=== PATIENT | female | born 1970 | race Hispanic/Latino ===

== ENCOUNTER 2017-01-23 10:50 | Emergency (ER) | payer OTHER, SELFPAY ==
--- NOTE | 2017-01-23 12:46 | RAD ---
CHEST 1 VIEW: HISTORY: Cough. COMPARISON: 10/21/16. FINDINGS: Cardiac silhouette is magnified by projection. Pulmonary vasculature is unremarkable. Mediastinum i s midline. There is no lobar consolidation or evidence of pneumothorax. IMPRESSION: No active cardiopulmonary abnormalities are demonstrated. POS: [facility]
== END 2017-01-23 13:17 | disposition home or self-care (01) ==
LOC: ERS 10:50
DX: J06.9 Acute upper respiratory infection, unspecified (principal); E11.9 Type 2 diabetes mellitus without complications; F41.9 Anxiety disorder, unspecified; Z87.891 Personal history of nicotine dependence; Z79.4 Long term (current) use of insulin; Z79.899 Other long term (current) drug therapy
CPT/HCPCS: 71010

== ENCOUNTER 2017-08-11 17:14 | Emergency (ER) | payer OTHER, SELFPAY ==
[2017-08-11] MEDS ORDERED: Ketorolac Tromethamine 30 MG/ML VIAL ONE (17:28)
[2017-08-11 17:41] LABS: Bilirubin Negative (Negative); Blood, Urine Trace (Negative); Clarity Cloudy (Clear); Glucose, Urine (Dipstick) 500 mg/dL (Negative); Leukocyte Negative (Negative); Nitrite Negative (Negative); Protein, Urine (Dipstick) Negative (Neg-Trace); Specific Gravity, Urine 1.015 (1.005-1.030); Urobilinogen 0.2 mg/dL (0.2-1.0)
[2017-08-11 17:43] LABS: Bacteria/HPF 3+ HPF (None Seen); RBC/HPF 0-3 HPF (0-3)
== END 2017-08-11 17:56 | disposition home or self-care (01) ==
LOC: SCSER 17:14
DX: N39.0 Urinary tract infection, site not specified (principal); E11.9 Type 2 diabetes mellitus without complications; F41.9 Anxiety disorder, unspecified; Z87.442 Personal history of urinary calculi; Z79.899 Other long term (current) drug therapy; Z79.4 Long term (current) use of insulin
CPT/HCPCS: 81003; 81015; 87077; 87086; 96372; J1885

== ENCOUNTER 2017-12-18 11:28 | Emergency (ER) | payer OTHER ==
[2017-12-18] MEDS ORDERED: Ondansetron ODT 4 MG TAB ONE (12:56)
[2017-12-18] MEDS ORDERED: Morphine 4 MG/ML VIAL ONE (12:56)
[2017-12-18 12:59] LABS: #Eosinphils 0.1 thou/uL (0.0-0.7); #Lymphocytes 2.4 thou/uL (1.20-3.40); #Monocytes 0.9 thou/uL (0.11-0.59); #Neutrophils 6.7 thou/uL (1.40-6.50); %Basophils 0.3 % (0.0-1.0); %Eosinophils 0.5 % (0.0-10.0); %Lymphocytes 23.5 % (21.0-51.0); %Neutrophils 66.7 % (42.0-75.0); Hemoglobin 10.9 g/dL (12.0-16.0); Mean Corpuscular HGB CONC 29.7 g/dL (32.0-36.0); Mean Corpuscular Hemoglobin 21.9 pg (27.0-31.0); Mean Corpuscular Volume 73.9 fL (78.0-98.0); Mean Platelet Volume 7.3 fL (7.4-10.4); Platelet Count 488 thou/uL (130-400); RBC Distribution Width 17.1 % (11.5-14.5); Red Blood Cell (RBC) Count 4.97 mill/uL (4.20-5.40)
[2017-12-18 13:03] LABS: ALT (SGPT) 9 U/L (8-55); AST (SGOT) 14 U/L (5-34); Albumin 3.4 g/dL (3.5-5.0); Alkaline Phosphatase 92 U/L (40-150); Anion Gap 9 mmol/L (10-20); BUN (Urea Nitrogen) 12 mg/dL (7.0-18.7); Bilirubin, Total 0.3 mg/dL (0.2-1.2); CK (CPK) 34 U/L (29-168); CKMB 0.8 ng/mL (0-6.6); Calc. Creatinine Clearance 0 mL/min (70-130); Calcium 8.8 mg/dL (7.8-10.44); Carbon Dioxide 28 mmol/L (22-29); Chloride 101 mmol/L (98-107); Estimated GFR-MDRD 83; Globulin 3.3 g/dL (2.4-3.5); Glucose 161 mg/dL (70-105); Lipase 12 U/L (8-78); Potassium 3.9 mmol/L (3.5-5.1); Protein, Total 6.7 g/dL (6.0-8.3); Sodium 134 mmol/L (136-145); Troponin I Less than 0.010 ng/mL (< 0.028)
[2017-12-18 13:14] LABS: Hypochromia SLIGHT = 6-15 cells (100X) (0-5/hpf); MDiff Complete? YES; Microcytosis SLIGHT = 6-15 cells (100X) (0-5/hpf); PLT Morphology Comment Appears Increased; Polychromasia SLIGHT = 2-3 cells (100X) (0-2/hpf)
[2017-12-18] MEDS ORDERED: ISOVUE-370 76%-LOCM 1 ML ONE (13:31)
[2017-12-18] MEDS ORDERED: Iopamidol 370 76% 50 ML VIAL FS ONE (13:31)
[2017-12-18 13:47] LABS: Bilirubin Negative (Negative); Blood, Urine Negative (Negative); Clarity CLEAR (Clear); Glucose, Urine (Dipstick) Negative (Negative); Leukocyte Negative (Negative); Nitrite Negative (Negative); Protein, Urine (Dipstick) Negative (Neg-Trace); Specific Gravity, Urine 1.033 (1.002-1.036); Urobilinogen 0.2 mg/dL (0.2-1.0); pH, Urine 7.5 (5.0-9.0)
--- NOTE | 2017-12-18 13:55 | CT ---
CT OF THE ABDOMEN AND PELVIS WITH IV CONTRAST: INDICATION: History of abdominal pain. FINDINGS: There are new reticulonodular opacities seen within the lateral aspect of the left lower lobe which i s new from a comparison in 02/23/2016. There is otherwise subsegmental volume loss. There is wall t hickening involving the distal esophagus. There is postsurgical change of a gastroplasty. There is stable fatty infiltration of the liver. Adrenal glands are normal appearing. The visualize d spleen appears within normal limits. The visualized pancreas is normal appearing. No hydronephros is is evident. No lymphadenopathy is evident. No free fluid is demonstrated. The bladder, rectum, and perirectal soft tissues are unremarkable. There is a normal appendix in the right lower quadrant of the abdomen. There is diffuse osteopenia. There is scattered degenerative and osteoarthritic change. No acute os seous abnormality is evident. IMPRESSION: 1. No CT explanation for the patient's abdominal pain. 2. Reticulonodular opacities within the left lower lobe can be seen with a respiratory bronchiolitis . Recommend correlation with the clinical examination. Nonemergent CT thorax followup may be helpfu l to document resolution in 6-8 weeks. 3. Wall thickening the distal esophagus can be related to under distention or possible esophagitis. Malignancy is felt to be less likely, but cannot be entirely excluded. 4. Gastroplasty changes. 5. Fatty liver. 6. Other chronic findings as above. POS: [facility]
--- NOTE | 2017-12-23 11:21 | EKG ---
Test Reason : Blood Pressure : / mmHG Vent. Rate : 068 BPM Atrial Rate : 068 BPM P-R Int : 112 ms QRS Dur : 086 ms QT Int : 474 ms P-R-T Axes : 037 078 016 degrees QTc Int : 504 ms Normal sinus rhythm Prolonged QT Abnormal ECG Confirmed by LAURENT MUHAMMAD, FRANCO (12), photo editor SHERMAN HAMPTON ([id number]) on 12/23/2017 11:20:50 AM Referred By: LAURENT Confirmed By:FRANCO MANCILLA MD
== END 2017-12-18 14:22 | disposition home or self-care (01) ==
LOC: ERS 11:28
DX: E86.0 Dehydration (principal); R10.13 Epigastric pain; R19.7 Diarrhea, unspecified; E11.9 Type 2 diabetes mellitus without complications; Z87.891 Personal history of nicotine dependence; Z79.4 Long term (current) use of insulin; Z79.899 Other long term (current) drug therapy
CPT/HCPCS: 74177; 80053; 81003; 82553; 83690; 84484; 85025; 93005; 96361; 96374; J2270; Q0162

== ENCOUNTER 2018-04-24 14:35 | Outpatient (CLI) | payer OTHER, BC ==
--- NOTE | 2018-04-24 15:24 | ULT ---
LIMITED ULTRASOUND LEFT BREAST: Date: 04/24/18 HISTORY: Pain in lower left breast. FINDINGS: Limited sonographic evaluation was obtained of the left breast in the region of patient's focal area of pain, with images obtained from the 5:00 to 7:00 position of the left breast. No mass or cystic le isreal is seen in the left breast. No other findings. IMPRESSION: BIRADS Category 2 - Benign findings. Annual mammographic screening is recommended. No mass or cystic lesion is seen in the left breast to correspond to patient's area of pain. The guilherme ent's area of pain should be further managed clinically. POS: [facility]
== END 2018-04-24 14:36 | disposition home or self-care (01) ==
LOC: BICMAMMO 14:35
PROVIDERS: ATTEND Family Medicine
DX: N63.10 Unspecified lump in the right breast, unspecified quadrant (principal); R92.1 Mammographic calcification found on diagnostic imaging of breast; N64.4 Mastodynia
CPT/HCPCS: 77066; G0279

== ENCOUNTER 2018-08-09 13:45 | Emergency (ER) | payer OTHER, BC ==
[2018-08-09 14:27] LABS: #Eosinphils 0.1 thou/uL (0.0-0.7); #Lymphocytes 2.7 thou/uL (1.20-3.40); #Monocytes 1.3 thou/uL (0.11-0.59); #Neutrophils 9.7 thou/uL (1.40-6.50); %Basophils 0.1 % (0.0-1.0); %Eosinophils 0.6 % (0.0-10.0); %Lymphocytes 19.4 % (21.0-51.0); %Monocytes 9.7 % (0.0-10.0); %Neutrophils 70.2 % (42.0-75.0); Hemoglobin 9.5 g/dL (12.0-16.0); Mean Corpuscular HGB CONC 29.5 g/dL (32.0-36.0); Mean Corpuscular Hemoglobin 21.7 pg (27.0-31.0); Mean Corpuscular Volume 73.5 fL (78.0-98.0); Mean Platelet Volume 6.6 fL (7.4-10.4); Platelet Count 569 thou/uL (130-400); RBC Distribution Width 15.9 % (11.5-14.5); Red Blood Cell (RBC) Count 4.39 mill/uL (4.20-5.40); White Blood Cell (WBC) Count 13.8 thou/uL (4.8-10.8)
[2018-08-09 14:43] LABS: Anisocytosis SLIGHT = 6-15 cells (100X) (0-5/hpf); Hypochromia SLIGHT = 6-15 cells (100X) (0-5/hpf); MDiff Complete? YES; Microcytosis SLIGHT = 6-15 cells (100X) (0-5/hpf); Ovalocytes SLIGHT = 2-5 cells (100X) (0-1/hpf); Platelet Morphology Comment Appears Increased; Polychromasia SLIGHT = 2-3 cells (100X) (0-2/hpf)
[2018-08-09 14:50] LABS: ALT (SGPT) 10 U/L (8-55); AST (SGOT) 11 U/L (5-34); Albumin 3.4 g/dL (3.5-5.0); Alkaline Phosphatase 80 U/L (40-150); Anion Gap 12 mmol/L (10-20); BUN (Urea Nitrogen) 14 mg/dL (7.0-18.7); Bilirubin, Total 0.3 mg/dL (0.2-1.2); Calc. Creatinine Clearance 0 mL/min (70-130); Calcium 9.1 mg/dL (7.8-10.44); Carbon Dioxide 24 mmol/L (22-29); Chloride 100 mmol/L (98-107); Estimated GFR-MDRD 73; Globulin 3.2 g/dL (2.4-3.5); Glucose 244 mg/dL (70-105); Potassium 3.5 mmol/L (3.5-5.1); Protein, Total 6.6 g/dL (6.0-8.3); Sodium 132 mmol/L (136-145)
[2018-08-09] MEDS ORDERED: Ondansetron ODT 4 MG TAB ONE (14:50)
[2018-08-09] MEDS ORDERED: Promethazine HCl 25 MG/ML VIAL ONE (17:37)
[2018-08-09] MEDS ORDERED: Lorazepam 2 MG/ML VIAL ONE (18:24)
== END 2018-08-09 16:50 | disposition home or self-care (01) ==
LOC: ERS 13:45
DX: R11.2 Nausea with vomiting, unspecified (principal); F32.9 Major depressive disorder, single episode, unspecified; F41.9 Anxiety disorder, unspecified; E11.9 Type 2 diabetes mellitus without complications; Z87.442 Personal history of urinary calculi; F17.210 Nicotine dependence, cigarettes, uncomplicated; Z79.4 Long term (current) use of insulin; Z79.899 Other long term (current) drug therapy
CPT/HCPCS: 36415; 80053; 85025; 96361; 96374; 96375; J2060; J2550; Q0162

== ENCOUNTER 2019-05-14 09:55 | Observation (INO) | payer BC, OTHER ==
[2019-05-14 10:20] LABS: #Basophils 0.1 thou/uL (0.0-0.2); #Eosinphils 0.1 thou/uL (0.0-0.7); #Lymphocytes 2.2 thou/uL (1.20-3.40); #Monocytes 1.2 thou/uL (0.11-0.59); #Neutrophils 6.3 thou/uL (1.40-6.50); %Basophils 0.6 % (0.0-1.0); %Eosinophils 0.7 % (0.0-10.0); %Lymphocytes 22.6 % (21.0-51.0); %Monocytes 12.2 % (0.0-10.0); %Neutrophils 63.9 % (42.0-75.0); Hemoglobin 10.7 g/dL (12.0-16.0); Mean Corpuscular Hemoglobin 24.7 pg (27.0-31.0); Mean Corpuscular Volume 79.5 fL (78.0-98.0); Mean Platelet Volume 6.2 fL (7.4-10.4); Platelet Count 584 thou/uL (130-400); RBC Distribution Width 16.3 % (11.5-14.5); Red Blood Cell (RBC) Count 4.32 mill/uL (4.20-5.40); White Blood Cell (WBC) Count 9.9 thou/uL (4.8-10.8)
--- NOTE | 2019-05-14 10:27 | RAD ---
XR Chest 1 View Portable HISTORY: Chest pain radiating to the left arm COMPARISON: 01/23/2017 FINDINGS: The heart size is normal. The lungs are expanded with mild infiltrates bilaterally, with pr edominance in the right lower lung. No pneumothoraces or pleural effusions are seen. There are degenerative changes in the spine.
[2019-05-14 10:46] LABS: ALT (SGPT) 8 U/L (8-55); AST (SGOT) 14 U/L (5-34); Albumin 3.2 g/dL (3.5-5.0); Alkaline Phosphatase 94 U/L (40-110); Anion Gap 12 mmol/L (10-20); BUN (Urea Nitrogen) 18 mg/dL (7.0-18.7); Bilirubin, Total Less than 0.2 mg/dL (0.2-1.2); CK (CPK) 38 U/L (29-168); Calc. Creatinine Clearance 0 mL/min (70-130); Calcium 8.3 mg/dL (7.8-10.44); Carbon Dioxide 26 mmol/L (22-29); Chloride 102 mmol/L (98-107); Estimated GFR-MDRD 76; Globulin 3.6 g/dL (2.4-3.5); Glucose 119 mg/dL (70-105); Lipase 22 U/L (8-78); Potassium 3.8 mmol/L (3.5-5.1); Protein, Total 6.8 g/dL (6.0-8.3); Sodium 136 mmol/L (136-145)
[2019-05-14] MEDS ORDERED: Nitroglycerin 2% Ointment 1 INCH/1 GM Packet ONE (11:14)
[2019-05-14] MEDS ORDERED: Aspirin Chewable 81 MG TAB ONE (11:14)
--- NOTE | 2019-05-14 11:39 | PDOC.FPRHP ---
- History of Present Illness Chief Complaint: chest pain History of Present Illness: 4 y/o F with pmhx of insulin dependent DM II, HTN, and strong fhx of CAD, presents to the eD with X2 week worsening dyspnea on exertion. Pt c/o sharp CP intermittent since Monday with radiation to the L shoulder and arm. Not associated with exertion. C/o associated palpitations, anxiety, and fatigue. PT c/o heart burn that was alleviated with pepto bismol. Pt became very SOB while walking to the shower on Monday, and was unable to breathe well. Denies associated N/V, diaphoresis. C/o PND. PT states she has been on Bactrim for about 2 weeks for an infected fingernail that ulcerated. She stopped taking it as prescribed because of nausea with the medication. PCP: Dr. Aguilar ED course: ekg normal trop neg wbc 9.9 CXR: bibasilar patchy infiltrates - Allergies/Adverse Reactions Allergies Allergy/AdvReac Type Severity Reaction Status Date / Time No Known Allergies Allergy Verified 02/28/13 13:43 - Home Medications Medication Instructions Recorded Confirmed Type Escitalopram Oxalate [Lexapro] 20 mg PO QPM 02/28/13 05/14/19 History Lisinopril 20 mg PO QPM 09/08/15 05/14/[address] [Depakote] 500 mg PO QPM 05/14/19 05/14/19 History - History PMHx: Insulin dependent DM II, HTN, Vitamin D deficiency, iron deficiency anemia PSHx: lapband with gastric sleeve revision. Hysterectomy. FHx: Mother: DM II. Father: CAD, HTN. Sister: CAD CABG @ 59 y/o, HTN, DM II. Brother: CHF, DM II, . Social: Prior 1 ppd for 17 years smoker. Recently cut back to 2 cigarettes per day 4 months ago. etoh: previous 2-4 beer at a time 1-2 times per week. no illicit drug use currently, used marijuana younger. - Review of Systems General: reports: fever/chills, night sweats, fatigue Eyes: denies: eye pain ENT: denies: nasal congestion Respiratory: reports: shortness of breath, exercise intolerance. denies: cough , congestion Cardiovascular: reports: chest pain, palpitation, paroxysmal nocturnal dyspnea. denies: edema, orthopnea Gastrointestinal: reports: nausea. denies: vomiting, diarrhea, abdominal pain Genitourinary: denies: incontinence Skin: reports: other (chronic ulcer on R digit hand). denies: rashes Musculoskeletal: reports: pain (R hand digit), swelling (R hand digit) Neurological: reports: numbness (B toes). denies: seizure Psychological: reports: anxiety, depression - Vital signs VITAL SIGNS May 14, 2019 11:13 FRANCESCA Plascencia Tyler BP: 117/75, Pulse: 86, Resp: 16, Temp: 98.6 (Oral), Pain: 4, O2 sat: 98 on ( Room Air), Time: 05/14/2019 11:13. weight: 70kg - Physical Exam Constitutional: NAD, awake, alert and oriented, well developed HEENT: normocephalic and atraumatic, PERRLA, EOMI, conjunctiva clear, no scleral icterus, grossly normal vision, grossly normal hearing, MMM, oropharynx clear Neck: supple, trachea midline, no JVD, no thyromegaly Chest: no-tender to palpation, no lesions Heart: RRR, normal S1/S2, no murmurs/rubs/gallops, pulses present, no edema Lungs: good air movement, no wheezing, no retractions -Lungs: Bibasilar crackles Abdomen: soft, non-tender, bowel sounds present, no masses/distention, no hernias Musculoskeletal: normal structure, normal tone, ROM grossly normal -Musculoskeletal: R hand digit unhealing ulcer with escar present over wound Neurological: no focal deficit, DTRs 2+ Skin: good turgor, no jaundice Heme/Lymphatic: no purpura, no petechia Psychiatric: normal mood and affect, good judgment and insight, intact recent and remote memory FMR H&P: Results - Labs Result Diagrams: 05/14/19 10:05 05/14/19 10:05 Lab results: WBC 9.9 thou/uL (4.8-10.8) 05/14/19 10:05 Hgb 10.7 g/dL (12.0-16.0) L 05/14/19 10:05 Hct 34.3 % (36.0-47.0) L 05/14/19 10:05 MCV 79.5 fL (78.0-98.0) 05/14/19 10:05 Plt Count 584 thou/uL (130-400) H 05/14/19 10:05 Neutrophils % 63.9 % (42.0-75.0) 05/14/19 10:05 Sodium 136 mmol/L (136-145) 05/14/19 10:05 Potassium 3.8 mmol/L (3.5-5.1) 05/14/19 10:05 Chloride 102 mmol/L (98-107) 05/14/19 10:05 Carbon Dioxide 26 mmol/L (22-29) 05/14/19 10:05 BUN 18 mg/dL (7.0-18.7) 05/14/19 10:05 Creatinine 0.80 mg/dL (0.6-1.1) 05/14/19 10:05 Glucose 119 mg/dL (70-105) H 05/14/19 10:05 Calcium 8.3 mg/dL (7.8-10.44) 05/14/19 10:05 Total Bilirubin Less than 0.2 mg/dL (0.2-1.2) L 05/14/19 10:05 AST 14 U/L (5-34) 05/14/19 10:05 ALT 8 U/L (8-55) 05/14/19 10:05 Alkaline Phosphatase 94 U/L (40-110) 05/14/19 10:05 Creatine Kinase 38 U/L (29-168) 05/14/19 10:05 Serum Total Protein 6.8 g/dL (6.0-8.3) 05/14/19 10:05 Albumin 3.2 g/dL (3.5-5.0) L 05/14/19 10:05 Lipase 22 U/L (8-78) 05/14/19 10:05 - EKG Interpretation EKG: NSR - Radiology Interpretation Chest x-ray Status: image reviewed by me, report reviewed by me (bibasilar patchy infiltrates) FMR H&P: A/P - Problem List (1) Atypical chest pain Current Visit: Yes Status: Acute Code(s): R07.89 - OTHER CHEST PAIN (2) Atypical pneumonia Current Visit: Yes Status: Acute Code(s): J18.9 - PNEUMONIA, UNSPECIFIED ORGANISM (3) Exertional dyspnea Current Visit: Yes Status: Acute Code(s): R06.09 - OTHER FORMS OF DYSPNEA (4) Dry gangrene Current Visit: Yes Status: Acute Code(s): I96 - GANGRENE, NOT ELSEWHERE CLASSIFIED (5) Anxiety Current Visit: No Status: Active Code(s): F41.9 - ANXIETY DISORDER, UNSPECIFIED (6) Diabetes mellitus type 2 Current Visit: No Status: Active Code(s): E11.9 - TYPE 2 DIABETES MELLITUS WITHOUT COMPLICATIONS - Plan 49 y/o F with a strong FMHx of CAD and DC, admitted to tele obs for ACS rule out 1. ACS rule out, Atypical CP - substernal, sharp, L arm radiation, exertional SOB - Intial trop neg, tending X2, EGK normal initially. - Ordered stress test, and echo - TSH, FLP, A1C ordered - strong FHx of CAD 2. Progressive dypsnea on exertion - could be due to angina, vs atypical pneumonia as consistent with CXR. - CXR: bibasilar patchy infiltrates. - Start azithromycin to cover for atypicals. Blood ccx's received. will stop pending ccx's. - Wells score 0, PE very unlikely. - will treat for atypical pneumonia and monitor for improvement. - Ordered BNP 51.1 and TTE to evaluate for possible heart etiology. 3. Suspected Dry Gangrene - Chronic unhealing ulcer to digit on R hand. - Non-compliance with outpt PO bactrim therapy via Dr. Aguilar - Will start zosyn IV therapy. - Ordered hand xray 4. DM Type II - last A1C about 2.5 months ago 8.1%, ordered A1c and 8.3% - will restart home dose insulin - AC/HS accuchecks with SSI 5. HTN - continue home medications 6. Hx of gastric sleeve sx revision of lapband - stable, 4 years ago. 7. Hx of iron deficiency anemia - H/H: 10.7/34.3 - will add iron studies and b12/folate - MCV 79.5, could be mixed deficiency 8. Hx of vitamin D deficiency Code status: full code diet: CC, NPO after midnight dvt ppx: lovenox Dispo: stable, admit to obs for aCS rule out and antibiotics for atypical pneumonia and dry gangrene of R digit. FMR H&P: Upper Level - Plan Date/Time: 05/14/19 1138 I, Gentry Green PGY2, have evaluated this patient and agree with findings/plan as outlined by analysis internship resident. Pertinent changes/additions are listed here. 49yo F presents with 2 week hx of worsening CP on the L that is stabbing and radiating to L shoulder, it is relieved by pepto bismol, no exacerbating factors. She has strong family hx of CAD. PErsonal hx of DM and smoking. She also complains of related SOB on exertion and paroxysmal nocturnal dyspnea. On exam vitals are WNL. Lungs have bilateral inspiratory crackles on inspiration in mid and lower lungs. dry necrotic digit. LEs are not edematous bilaterally. CXR shows bilateral patchy infiltrate. EKG wnl. ASSESMENT AND PLAN Atypical CP likely 2/2 GI A- history is somewhat concerning though it reassuring that pain has been relieved by pepto bismol. considering her risk factors we will r/o ACS. EKG wnl , CXR shows bilateral patchy infiltrate P- admit to tele obs -trend trops -plan for stress test tomorrow -BNP progressive SOB on exertion A- unclear etiology. CXR shows patchy bilateral infiltrates. Possibly 2/2 frequent aspriation, pt is at higher risk for this with hx of bariatric surgery. Also considering mild pulm edema/CHF with hx of paroxysmal nocturnal dyspnea. P- BNP -BCx -start azithro + zosyn (for dual coverage, possible osteo on R digit) -montitor respiratory status and WBC R digit A- appears to be dry gangren, pt has hx of DM. possible osteo P- will get XR -zosyn as stated above Anemia 2/2 iron deficiency A- MD aware P- monitor h/h daily, restart home iron and vitamins Thrombocytosis A- likely reactive P- trend daily, recommend oupt workup if it persists DM2 -resume home medications. SSI, ACHS POC glucose Vitamin D deficiency, iron deficiency, depression, Hx of bariatric surgery -home medications dispo: tele, obs CODE: FULL
[2019-05-14] MEDS ORDERED: Ondansetron ODT 4 MG TAB PO PRN (13:03)
[2019-05-14] MEDS ORDERED: Azithromycin 250 MG in Syringe 0 ML IVPB SCH (13:30)
[2019-05-14 13:32] LABS: Hemoglobin A1c 8.3 % (4.0-6.0)
[2019-05-14] MEDS ORDERED: Dextrose 5% in Water 1,000 ML IV PRN (14:05)
[2019-05-14] MEDS ORDERED: Dextrose 50% Abboject 50 ML SYRINGE SLOW IVP PRN (14:05)
[2019-05-14] MEDS ORDERED: HumaLOG 300 UNITS/3 ML VIAL SC PRN ×2 (14:05)
--- NOTE | 2019-05-14 14:08 | RAD ---
RIGHT HAND 3 VIEWS: HISTORY: Chronic finger wound. FINDINGS: Comparison is made with the exam of 02/14/2012. The bone cyst noted at the base of the middle phalan x of the 5th digit is smaller and demonstrates incomplete/partial healing. No definite osteolysis is seen to suggest acute osteomyelitis. This exam was interpreted in consultation with Dr. Michelet Issa who concurs. POS: [facility]
[2019-05-14 14:46] LABS: Troponin I Less than 0.010 ng/mL (< 0.028)
[2019-05-14] MEDS ORDERED: Azithromycin 500 MG in Sodium Chloride 0.9% 250 ML 250 ML IVPB SCH (15:30)
[2019-05-14 16:00] VITALS: BMI 29.2
[2019-05-14 17:12] LABS: Iron 18 ug/dL (50-170); Iron Binding Capacity, Total 294 mcg/dL (265-497)
[2019-05-14 17:28] LABS: Ferritin 13.54 ng/mL (10-291)
[2019-05-14] MEDS: Piperacillin/Tazobactam 3.375 GM in Sodium Chloride 0.9% 100 ML IVPB SCH (18:31)
[2019-05-14] MEDS ORDERED: Melatonin 3 MG TAB PO PRN (19:36)
[2019-05-14] MEDS ORDERED: Divalproex Sodium DR 500 MG TAB PO SCH (21:00)
[2019-05-14] MEDS ORDERED: Lisinopril 20 MG TAB PO SCH (21:00)
[2019-05-14] MEDS ORDERED: Escitalopram Oxalate 20 mg Tablet PO SCH (21:00)
[2019-05-14] MEDS ORDERED: Mag-Al 1200 mg/1200 mg/30 ML UDCUP PO PRN (21:06)
[2019-05-14] MEDS ORDERED: Ibuprofen 600 MG TAB PO PRN (22:01)
[2019-05-15] MEDS: Piperacillin/Tazobactam 3.375 GM in Sodium Chloride 0.9% 100 ML IVPB SCH ×3 (00:10→12:57)
[2019-05-15 04:50] LABS: #Eosinphils 0.1 thou/uL (0.0-0.7); #Lymphocytes 2.2 thou/uL (1.20-3.40); #Neutrophils 5.8 thou/uL (1.40-6.50); %Basophils 0.3 % (0.0-1.0); %Eosinophils 0.8 % (0.0-10.0); %Lymphocytes 24.4 % (21.0-51.0); %Monocytes 10.9 % (0.0-10.0); %Neutrophils 63.5 % (42.0-75.0); Hemoglobin 10.3 g/dL (12.0-16.0); Mean Corpuscular HGB CONC 31.9 g/dL (32.0-36.0); Mean Corpuscular Hemoglobin 25.2 pg (27.0-31.0); Mean Platelet Volume 6.5 fL (7.4-10.4); Platelet Count 495 thou/uL (130-400); RBC Distribution Width 16.2 % (11.5-14.5); White Blood Cell (WBC) Count 9.1 thou/uL (4.8-10.8)
[2019-05-15 05:29] LABS: Anion Gap 11 mmol/L (10-20); BUN (Urea Nitrogen) 16 mg/dL (7.0-18.7); Calc. Creatinine Clearance 99 mL/min (70-130); Calcium 8.2 mg/dL (7.8-10.44); Carbon Dioxide 22 mmol/L (22-29); Cardiac Risk 5.4 (Less than 4.5); Chloride 104 mmol/L (98-107); Cholesterol 166 mg/dl (< 200 Desired); Estimated GFR-MDRD 75; Glucose 144 mg/dL (70-105); HDL Cholesterol 31 mg/dL (>60 Neg Risk); LDL Cholesterol, Calculated 76 mg/dL; Potassium 4.2 mmol/L (3.5-5.1); Sodium 133 mmol/L (136-145); Triglycerides 295 mg/dL (Less than 150)
[2019-05-15] MEDS ORDERED: ADENOSINE 60 MG/20 ML VIAL ONE (08:41)
--- NOTE | 2019-05-15 08:41 | PDOC.FM ---
- Subjective Subjective: Doing well reports she no longer has SOB or CP. no complaints no fever/chills, no sob no cough - Objective Vital Signs & Weight: Vital Signs (12 hours) Temp Pulse Resp BP Pulse Ox 05/15/19 04:50 97.6 F 78 16 131/63 98 05/14/19 23:30 98.4 F 92 14 125/58 L 98 Weight Weight 75.342 kg I&O: 05/14/19 05/15/19 05/16/19 06:59 06:59 06:59 Intake Total 1550 Output Total 325 Balance 1225 Result Diagrams: 05/15/19 04:21 05/15/19 04:21 Phys Exam - Physical Examination Constitutional: NAD HEENT: moist MMs, sclera anicteric Neck: supple, full ROM Respiratory: no wheezing fine bibasilar crackles Cardiovascular: RRR, no significant murmur Gastrointestinal: soft, non-tender Musculoskeletal: no edema, pulses present Neurological: normal sensation, moves all 4 limbs Psychiatric: normal affect, A&O x 3 Skin: no rash, normal turgor Dx/Plan (1) Atypical chest pain Code(s): R07.89 - OTHER CHEST PAIN Status: Acute (2) Dry gangrene Code(s): I96 - GANGRENE, NOT ELSEWHERE CLASSIFIED Status: Acute (3) Exertional dyspnea Code(s): R06.09 - OTHER FORMS OF DYSPNEA Status: Acute (4) Anxiety Code(s): F41.9 - ANXIETY DISORDER, UNSPECIFIED Status: Active (5) Diabetes mellitus type 2 Code(s): E11.9 - TYPE 2 DIABETES MELLITUS WITHOUT COMPLICATIONS Status: Active - Plan Plan: Atypical CP likely 2/2 GI A- trops negative x3. history is somewhat concerning though it reassuring that pain has been relieved by pepto bismol. considering her risk factors we will r/ o ACS. EKG wnl, CXR shows bilateral patchy infiltrate. ECHO unremarkable. P- stress test this AM progressive SOB on exertion A- unclear etiology. CXR shows patchy bilateral infiltrates. Possibly 2/2 frequent aspriation, pt is at higher risk for this with hx of bariatric surgery. Echo shows normal EF P- continue zosyn and azithro, will discuss possible DC on rounds -procal this AM R digit A- appears to be dry gangren, pt has hx of DM. XR unconcerning for osteo P- f/u outpt Anemia 2/2 iron deficiency A- MD aware P- monitor h/h daily, restart home iron and vitamins Thrombocytosis A- likely reactive P- trend daily, recommend oupt workup if it persists DM2 -resume home medications. SSI, ACHS POC glucose Vitamin D deficiency, iron deficiency, depression, Hx of bariatric surgery -home medications dispo: tele, obs CODE: FULL Addendum - Attending - Attending Attestation Date/Time: 05/15/19 1100 I personally evaluated the patient and discussed the management with Dr. Green. I agree with the History, Examination, Assessment and Plan documented above with any addition or exceptions noted below. Complete stress testing. 2 view CXR, low risk for COVID at this point. Hand appears to be arterial ulcer, uninfected, will need outpatient follow up.
[2019-05-15] MEDS ORDERED: Enoxaparin Sodium 40 MG/0.4 ML SYRINGE SC SCH (09:00)
--- NOTE | 2019-05-15 09:53 | RAD ---
EXAM: Chest 2 views: HISTORY: Shortness of breath COMPARISON: 10/21/2016 FINDINGS: There is a normal-sized cardiomediastinal silhouette. Increased interstitial markings are present. There is no evidence of consolidation, mass, or pleural effusion. The bones are unremarkable. IMPRESSION: No evidence of acute cardiopulmonary disease
--- NOTE | 2019-05-15 11:26 | NM ---
NM Cardiac Stress W EF WF HISTORY: Chest pain COMPARISON: None. FINDINGS: Examination was performed using a 31.0 mCi 90 9M technetium sestamibi on the stress and 11 mCi on the resting images. This shows a normal distribution of radiopharmaceutical without signs of ischemia or scar. Wall motion: There is symmetric contractility to the ventricle. Left ventricular ejection fraction: The calculated left ventricular ejection fraction 77%. IMPRESSION: Unremarkable myocardial perfusion scan.
[2019-05-15 15:19] VITALS: BP 146/68; TEMP 98.4
[2019-05-15] MEDS ORDERED: Azithromycin 250 MG in Sodium Chloride 0.9% 250 ML 250 ML IVPB SCH (16:00)
--- NOTE | 2019-05-15 16:09 | CON ---
DATE OF CONSULTATION: HISTORY OF PRESENT ILLNESS: This is a pleasant 49-year-old female who had what she thought was an ingrown nail on her right long finger about a month ago. She was treated with Bactrim once a day without any significant improvement. She was admitted with chest pain, rule out AL with a negative echo, negative stress test, and negative enzymes, and I was asked to see her in regard to possible ischemic finger. Her risk factors include diabetes mellitus type 2, hypertension, and a smoking history, although she said she only smokes a couple of cigarettes a week. PAST SURGICAL HISTORY: Gastric bypass. PHYSICAL EXAMINATION: GENERAL: On examination, she is an alert and cooperative lady, in no distress. NECK: No carotid bruits. LUNGS: Clear to auscultation bilaterally. CARDIAC: Regular rate and rhythm. No murmurs. ABDOMEN: Obese and nontender. EXTREMITIES: She has palpable dorsalis pedis pulses bilaterally with no peripheral edema. She has palpable radial pulses bilaterally in her right arm. Has an excellent Doppler signal in her radial, ulnar, and each digital vessel across the fingers of her hand including distally on the long finger. She has eschar on the radial aspect of the tip of the long finger. She has some tight skin on the upper forearms bilaterally as well as some changes on the skin on the anterior chest wall. ASSESSMENT AND PLAN: At this time, her circulation appears more than adequate for healing this ulceration. Consider collagen vascular evaluation as she does have some skin changes. It could be consistent with a diagnosis of scleroderma. Otherwise, I have suggested referral to the hand surgeon for debridement if her collagen vascular workup is negative. If she does have scleroderma, consideration for treatment of this disease may aid with healing of her finger. Job ID: [id number]
[2019-05-15] MEDS ORDERED: Atorvastatin Calcium 40 MG TAB PO SCH (21:00)
[2019-05-16 12:35] LABS: Ref Lab Test Ordered ANTI RNA POL III; Reference Lab Name LABCORP
[2019-05-16 12:36] LABS: Ref Lab Test Ordered ANTI CENTROMERE AB; Reference Lab Name LABCORP
[2019-05-16 12:51] LABS: ANA Symphony (Qualitative) Negative (Negative); ANA Symphony (Quantitative) 0.3 Ratio (< 0.7 Negative); dsDNA IgG Antibody 1.4 IU/mL (<10 Negative)
--- NOTE | 2019-05-16 14:02 | DIS ---
DATE OF ADMISSION: 05/14/2019 DATE OF DISCHARGE: 05/15/2019 RESIDENT: Bry Green MD I personally saw the patient for 2 days. CONSULT: Cardiovascular Surgery, Dr. Chi. PROCEDURES: 1. Chest x-ray on 05/14/2019, impression, mild infiltrates bilaterally with predominance in the right lower lung. 2. Hand x-ray on 05/14/2019, impression, bone cyst was noted in the base of the middle third phalanx of the fifth digit, smaller and demonstrated incomplete partial healing. No middle phalanx. No definite osteolysis is seen to suggest acute osteomyelitis. 3. On 05/15/2019, stress test nuclear medicine, unremarkable. No ischemia. 4. Chest x-ray on 05/15/2019, no acute cardiopulmonary abnormalities. 5. Echocardiogram on 05/14/2019, impression, ejection fraction is 60% to 65%, left ventricular hypertrophy, normal right ventricular size and function, left atrium is of normal size, normal right atrial size, trace mitral regurgitation is present, structurally normal aortic valve, trace tricuspid regurgitation. DISCHARGE MEDICATIONS: 1. Escitalopram 20 mg q.p.m. 2. Lisinopril 20 mg p.o. q.p.m. 3. Depakote 500 mg p.o. q.p.m. 4. Insulin degludec/liraglutide 25 units subcu q.p.m. 5. Atorvastatin 80 mg p.o. at bedtime. 6. Clindamycin 450 mg p.o. q.6 hours x1 week. 7. Lactobacillus one tablet p.o. daily. DISCONTINUED MEDICATIONS: None. PRIMARY DIAGNOSIS: Chest pain, likely secondary to gastroesophageal reflux without acute coronary syndrome. SECONDARY DIAGNOSES: Progressive shortness of breath on exertion, right digit ulceration, iron deficiency anemia, thrombocytosis, type 2 diabetes, vitamin D deficiency, iron deficiency, depression, history of bariatric surgery. HISTORY OF PRESENT ILLNESS/HOSPITAL COURSE: This is a 49-year-old female who presented to the emergency room with chest pain and was admitted for chest pain, rule out ACS. Of note, she also complained of increasing shortness of breath on exertion over the last 2 weeks. Regarding her chest pain, her troponins were negative. Her chest x-ray was negative. EKG was unremarkable, and stress test was also normal. Regarding her shortness of breath, it was thought that undiagnosed CHF could be a possibility as she complaining of paroxysmal nocturnal dyspnea. An echocardiogram was performed and was unremarkable. Initial chest x-ray showed possible bilateral infiltrates, and so, the patient was started on antibiotics for atypical infection; however, repeat chest x-ray was normal, Procalcitonin was normal, the patient was afebrile, and lung exam is clear, and so, antibiotics were eventually stopped. Of note, the patient also had what appeared to be an arterial ulceration on her right middle finger. Cardiovascular Surgery was consulted and recommended outpatient followup with PCP. On exam, the patient was noted to have a stricture of her skin around her right forearm, which was concerning for possible connective tissue disorders. The patient did not complain of any esophageal stricture complaints, and so although the labs were drawn before the patient was discharged. DISPOSITION: Stable. DISCHARGE INSTRUCTIONS: 1. Location: Home. 2. Activity: As tolerated. 3. Diet: Heart healthy and diabetic diet. 4. Followup: Follow up with Dr. Aguilar in 7 days. Job ID: [id number]
--- NOTE | 2019-05-18 13:36 | EKG ---
Test Reason : Blood Pressure : / mmHG Vent. Rate : 084 BPM Atrial Rate : 084 BPM P-R Int : 114 ms QRS Dur : 084 ms QT Int : 394 ms P-R-T Axes : 016 062 059 degrees QTc Int : 465 ms Normal sinus rhythm Cannot rule out Anterior infarct , age undetermined Abnormal ECG Confirmed by LAURENT MUHAMMAD, FRANCO (12), non linear editor SHERMAN HAMPTON ([id number]) on 05/18/2019 1:35:55 PM Referred By: Confirmed By:FRANCO MANCILLA MD
== END 2019-05-15 18:15 | disposition home or self-care (01) ==
LOC: ERS 09:55 → 2SW 12:20
PROVIDERS: ADMIT Family Medicine; ATTEND Family Medicine
DX: R07.89 Other chest pain (principal); E11.9 Type 2 diabetes mellitus without complications; I10 Essential (primary) hypertension; J18.9 Pneumonia, unspecified organism; D50.9 Iron deficiency anemia, unspecified; F17.210 Nicotine dependence, cigarettes, uncomplicated; D47.3 Essential (hemorrhagic) thrombocythemia; E55.9 Vitamin D deficiency, unspecified; F41.9 Anxiety disorder, unspecified; F32.9 Major depressive disorder, single episode, unspecified; Z79.4 Long term (current) use of insulin; Z79.899 Other long term (current) drug therapy
CPT/HCPCS: 36415; 36416; 71045; 71046; 78452; 80048; 80053; 80061; 82550; 82607; 82728; 82746; 83036; 83540; 83550; 83690; 83880; 84145; 84443; 84484; 85025; 86038; 86225; 87040; 93005; 93017; 93306; 94760; 96360; 96361; 96365; 96366; 96367; 96372; A9500; G0378; J0153; J0456; J1650; J2543; J3490; J7050

== ENCOUNTER → 2019-08-20 | Day surgery (SDC) | payer OTHER ==
[~2019-08-20] MED LIST: Acetaminophen 500 MG TAB PO SCH; Sodium Chloride 0.9% 20 ML ONE; diphenhydrAMINE 25 MG CAP PO SCH
[2019-08-20 14:24] VITALS: BP 109/59; TEMP 97.8
== END ==
LOC: ONC/OP 08:31
PROVIDERS: ATTEND Internal Medicine Hematology & Oncology
PROC: 30233N1 Transfusion of Nonautologous Red Blood Cells into Peripheral Vein, Percutaneous Approach (ICD-10-PCS; principal; 2019-08-20)
DX: D64.9 Anemia, unspecified (principal); D69.6 Thrombocytopenia, unspecified
CPT/HCPCS: 36430; 86850; 86900; 86901; P9016; Q0163

== ENCOUNTER 2020-01-21 13:31 | Inpatient (IN) | payer BC ==
[~2020-01-21 13:31] MED LIST changes: -Acetaminophen 500 MG TAB PO SCH; +Iopamidol-370 76% 500 ML 1 ML ONE; -Sodium Chloride 0.9% 20 ML ONE; -diphenhydrAMINE 25 MG CAP PO SCH
--- NOTE | 2020-01-21 14:22 | RAD ---
XR Chest 1 View Portable HISTORY: Difficulty breathing COMPARISON: 07/26/2019 FINDINGS: The heart size borderline. The lungs are expanded with pulmonary vascular congestion. No lo bar consolidation, pneumothoraces or large effusions are seen.
[2020-01-21 14:24] LABS: #Lymphocytes 1.4 thou/uL (1.20-3.40); #Neutrophils 7.8 thou/uL (1.40-6.50); %Basophils 0.1 % (0.0-1.0); %Eosinophils 0.2 % (0.0-10.0); %Lymphocytes 13.6 % (21.0-51.0); %Monocytes 9.8 % (0.0-10.0); %Neutrophils 76.2 % (42.0-75.0); Hemoglobin 12.5 g/dL (12.0-16.0); Mean Corpuscular HGB CONC 31.1 g/dL (32.0-36.0); Mean Corpuscular Hemoglobin 28.3 pg (27.0-31.0); Mean Corpuscular Volume 91.1 fL (78.0-98.0); Mean Platelet Volume 6.9 fL (7.4-10.4); Platelet Count 447 thou/uL (130-400); RBC Distribution Width 14.5 % (11.5-14.5); Red Blood Cell (RBC) Count 4.41 mill/uL (4.20-5.40); White Blood Cell (WBC) Count 10.3 thou/uL (4.8-10.8)
[2020-01-21] MEDS ORDERED: Acetaminophen 500 MG TAB ONE (14:36)
[2020-01-21] MEDS ORDERED: Albuterol 200 PUFF (6.7GM INHALER) ONE (14:42)
[2020-01-21 14:50] LABS: ALT (SGPT) 9 U/L (8-55); AST (SGOT) 21 U/L (5-34); Albumin 3.1 g/dL (3.5-5.0); Alkaline Phosphatase 128 U/L (40-110); Anion Gap 14 mmol/L (10-20); BUN (Urea Nitrogen) 15 mg/dL (7.0-18.7); Bilirubin, Total 0.4 mg/dL (0.2-1.2); Calc. Creatinine Clearance 0 mL/min (70-130); Calcium 8.8 mg/dL (7.8-10.44); Carbon Dioxide 25 mmol/L (22-29); Chloride 100 mmol/L (98-107); Estimated GFR-MDRD 67; Globulin 4.3 g/dL (2.4-3.5); Glucose 135 mg/dL (70-105); Potassium 4.8 mmol/L (3.5-5.1); Protein, Total 7.4 g/dL (6.0-8.3); Sodium 134 mmol/L (136-145)
[2020-01-21] MEDS ORDERED: cefTRIAXone\\ROCEPHIN 1 GM VIAL ONE (14:57)
[2020-01-21] MEDS ORDERED: Doxycycline 100 MG CAP PO SCH (15:30)
--- NOTE | 2020-01-21 16:22 | CT ---
EXAM: CT pulmonary angiogram with IV contrast and three-dimensional reconstructions PROVIDED CLINICAL HISTORY: Shortness of breath COMPARISON: None FINDINGS: No evidence for central or segmental pulmonary embolus. Vascular calcification including coronary jay cium is demonstrated. There is a small pericardial effusion. Multiple enlarged mediastinal lymph nodes are demonstrated. The airway appears patent and of normal caliber. There is interstitial thickening diffusely with groundglass opacities noted involving the lungs bilat erally, predominating at the lung bases. There are small bilateral pleural effusions. There is no evidence for pneumothorax. The visualized portions of the upper abdomen demonstrate no significant abnormality. Sleeve gastrecto my changes are partially visualized. The osseous structures demonstrate no evidence for concerning lytic or blastic lesion. IMPRESSION: 1. No evidence for central or segmental pulmonary embolus. 2. Prominent bilateral groundglass opacity suggesting pulmonary edema or less likely atypical pneumon ia. Small bilateral pleural effusions and small pericardial effusion. 3. Mediastinal lymphadenopathy, etiology uncertain.
[2020-01-21] MEDS ORDERED: Nitroglycerin 2% Ointment 1 INCH/1 GM Packet ONE (16:31)
[2020-01-21] MEDS ORDERED: Furosemide 40 MG/4 ML VIAL ONE (16:31)
[2020-01-21 18:01] LABS: Bilirubin Negative (Negative); Blood, Urine Negative (Negative); Clarity Clear (Clear); Glucose, Urine (Dipstick) Normal (Negative); Ketone, Urine 10 mg/dL (Negative); Leukocyte Negative Leu/uL (Negative); Nitrite Negative (Negative); Protein, Urine (Dipstick) Negative (Neg-Trace); Specific Gravity, Urine 1.016 (1.002-1.036); Urobilinogen Normal mg/dL (Less than 2); pH, Urine 6.5 (5.0-9.0)
[2020-01-21 18:23] LABS: Lactic Acid 1.7 mmol/L (0.5-2.2)
--- NOTE | 2020-01-21 18:24 | PDOC.FPRHP ---
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 She c/o flu-like symptoms onset 2 days ago. Started with frontal headache, initially attributed to "sinus problems" and took OTC tylenol/congestion medication which provided mild improvement of headache/congestion but breathing worsened. Subsequently developed nausea, vomiting, body aches, chills, urge to clear throat. No cough, no fever, loss of appetite. Today she endorses worsened SOB with exertion, wheezing. Does use an albuterol inhaler at home. No known sick contacts including no known COVID contacts. Reports she mostly stays at home except for the grocery store. 05/2019 - was admitted in [place] with presumed COVID pneumonia, was subsequently found to have scleroderma and was COVID negative at that time. ED Course: EKG: QT prolongation CTA: no pulmonary embolism, + bilateral ground glass opacity 2/2 pulmonary edema vs bilateral pneumonia, bilateral pleural effusion, small pericardial effusion CXR: pulmonary vascular congestion Meds: nitro patch, lasix, doxycycline, rocephin, albuterol, tylenol BNP: 1374, Lactic acid 2.4, Trop 0.016 - Allergies/Adverse Reactions Allergies Allergy/AdvReac Type Severity Reaction Status Date / Time No Known Allergies Allergy Verified 01/22/20 00:31 - Home Medications Medication Instructions Recorded Confirmed Type Escitalopram Oxalate [Lexapro] 20 mg PO QPM 02/28/13 01/21/20 History Insulin Degludec/Liraglutide 20 units SQ QPM 05/14/19 01/21/20 History [Xultophy 100 Unit-3.6MG/ml Pen] Amlodipine Besylate [amLODIPine 2.5 mg PO DAILY 01/21/20 01/21/20 History Besylate] Atorvastatin Calcium 80 mg PO QPM 01/21/20 01/21/20 History Clopidogrel Bisulfate [Plavix] 75 mg PO DAILY 01/21/20 01/21/20 History Dexlansoprazole [Dexilant] 60 mg PO DAILY 01/21/20 01/21/20 History Lisinopril/Hydrochlorothiazide 1 tablet PO DAILY 01/21/20 01/21/20 History [Lisinopril-Hctz 10-12.5 mg Tab] Metoprolol Succinate 25 mg PO DAILY 01/21/20 01/21/20 History Mycophenolate Mofetil [Cellcept] 1,000 mg PO BID 01/21/20 01/21/20 History buPROPion HCl [Bupropion HCl Sr] 150 mg PO DAILY 01/21/20 01/21/20 History - History PMHx: scleroderma, pulmonary HTN, diabetic retinopathy, T2DM, kidney stones, depression, anxiety PSHx: cardiac stent (05/2019), hysterectomy, tubal ligation, , gastric sleeve, lithotripsy, kidney stent FHx: CAD in multiple relatives, heart failure, thyroid (mother), DM2 in multiple relatives Social: former social smoker, social etoh, denies drug use - Review of Systems General: reports: fever/chills (chills only, denies fever), weight/appetite/sleep changes, fatigue, other (malaise) Eyes: denies: eye pain, vision changes ENT: reports: nasal congestion. denies: rhinorrhea Respiratory: reports: cough, shortness of breath, exercise intolerance Cardiovascular: denies: chest pain, palpitation, edema Gastrointestinal: reports: nausea, vomiting, constipation, abdominal pain. denies: diarrhea, GI bleeding Genitourinary: denies: dysuria, polyuria Skin: denies: rashes, lesions Musculoskeletal: reports: pain (myalgias) Neurological: denies: numbness, weakness Psychological: reports: anxiety, depression - Vital signs BP: 156/93, Pulse: 81, T 97.9F, Resp: 20, O2 sat: 97 on (2L Oxygen), Wt: 69.85 kg - Physical Exam Constitutional: NAD, awake, alert and oriented HEENT: normocephalic and atraumatic, PERRLA, EOMI, conjunctiva clear, grossly normal hearing, MMM, oropharynx clear, good dention Neck: supple, no thyromegaly, other (+LAD) Heart: RRR, normal S1/S2, no murmurs/rubs/gallops, pulses present, no edema Lungs: other (crackles bilat lung bases expiratory wheezing bilat upper lungs) Abdomen: soft, non-tender, bowel sounds present Musculoskeletal: normal structure, normal tone, ROM grossly normal Neurological: no focal deficit, CN II-XII intact, normal sensation Skin: no rash/lesions, good turgor, capillary refill <2 seconds Heme/Lymphatic: no unusual bruising or bleeding, no purpura, no petechia Psychiatric: normal mood and affect, good judgment and insight, intact recent and remote memory FMR H&P: Results - Labs Result Diagrams: 01/22/20 04:12 01/22/20 04:12 Lab results: WBC 10.3 thou/uL (4.8-10.8) 01/21/20 14:04 Hgb 12.5 g/dL (12.0-16.0) 01/21/20 14:04 Hct 40.2 % (36.0-47.0) 01/21/20 14:04 MCV 91.1 fL (78.0-98.0) 01/21/20 14:04 Plt Count 447 thou/uL (130-400) H 01/21/20 14:04 Neutrophils % 76.2 % (42.0-75.0) H 01/21/20 14:04 Sodium 134 mmol/L (136-145) L 01/21/20 14:04 Potassium 4.8 mmol/L (3.5-5.1) 01/21/20 14:04 Chloride 100 mmol/L (98-107) 01/21/20 14:04 Carbon Dioxide 25 mmol/L (22-29) 01/21/20 14:04 BUN 15 mg/dL (7.0-18.7) 01/21/20 14:04 Creatinine 0.89 mg/dL (0.6-1.1) 01/21/20 14:04 Glucose 135 mg/dL (70-105) H 01/21/20 14:04 Lactic Acid 2.4 mmol/L (0.5-2.2) H 01/21/20 15:06 Calcium 8.8 mg/dL (7.8-10.44) 01/21/20 14:04 Total Bilirubin 0.4 mg/dL (0.2-1.2) 01/21/20 14:04 AST 21 U/L (5-34) 01/21/20 14:04 ALT 9 U/L (8-55) 01/21/20 14:04 Alkaline Phosphatase 128 U/L (40-110) H 01/21/20 14:04 B-Natriuretic Peptide 1374.1 pg/mL (0-100) H 01/21/20 15:04 Serum Total Protein 7.4 g/dL (6.0-8.3) 01/21/20 14:04 Albumin 3.1 g/dL (3.5-5.0) L 01/21/20 14:04 Urine Ketones 10 mg/dL (Negative) A 01/21/20 17:25 Urine Blood Negative (Negative) 01/21/20 17:25 Urine Nitrite Negative (Negative) 01/21/20 17:25 Ur Leukocyte Esterase Negative [place]/uL (Negative) 01/21/20 17:25 - EKG Interpretation EKG: For imaging/ekg results see ED course above FMR H&P: A/P - Plan Acute hypoxic Respiratory Failure 2/2 CHF vs ILD exacerbation Possible Acute CHF exacerbation -Hypoxic initially in ED, Satting 80s in ED. Now satting 95% on 2L BNC -Covid negative -Echo 04/2019 shows LVH, normal EF 60-65% -History of pulmonary HTN per patient; No mention of this in echo 04/2019, but scleroderma is new diagnosis -BNP elevated to 1300, s/p 40 mg IV Lasix in ED. -Echo pending, patient follows with Dr. Hutchins -Keep O2 sats >92% -Strict I/O, weigh daily, fluid restrict 1800 ml/day -40 IV lasix QAM ILD Exacerbation / Scleroderma -Scleroderma recently diagnosed 05/2019 -Bilat ground glass opacities on CT chest, Procal negative. Antibiotics discontinued (doxycycline and ceftriaxone 01/20) as this is more of a fluid overload/ILD picture than infectious/pneumonia picture -6 mg Dex today, then start daily prednisone 40 mg qd -continue mycophenolate mofetil -duonebs [facility] q4h -Consult Pulmonology in the AM T2DM -restart equivalent of home insulin: 20 u Lantus daily -Mild SSI -ACHS accuchecks -In setting of steroid administration, she may require more insulin QT prolongation -Do not give QT prolonging medications, including zofran HTN -continue home medications Hx Gastric sleeve -aware Hx Iron Deficiency Anemia -s/p multiple iron transfusions -Difficulty with po absorption after gastric sleeve placement -Hgb 12.5, MCV 90 CARLOS/MDD -continue home medications Pulmonary HTN -as above CAD s/p stent 05/2019 -continue high dose statin and plavix Diet: CC, 1800 ml/day GI ppx: famotidine DVT ppx: lovenox Code status: Full PCP: Nenita Dispo: Admit to tele inpatient, LOS >2 midnights Missy Carrasco MD PGY3 Addendum - Attending - Attending Attestation Date/Time: 01/21/202048 I personally evaluated the patient and discussed the management with Dr. Carrasco I agree with the History, Examination, Assessment and Plan documented above with any addition or exceptions noted below. Patient presents with multiple symptoms but largely respiratory distress. Noted to be hypoxic. Patient with underlying interstitial lung disease and pHTN 2/2 scleroderma causing baseline deficit. However, also noted to have elevated BNP with effusions. Will admit to tele. Continue supplemental O2 and respiratory meds. Will add steroids initially for anti-inflammatory support. ECHO ordered. Continue IV Lasix. Strict I/Os. Trend trop. Procal negative. Hold antibx. Symptoms could possibly be related to a viral etiology but also related to underlying sclerosis and edema. Labs pending to help clarify. Will notify rhuem in AM of admission. COVID pending but not likely. Monitor control of DM due to steroids. Check other vitamin/minerals due to poor GI absorption from gastric surgeries as needed. No evidence of worsening anemia at this time. Marly
[2020-01-21] MEDS ORDERED: Ondansetron PF 4 MG/2 ML Vial ONE (18:42)
[2020-01-21] MEDS ORDERED: Acetaminophen 325 MG TAB ONE (20:20)
[2020-01-21 21:38] LABS: SARS-CoV-2 MS2 Positive; SARS-CoV-2 N Gene Negative; SARS-CoV-2 S Gene Negative; SARS-CoV-2 by NAA Not Detected (NotDetected); SARS-CoV-2 orf1ab Negative
[2020-01-21] MEDS ORDERED: Dexamethasone 4 mg/ml Vial SLOW IVP SCH (21:45)
[2020-01-21] MEDS ORDERED: Enoxaparin Sodium 40 MG/0.4 ML SYRINGE SC SCH (23:02)
[2020-01-21] MEDS ORDERED: Acetaminophen 650 MG Suppository PR PRN (23:02)
[2020-01-21] MEDS ORDERED: Dextrose 5% in Water 1,000 ML IV PRN (23:02)
[2020-01-21] MEDS ORDERED: Dextrose 50% Abboject 50 ML SYRINGE SLOW IVP PRN (23:02)
[2020-01-21] MEDS ORDERED: Famotidine 20 MG TAB PO SCH (23:15)
[2020-01-22 00:32] VITALS: BMI 28.5
[2020-01-22 01:44] LABS: Hemoglobin A1c 6.2 % (4.0-6.0)
[2020-01-22 02:01] LABS: Troponin I 0.024 ng/mL (< 0.028)
[2020-01-22] MEDS: Acetaminophen 325 MG TAB PO PRN (02:11)
[2020-01-22] MEDS: Albuterol Sulfate 2.5 mg/3 ml Neb NEB SCH ×6 (02:24→21:54)
[2020-01-22 04:29] LABS: #Eosinphils 0.1 thou/uL (0.0-0.7); #Lymphocytes 0.6 thou/uL (1.20-3.40); #Monocytes 0.3 thou/uL (0.11-0.59); #Neutrophils 10.1 thou/uL (1.40-6.50); %Basophils 0.1 % (0.0-1.0); %Eosinophils 0.5 % (0.0-10.0); %Lymphocytes 5.5 % (21.0-51.0); %Monocytes 3.1 % (0.0-10.0); %Neutrophils 90.9 % (42.0-75.0); Hemoglobin 12.4 g/dL (12.0-16.0); Mean Corpuscular HGB CONC 30.5 g/dL (32.0-36.0); Mean Corpuscular Hemoglobin 27.8 pg (27.0-31.0); Mean Corpuscular Volume 91.3 fL (78.0-98.0); Mean Platelet Volume 6.9 fL (7.4-10.4); Platelet Count 387 thou/uL (130-400); RBC Distribution Width 14.4 % (11.5-14.5); Red Blood Cell (RBC) Count 4.45 mill/uL (4.20-5.40); White Blood Cell (WBC) Count 11.1 thou/uL (4.8-10.8)
[2020-01-22 04:48] LABS: Anion Gap 15 mmol/L (10-20); BUN (Urea Nitrogen) 18 mg/dL (7.0-18.7); Calc. Creatinine Clearance 81 mL/min (70-130); Calcium 8.4 mg/dL (7.8-10.44); Carbon Dioxide 26 mmol/L (22-29); Chloride 100 mmol/L (98-107); Estimated GFR-MDRD 61; Glucose 184 mg/dL (70-105); Sodium 137 mmol/L (136-145)
--- NOTE | 2020-01-22 05:59 | PDOC.FM ---
- Subjective Subjective: Patient was sleeping comfortably in bed. When I attempted to wake her, she asked that I let her sleepy as she had just fallen asleep. She denied any current pain or difficulty breathing. - Objective MAR Reviewed: Yes Vital Signs & Weight: Vital Signs (12 hours) Temp Pulse Resp BP Pulse Ox 01/22/20 04:00 98.3 F 91 16 145/72 H 94 L 01/22/20 02:24 72 20 95 01/21/20 22:24 98.2 F 83 14 164/78 H 95 Weight Weight 73.21 kg I&O: 01/20/20 01/21/20 01/22/20 06:59 06:59 06:59 Intake Total 180 Output Total 125 Balance 55 Result Diagrams: 01/22/20 04:12 01/22/20 04:12 EKG Reviewed by me: Yes (SR) Phys Exam - Physical Examination Constitutional: NAD HEENT: moist MMs Neck: supple Crackles at the bases, no wheezing heard Cardiovascular: RRR, no significant murmur Gastrointestinal: soft, positive bowel sounds Musculoskeletal: no edema Neurological: non-focal Skin: no rash Dx/Plan - Plan Plan: 1. Acute hypoxic Respiratory Failure 2/ CHF vs ILD exacerbation -Possible Acute CHF exacerbation * Hypoxic initially in ED, Satting 80s in ED. Now satting 95% on 2L BNC, not on O2 at home * Covid negative * Echo 04/2019 shows LVH, normal EF 60-65% * History of pulmonary HTN per patient; No mention of this in echo 04/2019, but scleroderma is new diagnosis * BNP: 1300, s/p 40 mg IV Lasix in ED. * Echo: EF 60-65%, no mention of PAP * Strict I/O, weigh daily, fluid restrict 1800 ml/day * 40 IV lasix QAM -ILD Exacerbation / Scleroderma * Scleroderma recently diagnosed 05/2019 * Bilat ground glass opacities on CT chest, Procal negative. Antibiotics discontinued (doxycycline and ceftriaxone 01/20) as this is more of a fluid overload/ILD picture than infectious/pneumonia picture * s/p 6 mg Dex 01/20 --> prednisone 40 mg qd (01/21) * continue mycophenolate mofetil * duonebs [facility]UL[facility] q4h * Pulmonology consulted on 01/21, appreciate recs 2. T2DM -restart equivalent of home insulin: 20 u Lantus daily -Mild SSI -ACHS accuchecks -In setting of steroid administration, she may require more insulin 3. QT prolongation -avoid QT prolonging medication 4. HTN -continue home medications 5. Hx Gastric sleeve -aware 6. Hx Iron Deficiency Anemia -s/p multiple iron transfusions -Difficulty with po absorption after gastric sleeve placement -Hgb 12.5, MCV 90 7. CARLOS/MDD -continue home medications 8. Pulmonary HTN -as above 9. CAD s/p stent 05/2019 -continue high dose statin and plavix Dispo: will continue to monitor on tele, f/u pulm recs Addendum - Attending - Attending Attestation Date/Time: 01/22/20 4972 I personally evaluated the patient and discussed the management with Dr. Santoro. I agree with the History, Examination, Assessment and Plan documented above with any addition or exceptions noted below. The patient admitted for shortness of breath. BNP elevated but pt had a recent diagnosis of interstitial lung disease. Echo is ordered and is pending. Consulting pulmonology as well. Patient did not want to talk this morning.
[2020-01-22] MEDS: HumaLOG 300 UNITS/3 ML VIAL SC PRN ×4 (06:44→21:52)
[2020-01-22 08:17] LABS: Troponin I 0.024 ng/mL (< 0.028)
[2020-01-22] MEDS: Famotidine 20 MG TAB PO SCH ×2 (09:26→20:28)
[2020-01-22] MEDS: Mycophenolate 250 MG CAP PO SCH ×2 (09:26→20:28)
[2020-01-22] MEDS: Clopidogrel Bisulfate 75 MG TAB PO SCH (09:26)
[2020-01-22] MEDS: Furosemide 40 MG/4 ML VIAL SLOW IVP SCH (09:26)
[2020-01-22] MEDS: predniSONE 20 MG TAB PO SCH (09:27)
[2020-01-22] MEDS: Lisinopril/Hydrochlorothiazide 10 mg/12.5 mg Tablet PO SCH (09:27)
[2020-01-22] MEDS: Bupropion 150 MG SR TAB PO SCH (09:27)
[2020-01-22] MEDS: Amlodipine 5 MG TAB PO SCH (09:27)
[2020-01-22] MEDS: Famotidine/PF 20 mg/2ml Vial SLOW IVP SCH ×2 (09:28→20:29)
[2020-01-22] MEDS: Enoxaparin Sodium 40 MG/0.4 ML SYRINGE SC SCH (09:28)
[2020-01-22 17:59] LABS: Glucose 503 mg/dL (70-105)
[2020-01-22] MEDS ORDERED: Insulin Glargine 20 UNITS in Pre-Filled Syringe 1 EACH SC SCH (18:30)
--- NOTE | 2020-01-22 19:07 | CON ---
DATE OF CONSULTATION: 01/22/2020 HISTORY OF PRESENT ILLNESS: Ms. Dye is a very pleasant 49-year-old female. She has been seen by a salvage mend worker at [facility]. She has also been seen by her meteorological technician, Dr. Cantrell here in [place] and a scleroderma meteorological technician in [place]. She presents with complaints of shortness of breath. She did not want to be admitted to the hospital she says, but accepts the fact that she probably needed to be here. She already feels much better. She had viral illness symptoms for couple of days. She again says she feels better. She has had no purulent sputum or hemoptysis. PAST MEDICAL HISTORY: Remarkable for; 1. Pulmonary involvement with her scleroderma per her pulmonary doctor. 2. History of diabetes. 3. History of diabetic retinopathy. 4. History of nephrolithiasis. 5. History of coronary stenting. 6. Status post hysterectomy. 7. History of with tubal ligation. 8. History of gastric sleeve. 9. History of lithotripsy and ureteral stenting in the past. FAMILY HISTORY: Positive for heart disease, diabetes, and vascular disease. REVIEW OF SYSTEMS: Ten points otherwise negative. PHYSICAL EXAMINATION: GENERAL: She is in no distress, talking in complete sentences. VITAL SIGNS: She is afebrile. Heart rate is 89, respiratory rate is 18, oximetry is 92% on 2 L, and blood pressure 133/67. HEENT: Pupils are equal. She does not really have a scleroderma face. NECK: Supple without lymphadenopathy. LUNGS: Remarkable for very fine crackles at lung bases. HEART: Regular rhythm. ABDOMEN: Soft and nontender. EXTREMITIES: Without clubbing, cyanosis, or edema. LABORATORY DATA: White count 11.1, hemoglobin 12.4, platelets 387. Electrolytes are normal. Creatinine is normal. Glucose is 373 just before lunch. Hemoglobin A1c 6.2. IMPRESSION: Diffuse infiltrates. Since we do not have any old films, it is unclear how much of this is old and how much is new. She was initially felt to have COVID pneumonia, found to have scleroderma when she was in [place] earlier this year, I guess when her COVID workup was negative. I suspect all of her infiltrates are chronic. I have asked her to request a CT copy via disk when she leaves. There is no further workup indicated from my standpoint. Antimicrobials and her steroids can be simplified. Her meteorological technician should be consulted for guidance regarding continuation of medication. She will follow up with her pulmonary doctor at [facility]. This is a 50 min consult with greater than 50% of the time spent on the unit with coordination of care. Job ID: [id number] MTDD
[2020-01-22] MEDS: Atorvastatin Calcium 40 MG TAB PO SCH (20:29)
[2020-01-22] MEDS: Escitalopram Oxalate 20 mg Tablet PO SCH (20:29)
[2020-01-23] MEDS: Albuterol Sulfate 2.5 mg/3 ml Neb NEB SCH ×2 (02:58→07:39)
[2020-01-23 04:34] LABS: #Lymphocytes 1.8 thou/uL (1.20-3.40); #Monocytes 1.8 thou/uL (0.11-0.59); #Neutrophils 8.7 thou/uL (1.40-6.50); %Basophils 0.3 % (0.0-1.0); %Eosinophils 0.3 % (0.0-10.0); %Lymphocytes 14.6 % (21.0-51.0); %Monocytes 14.6 % (0.0-10.0); %Neutrophils 70.1 % (42.0-75.0); Hemoglobin 12.7 g/dL (12.0-16.0); Mean Corpuscular HGB CONC 30.4 g/dL (32.0-36.0); Mean Corpuscular Hemoglobin 28.3 pg (27.0-31.0); Mean Platelet Volume 7.3 fL (7.4-10.4); Platelet Count 424 thou/uL (130-400); RBC Distribution Width 14.5 % (11.5-14.5); Red Blood Cell (RBC) Count 4.47 mill/uL (4.20-5.40); White Blood Cell (WBC) Count 12.3 thou/uL (4.8-10.8)
[2020-01-23 04:57] LABS: Anion Gap 13 mmol/L (10-20); BUN (Urea Nitrogen) 27 mg/dL (7.0-18.7); Calc. Creatinine Clearance 81 mL/min (70-130); Calcium 8.7 mg/dL (7.8-10.44); Carbon Dioxide 27 mmol/L (22-29); Chloride 99 mmol/L (98-107); Estimated GFR-MDRD 62; Glucose 189 mg/dL (70-105); Potassium 3.3 mmol/L (3.5-5.1); Sodium 136 mmol/L (136-145)
[2020-01-23] MEDS: HumaLOG 300 UNITS/3 ML VIAL SC PRN ×4 (05:47→20:49)
[2020-01-23] MEDS ORDERED: Potassium Chloride 20 MEQ TAB PO SCH (06:00)
--- NOTE | 2020-01-23 07:21 | PDOC.FM ---
- Subjective Subjective: Patient resting comfortably in bed with NC in place. Denies SOB at rest, CP, or abdominal pain. Reports that she became very SOB when ambulating to the bathroom. She also reports feeling like she needs to cough up phlegm. - Objective MAR Reviewed: Yes Vital Signs & Weight: Vital Signs (12 hours) Temp Pulse Resp BP Pulse Ox 01/23/20 03:56 97.7 F 78 16 135/68 96 01/23/20 00:00 94 Weight Weight 72.257 kg I&O: 01/22/20 01/23/20 01/24/20 06:59 06:59 06:59 Intake Total 180 1200 Output Total 125 Balance 55 1200 Result Diagrams: 01/23/20 04:08 01/23/20 04:08 EKG Reviewed by me: Yes (SR) Phys Exam - Physical Examination Constitutional: NAD HEENT: moist MMs Neck: supple, full ROM Respiratory: no wheezing, no rales, clear to auscultation bilateral Cardiovascular: RRR, no significant murmur Gastrointestinal: soft, non-tender, positive bowel sounds Musculoskeletal: no edema Neurological: moves all 4 limbs Psychiatric: normal affect Skin: no rash Dx/Plan - Plan Plan: 1. Acute hypoxic Respiratory Failure 2/2 CHF vs ILD exacerbation -Hypoxic initially in ED, Satting 80s in ED. Now satting 95% on 2L BNC, not on O2 at home -Possible Acute CHF exacerbation * Covid negative * Echo 04/2019 shows LVH, normal EF 60-65% * History of pulmonary HTN per patient; No mention of this in echo 04/2019, but scleroderma is new diagnosis * BNP: 1300, s/p 40 mg IV Lasix in ED. * Echo 01/21: EF 60-65%, no mention of PAP * Strict I/O, weigh daily, fluid restrict 1800 ml/day * 40 IV lasix QAM -ILD Exacerbation / Scleroderma * Scleroderma recently diagnosed 05/2019 * Bilat ground glass opacities on CT chest, Procal negative. Antibiotics discontinued (doxycycline and ceftriaxone 01/20) as this is more of a fluid overload/ILD picture than infectious/pneumonia picture * s/p 6 mg Dex 01/20 --> prednisone 40 mg qd (01/21) * continue mycophenolate mofetil * jluis [facility] q4h * Pulmonology consulted: no further workup from a pulmonology standpoint, ritual circumciser should be consulted, f/u with pulm doctor at [facility] * will attempt to contact ritual circumciser, Dr. Cantrell * adding mucinex to help with congestion 2. T2DM -restart equivalent of home insulin: 20 u Lantus daily -Mild SSI, may require more insulin due to steroid treatment -ACHS accuchecks 3. QT prolongation -avoid QT prolonging medication 4. HTN -continue home medications 5. Hx Gastric sleeve -aware 6. Hx Iron Deficiency Anemia -s/p multiple iron transfusions -Difficulty with po absorption after gastric sleeve placement -Hgb 12.5, MCV 90 7. CARLOS/MDD -continue home medications 8. Pulmonary HTN -as above 9. CAD s/p stent 05/2019 -continue high dose statin and plavix Dispo: will continue to monitor on tele, will attempt to contact patient's ritual circumciser Addendum - Attending - Attending Attestation Date/Time: 01/23/20 0153 I personally evaluated the patient and discussed the management with Dr. Nessa ramires. I agree with the History, Examination, Assessment and Plan documented above with any addition or exceptions noted below. Patient is feeling better but not yet able to ambulate without shortness of breath. Will continue current regimen and wean O2 as able. Pt's ritual circumciser is reportedly out of town.
[2020-01-23] MEDS ORDERED: guaiFENesin ER 600 MG TAB PO PRN (08:16)
[2020-01-23] MEDS: predniSONE 20 MG TAB PO SCH (08:37)
[2020-01-23] MEDS: Insulin Glargine 20 UNITS in Pre-Filled Syringe 1 EACH SC SCH (08:37)
[2020-01-23] MEDS ORDERED: FLU VACC QS2020-21(6MOS UP)/PF 60 MCG/0.5 ML SYRINGE IM ONE (09:00)
[2020-01-23] MEDS: Mycophenolate 250 MG CAP PO SCH ×2 (09:25→20:48)
[2020-01-23] MEDS: Clopidogrel Bisulfate 75 MG TAB PO SCH (09:25)
[2020-01-23] MEDS: Amlodipine 5 MG TAB PO SCH (09:26)
[2020-01-23] MEDS: Bupropion 150 MG SR TAB PO SCH (09:27)
[2020-01-23] MEDS: Enoxaparin Sodium 40 MG/0.4 ML SYRINGE SC SCH (09:27)
[2020-01-23] MEDS: Lisinopril/Hydrochlorothiazide 10 mg/12.5 mg Tablet PO SCH (09:27)
[2020-01-23] MEDS: Furosemide 40 MG/4 ML VIAL SLOW IVP SCH (09:45)
[2020-01-23] MEDS ORDERED: Calcium Carbonate 500 MG ChewTAB PO PRN (19:44)
[2020-01-23] MEDS: Escitalopram Oxalate 20 mg Tablet PO SCH (20:48)
[2020-01-23] MEDS: Atorvastatin Calcium 40 MG TAB PO SCH (20:48)
[2020-01-23] MEDS: Famotidine 20 MG TAB PO SCH (20:48)
[2020-01-24 04:36] LABS: #Lymphocytes 2.3 thou/uL (1.20-3.40); #Monocytes 1.7 thou/uL (0.11-0.59); #Neutrophils 8.8 thou/uL (1.40-6.50); %Basophils 0.2 % (0.0-1.0); %Eosinophils 0.3 % (0.0-10.0); %Lymphocytes 17.7 % (21.0-51.0); %Monocytes 13.2 % (0.0-10.0); %Neutrophils 68.6 % (42.0-75.0); Mean Corpuscular HGB CONC 31.9 g/dL (32.0-36.0); Mean Corpuscular Hemoglobin 28.9 pg (27.0-31.0); Mean Corpuscular Volume 90.7 fL (78.0-98.0); Mean Platelet Volume 7.1 fL (7.4-10.4); Platelet Count 384 thou/uL (130-400); RBC Distribution Width 14.3 % (11.5-14.5); Red Blood Cell (RBC) Count 4.49 mill/uL (4.20-5.40); White Blood Cell (WBC) Count 12.8 thou/uL (4.8-10.8)
[2020-01-24 05:00] LABS: Anion Gap 13 mmol/L (10-20); BUN (Urea Nitrogen) 27 mg/dL (7.0-18.7); Calc. Creatinine Clearance 77 mL/min (70-130); Calcium 8.8 mg/dL (7.8-10.44); Carbon Dioxide 28 mmol/L (22-29); Chloride 98 mmol/L (98-107); Estimated GFR-MDRD 60; Glucose 124 mg/dL (70-105); Potassium 3.4 mmol/L (3.5-5.1); Sodium 136 mmol/L (136-145)
--- NOTE | 2020-01-24 05:40 | PDOC.FM ---
- Subjective Subjective: Patient is resting comfortably in bed with NC in place. Reports that she had some indigestion and heartburn overnight that improved with meds. She reports that she believes her breathing is improving. She denies any current pain. - Objective MAR Reviewed: Yes Vital Signs & Weight: Vital Signs (12 hours) Temp Pulse Resp BP Pulse Ox 01/24/20 04:40 97.8 F 77 16 112/66 98 01/24/20 01:13 98 01/24/20 00:00 83 01/23/20 19:34 98.2 F 91 18 117/77 96 01/23/20 19:02 90 16 98 Weight Weight 70.942 kg I&O: 01/22/20 01/23/20 01/24/20 06:59 06:59 06:59 Intake Total 180 1200 1720 Output Total 125 Balance 55 1200 1720 Result Diagrams: 01/24/20 04:07 01/24/20 04:07 EKG Reviewed by me: Yes (SR) Phys Exam - Physical Examination Constitutional: NAD HEENT: moist MMs Neck: supple, full ROM Respiratory: no wheezing, no rales, clear to auscultation bilateral Cardiovascular: RRR, no significant murmur Gastrointestinal: soft, non-tender, positive bowel sounds Musculoskeletal: no edema Neurological: non-focal Psychiatric: normal affect Skin: no rash Dx/Plan - Plan Plan: Acute hypoxic Respiratory Failure 2/2 CHF vs ILD exacerbation -Hypoxic initially in ED, Satting 80s in ED. Now satting 95% on 2L BNC, not on O2 at home, will likely need to be DC'd with O2 -ILD Exacerbation / Scleroderma * Scleroderma recently diagnosed 05/2019 * Bilat ground glass opacities on CT chest, Procal negative. Antibiotics discontinued (doxycycline and ceftriaxone 01/20) as this is more of a fluid overload/ILD picture than infectious/pneumonia picture * s/p 6 mg Dex 01/20 --> prednisone 40 mg qd (01/21), will likely DC with steroids and taper * continue mycophenolate mofetil * duonebs [facility] q4h * Pulmonology consulted: no further workup from a pulmonology standpoint, hydrometeorologist should be consulted, f/u with pulm doctor at [facility] * Divemaster, Dr. Cantrell, reportedly out of town, will need outpatient b/u * adding mucinex to help with congestion -Possible Acute CHF exacerbation * Covid negative * Echo 04/2019 shows LVH, normal EF 60-65% * History of pulmonary HTN per patient; No mention of this in echo 04/2019, but scleroderma is new diagnosis * BNP: 1300, s/p 40 mg IV Lasix in ED. * Echo 01/21: EF 60-65%, no mention of PAP * Strict I/O, weigh daily, fluid restrict 1800 ml/day * s/p 40 IV lasix QAM, will DC as patient appears euvolemic now T2DM -restart equivalent of home insulin: 20 u Lantus daily -Mild SSI, may require more insulin due to steroid treatment -ACHS accuchecks QT prolongation -avoid QT prolonging medication HTN -continue home medications Hx Gastric sleeve -aware Hx Iron Deficiency Anemia -s/p multiple iron transfusions -Difficulty with po absorption after gastric sleeve placement -Hgb 12.5, MCV 90 CARLOS/MDD -continue home medications Pulmonary HTN -as above CAD s/p stent 05/2019 -continue high dose statin and plavix Dispo: likely DC home today or tomorrow pending O2 requirement/home O2 Addendum - Attending - Attending Attestation Date/Time: 01/24/20 [id number] I personally evaluated the patient and discussed the management with Dr. Santoro. I agree with the History, Examination, Assessment and Plan documented above with any addition or exceptions noted below. Patient is improved. would be ok for d/c when home O2 is arranged.
[2020-01-24 06:39] LABS: Magnesium 1.8 mg/dL (1.6-2.6); Phosphorus 3.2 mg/dL (2.3-4.7)
[2020-01-24] MEDS ORDERED: Potassium Chloride 20 MEQ TAB PO SCH (07:00)
[2020-01-24] MEDS ORDERED: Magnesium 2 GM/50 ML 2 GM in Premix Bag 1 BAG IVPB SCH (07:00)
[2020-01-24] MEDS: Lisinopril/Hydrochlorothiazide 10 mg/12.5 mg Tablet PO SCH (08:42)
[2020-01-24] MEDS: Bupropion 150 MG SR TAB PO SCH (08:43)
[2020-01-24] MEDS: Famotidine 20 MG TAB PO SCH (08:43)
[2020-01-24] MEDS: Mycophenolate 250 MG CAP PO SCH ×2 (08:43→20:22)
[2020-01-24] MEDS: predniSONE 20 MG TAB PO SCH (08:44)
[2020-01-24] MEDS: Clopidogrel Bisulfate 75 MG TAB PO SCH (08:44)
[2020-01-24] MEDS: Amlodipine 5 MG TAB PO SCH (08:44)
[2020-01-24] MEDS: Insulin Glargine 20 UNITS in Pre-Filled Syringe 1 EACH SC SCH (08:45)
[2020-01-24] MEDS: Enoxaparin Sodium 40 MG/0.4 ML SYRINGE SC SCH (08:45)
[2020-01-24] MEDS: HumaLOG 300 UNITS/3 ML VIAL SC PRN ×3 (12:16→21:12)
[2020-01-24] MEDS: Escitalopram Oxalate 20 mg Tablet PO SCH (20:22)
[2020-01-24] MEDS: Atorvastatin Calcium 40 MG TAB PO SCH (20:22)
[2020-01-25 05:21] LABS: #Eosinphils 0.1 thou/uL (0.0-0.7); #Lymphocytes 1.8 thou/uL (1.20-3.40); #Monocytes 1.4 thou/uL (0.11-0.59); #Neutrophils 8.1 thou/uL (1.40-6.50); %Basophils 0.1 % (0.0-1.0); %Eosinophils 0.5 % (0.0-10.0); %Lymphocytes 15.9 % (21.0-51.0); %Monocytes 12.4 % (0.0-10.0); Hemoglobin 12.1 g/dL (12.0-16.0); Mean Corpuscular HGB CONC 31.3 g/dL (32.0-36.0); Mean Corpuscular Hemoglobin 28.7 pg (27.0-31.0); Mean Corpuscular Volume 91.8 fL (78.0-98.0); Platelet Count 417 thou/uL (130-400); RBC Distribution Width 14.5 % (11.5-14.5); Red Blood Cell (RBC) Count 4.21 mill/uL (4.20-5.40); White Blood Cell (WBC) Count 11.3 thou/uL (4.8-10.8)
--- NOTE | 2020-01-25 05:36 | PDOC.FM ---
- Subjective Subjective: Pt resting comfortably. Has been having some nausea. She says she is normally on dexilant at home and in the hospital she is on protonix. Satting well on 2L - Objective Vital Signs & Weight: Vital Signs (12 hours) Temp Pulse Resp BP Pulse Ox 01/25/20 03:19 97.6 F 77 20 96/52 L 96 01/25/20 01:42 98 01/24/20 20:00 97.4 F L 83 14 95/49 L 98 01/24/20 19:22 86 18 94 L Weight Weight 72.439 kg I&O: 01/23/20 01/24/20 01/25/20 06:59 06:59 06:59 Intake Total 1200 1720 1000 Output Total 500 Balance 1200 1720 500 Result Diagrams: 01/25/20 04:21 01/25/20 04:21 Phys Exam - Physical Examination Constitutional: NAD Neck: supple, full ROM Respiratory: no wheezing, clear to auscultation bilateral Cardiovascular: RRR, no significant murmur Gastrointestinal: soft, non-tender, no distention Musculoskeletal: no edema Neurological: non-focal Psychiatric: A&O x 3 Dx/Plan - Plan Plan: Acute hypoxic Respiratory Failure 2/2 CHF vs ILD exacerbation -Hypoxic initially in ED, Satting 80s in ED. Now satting 95% on 2L BNC, not on O2 at home, will likely need to be DC'd with O2 -ILD Exacerbation / Scleroderma * Scleroderma recently diagnosed 05/2019 * Bilat ground glass opacities on CT chest, Procal negative. Antibiotics discontinued (doxycycline and ceftriaxone 01/20) as this is more of a fluid overload/ILD picture than infectious/pneumonia picture * s/p 6 mg Dex 01/20 --> prednisone 40 mg qd (01/21), will likely DC with steroids and taper * [facility]il [facility] * Pulmonology consulted: no further workup from a pulmonology standpoint, public works commissioner should be consulted, f/u with pulm doctor at [facility] * [employer], Dr. Cantrell, reportedly out of town, will need outpatient f/u * adding mucinex to help with congestion -Possible Acute CHF exacerbation * Covid negative * Echo 04/2019 shows LVH, normal EF 60-65% * History of pulmonary HTN per patient; No mention of this in echo 04/2019, but scleroderma is new diagnosis * BNP: 1300, s/p 40 mg IV Lasix in ED. * Echo 01/21: EF 60-65%, no mention of PAP * Strict I/O, weigh daily, fluid restrict 1800 ml/day * s/p 40 IV lasix QAM, will DC as patient appears euvolemic now T2DM -restart equivalent of home insulin: 20 u Lantus daily -Mild SSI, may require more insulin due to steroid treatment -ACHS accuchecks QT prolongation -avoid QT prolonging medication HTN -continue home medications Hx Gastric sleeve -aware Hx Iron Deficiency Anemia -s/p multiple iron transfusions -Difficulty with po absorption after gastric sleeve placement -Hgb 12.5, MCV 90 CARLOS/MDD -continue home medications Pulmonary HTN -as above CAD s/p stent 05/2019 -continue high dose statin and plavix Dispo: stable, likely DC home today or tomorrow pending O2 requirement/home O2
[2020-01-25 05:43] LABS: Anion Gap 13 mmol/L (10-20); BUN (Urea Nitrogen) 28 mg/dL (7.0-18.7); Calc. Creatinine Clearance 86 mL/min (70-130); Calcium 8.8 mg/dL (7.8-10.44); Carbon Dioxide 26 mmol/L (22-29); Chloride 100 mmol/L (98-107); Estimated GFR-MDRD 66; Glucose 179 mg/dL (70-105); Potassium 3.9 mmol/L (3.5-5.1); Sodium 135 mmol/L (136-145)
[2020-01-25] MEDS: HumaLOG 300 UNITS/3 ML VIAL SC PRN ×4 (06:21→21:50)
[2020-01-25] MEDS: Clopidogrel Bisulfate 75 MG TAB PO SCH (09:55)
[2020-01-25] MEDS: Mycophenolate 250 MG CAP PO SCH ×2 (09:55→21:50)
[2020-01-25] MEDS: Amlodipine 5 MG TAB PO SCH (09:55)
[2020-01-25] MEDS: predniSONE 20 MG TAB PO SCH (09:55)
[2020-01-25] MEDS: Insulin Glargine 20 UNITS in Pre-Filled Syringe 1 EACH SC SCH (09:56)
[2020-01-25] MEDS: Enoxaparin Sodium 40 MG/0.4 ML SYRINGE SC SCH (09:56)
[2020-01-25] MEDS: Bupropion 150 MG SR TAB PO SCH (10:01)
[2020-01-25] MEDS: Lisinopril/Hydrochlorothiazide 10 mg/12.5 mg Tablet PO SCH (11:04)
--- NOTE | 2020-01-25 12:20 | PRG ---
DATE OF SERVICE: 01/25/2020 Please see the note from Dr. Mckenna, for which I agree. The patient was seen, evaluated, discussed, and examined with the residents by bedside. The patient likely being discharged today diastolic congestive heart failure exacerbation and scleroderma causing pulmonary issues. We will need oxygen at home as her level is but she is definitely stable today. On exam, lungs are little decreased breath sounds, but not bad. Otherwise, exam is fairly normal. We will obviously follow up closely with screen repairer crusher and pulmonology. Job ID: [id number]
[2020-01-25] MEDS: Atorvastatin Calcium 40 MG TAB PO SCH (21:50)
[2020-01-25] MEDS: Escitalopram Oxalate 20 mg Tablet PO SCH (21:50)
[2020-01-26 05:08] LABS: Anion Gap 13 mmol/L (10-20); BUN (Urea Nitrogen) 24 mg/dL (7.0-18.7); Calc. Creatinine Clearance 88 mL/min (70-130); Calcium 8.6 mg/dL (7.8-10.44); Carbon Dioxide 26 mmol/L (22-29); Chloride 100 mmol/L (98-107); Estimated GFR-MDRD 68; Glucose 124 mg/dL (70-105); Potassium 3.9 mmol/L (3.5-5.1); Sodium 135 mmol/L (136-145)
--- NOTE | 2020-01-26 05:38 | PDOC.FM ---
- Subjective Subjective: Pt states that she slept well last night. She is satting 99% on 2L NC when laying in bed, but she says when she gets up and moves around her sats drop. She took a shower yesterday without using her oxygen and said she got a terrible headache. She is apprehensive about going home on oxygen but feels confident in her outpatient care. - Objective Vital Signs & Weight: Vital Signs (12 hours) Temp Pulse Resp BP Pulse Ox 01/26/20 01:22 99 01/25/20 20:00 99 01/25/20 19:14 98.7 F 81 16 126/51 L 99 01/25/20 19:03 81 16 99 Weight Weight 72.439 kg I&O: 01/24/20 01/25/20 01/26/20 06:59 06:59 06:59 Intake Total 1720 1000 500 Output Total 500 Balance 1720 500 500 Result Diagrams: 01/25/20 04:21 01/26/20 03:59 Phys Exam - Physical Examination Constitutional: NAD Neck: supple, full ROM Respiratory: no wheezing, clear to auscultation bilateral Cardiovascular: RRR, no significant murmur Gastrointestinal: soft, non-tender, no distention Musculoskeletal: no edema Neurological: non-focal, moves all 4 limbs Psychiatric: normal affect, A&O x 3 Skin: no rash Dx/Plan - Plan Plan: Acute hypoxic Respiratory Failure 2/2 CHF vs ILD exacerbation -Hypoxic initially in ED, Satting 80s in ED. Now satting 95% on 2L BNC, not on O2 at home, will likely need to be DC'd with O2 -ILD Exacerbation / Scleroderma * Scleroderma recently diagnosed 05/2019 * Bilat ground glass opacities on CT chest, Procal negative. Antibiotics discontinued (doxycycline and ceftriaxone 01/20) as this is more of a fluid overload/ILD picture than infectious/pneumonia picture * s/p 6 mg Dex 01/20 --> prednisone 40 mg qd (01/21), will likely DC with steroids and taper * continue mycophenolate mofetil * [facility] * Pulmonology consulted: no further workup from a pulmonology standpoint, service observer chief should be consulted, f/u with pulm doctor at [facility] * Contract Officer, Dr. Cantrell, reportedly out of town, will need outpatient f/u * adding mucinex to help with congestion -Possible Acute CHF exacerbation * Covid negative * Echo 04/2019 shows LVH, normal EF 60-65% * History of pulmonary HTN per patient; No mention of this in echo 04/2019, but scleroderma is new diagnosis * BNP: 1300, s/p 40 mg IV Lasix in ED. * Echo 01/21: EF 60-65%, no mention of PAP * Strict I/O, weigh daily, fluid restrict 1800 ml/day * s/p 40 IV lasix QAM, will DC as patient appears euvolemic now T2DM -restart equivalent of home insulin: 20 u Lantus daily -Mild SSI, may require more insulin due to steroid treatment -ACHS accuchecks QT prolongation -avoid QT prolonging medication HTN -continue home medications Hx Gastric sleeve -aware Hx Iron Deficiency Anemia -s/p multiple iron transfusions -Difficulty with po absorption after gastric sleeve placement -Hgb 12.5, MCV 90 CARLOS/MDD -continue home medications Pulmonary HTN -as above CAD s/p stent 05/2019 -continue high dose statin and plavix Dispo: stable, likely DC on Monday per CM, pending home O2.
[2020-01-26] MEDS: Mycophenolate 250 MG CAP PO SCH ×2 (08:33→21:05)
[2020-01-26] MEDS: Amlodipine 5 MG TAB PO SCH (08:33)
[2020-01-26] MEDS: Clopidogrel Bisulfate 75 MG TAB PO SCH (08:33)
[2020-01-26] MEDS: predniSONE 20 MG TAB PO SCH (08:34)
[2020-01-26] MEDS: Lisinopril/Hydrochlorothiazide 10 mg/12.5 mg Tablet PO SCH (08:34)
[2020-01-26] MEDS: Enoxaparin Sodium 40 MG/0.4 ML SYRINGE SC SCH (08:35)
[2020-01-26] MEDS: Bupropion 150 MG SR TAB PO SCH (08:35)
[2020-01-26] MEDS: Insulin Glargine 20 UNITS in Pre-Filled Syringe 1 EACH SC SCH (09:09)
--- NOTE | 2020-01-26 11:52 | PRG ---
DATE OF SERVICE: 01/26/2020 Please see the note from Dr. Ariadna Mckenna, for which I agree. The patient was seen, evaluated, discussed, and examined with the residents by bedside. Basically, no major change. We are just waiting on getting her a home oxygen set up. It sounds like that will not happen until tomorrow. Echocardiogram showed diastolic dysfunction, mild LVH. Her BNP was elevated, which came in with certainly as volume overloaded and so I think, we should try put her on just a low-dose Lasix p.o. daily in addition to her other medicines and is to follow up this week to see her probate paralegal and wholesaler and will wear continuous oxygen in the meantime. Job ID: [id number]
[2020-01-26] MEDS: HumaLOG 300 UNITS/3 ML VIAL SC PRN ×3 (13:05→22:03)
[2020-01-26] MEDS: Escitalopram Oxalate 20 mg Tablet PO SCH (21:06)
[2020-01-26] MEDS: Atorvastatin Calcium 40 MG TAB PO SCH (21:06)
[2020-01-26] MEDS ORDERED: HumaLOG 300 UNITS/3 ML VIAL SC SCH (21:30)
--- NOTE | 2020-01-27 05:58 | PDOC.FM ---
- Subjective Subjective: Patient is resting comfortably in bed. No acute concerns, no events overnight. Denies chest pain, shortness of breath, abdominal pain. - Objective MAR Reviewed: Yes Vital Signs & Weight: Vital Signs (12 hours) Temp Pulse Resp BP Pulse Ox 01/27/20 00:15 94 100 01/26/20 21:00 98.2 F 90 18 114/58 L 98 01/26/20 18:54 83 16 91 L Weight Weight 72.575 kg I&O: 01/25/20 01/26/20 01/27/20 06:59 06:59 06:59 Intake Total 1000 700 720 Output Total 500 200 800 Balance 500 500 -80 Result Diagrams: 01/25/20 04:21 01/26/20 03:59 Phys Exam - Physical Examination Constitutional: NAD HEENT: PERRLA Respiratory: no wheezing, clear to auscultation bilateral Cardiovascular: RRR, no significant murmur Gastrointestinal: soft, non-tender, positive bowel sounds Musculoskeletal: no edema Neurological: non-focal Psychiatric: normal affect, A&O x 3 Skin: no rash Dx/Plan - Plan Plan: Acute hypoxic Respiratory Failure 2/2 CHF vs ILD exacerbation -Hypoxic initially in ED, Satting 80s in ED. Now satting 100% on 2L NC, not on O2 at home, will likely need to be DC'd with O2 -ILD Exacerbation / Scleroderma * Scleroderma recently diagnosed 05/2019 * Bilat ground glass opacities on CT chest, Procal negative. Antibiotics discontinued (doxycycline and ceftriaxone 01/20) as this is more of a fluid overload/ILD picture than infectious/pneumonia picture * s/p 6 mg Dex 01/20 --> prednisone 40 mg qd (01/21-01/25) * continue mycophenolate mofetil * duonebs JULIO q4h * Pulmonology consulted: no further workup from a pulmonology standpoint, team driver should be consulted, f/u with pulm doctor at [facility] * 3D Specialist, Dr. Cantrell, reportedly out of town, will need outpatient f/u * added mucinex to help with congestion -Possible Acute CHF exacerbation * Covid negative * Echo 04/2019 shows LVH, normal EF 60-65% * History of pulmonary HTN per patient; No mention of this in echo 04/2019, but scleroderma is new diagnosis * BNP: 1300, s/p 40 mg IV Lasix in ED. * Echo 01/21: EF 60-65%, no mention of PAP * Strict I/O, weigh daily, fluid restrict 1800 ml/day * s/p 40 IV lasix QAM, now on 20mg PO lasix - will have this as new home medication T2DM -restart equivalent of home insulin: 20 u Lantus daily --> increased to 25 u -Mild SSI, may require more insulin due to steroid treatment -ACHS accuchecks QT prolongation -avoid QT prolonging medication HTN -continue home medications Hx Gastric sleeve -aware Hx Iron Deficiency Anemia -s/p multiple iron transfusions -Difficulty with po absorption after gastric sleeve placement -Hgb 12.5, MCV 90 CARLOS/MDD -continue home medications Pulmonary HTN -as above CAD s/p stent 05/2019 -continue high dose statin and plavix Dispo: stable, likely DC on today per CM, pending home O2.
[2020-01-27] MEDS: Lisinopril/Hydrochlorothiazide 10 mg/12.5 mg Tablet PO SCH (09:34)
[2020-01-27] MEDS: Enoxaparin Sodium 40 MG/0.4 ML SYRINGE SC SCH (09:37)
[2020-01-27] MEDS: Amlodipine 5 MG TAB PO SCH (09:37)
[2020-01-27] MEDS: Furosemide 20 MG TAB PO SCH (09:38)
[2020-01-27] MEDS: Mycophenolate 250 MG CAP PO SCH ×2 (09:38→20:54)
[2020-01-27] MEDS: Bupropion 150 MG SR TAB PO SCH (09:39)
[2020-01-27] MEDS: Acetaminophen 325 MG TAB PO PRN (09:39)
[2020-01-27] MEDS: Clopidogrel Bisulfate 75 MG TAB PO SCH (09:39)
--- NOTE | 2020-01-27 11:06 | PRG ---
DATE OF SERVICE: 01/27/2020 Ms. Dye is a very pleasant 49-year-old lady who was recently found to have scleroderma. She also has what sounds like a previous history of ABIMBOLA with a resultant cor pulmonale. This is in addition to the interstitial lung disease from her scleroderma. In the event, she was admitted with acute hypoxic respiratory failure and was found to be also COVID negative. In the event clinically, she has greatly improved with medical management and is ready for discharge and/or placement. Job ID: [id number]
[2020-01-27] MEDS: HumaLOG 300 UNITS/3 ML VIAL SC PRN ×3 (12:05→21:28)
[2020-01-27] MEDS: Insulin Glargine 25 UNITS in Pre-Filled Syringe 1 EACH SC SCH (12:06)
[2020-01-27] MEDS: Escitalopram Oxalate 20 mg Tablet PO SCH (20:54)
[2020-01-27] MEDS: Atorvastatin Calcium 40 MG TAB PO SCH (20:54)
--- NOTE | 2020-01-28 06:16 | PDOC.FM ---
- Subjective Subjective: Patient is resting comfortably in bed. No acute events overnight. Notes some mild congestion, but otherwise no complaints. Denies increased shortness of breath, chest pain. - Objective MAR Reviewed: Yes Vital Signs & Weight: Vital Signs (12 hours) Temp Pulse Resp BP Pulse Ox 01/28/20 04:00 97.9 F 77 18 110/68 97 01/27/20 19:55 98 01/27/20 19:54 98.4 F 84 18 103/58 L 98 01/27/20 18:34 88 16 98 Weight Weight 72.167 kg I&O: 01/26/20 01/27/20 01/28/20 06:59 06:59 06:59 Intake Total 943 836 0611 Output Total 200 1550 200 Balance 500 -590 1120 Result Diagrams: 01/25/20 04:21 01/26/20 03:59 Phys Exam - Physical Examination Constitutional: NAD HEENT: PERRLA, moist MMs Respiratory: no wheezing, clear to auscultation bilateral Cardiovascular: RRR, no significant murmur Gastrointestinal: soft, non-tender Musculoskeletal: no edema Neurological: non-focal Psychiatric: normal affect, A&O x 3 Dx/Plan - Plan Plan: Acute hypoxic Respiratory Failure 2/2 CHF vs ILD exacerbation -Hypoxic initially in ED, Satting 80s in ED. Now satting 100% on 2L NC, not on O2 at home, will likely need to be DC'd with O2 -ILD Exacerbation / Scleroderma * Scleroderma recently diagnosed 05/2019 * Bilat ground glass opacities on CT chest, Procal negative. Antibiotics discontinued (doxycycline and ceftriaxone 01/20) as this is more of a fluid overload/ILD picture than infectious/pneumonia picture * s/p 6 mg Dex 01/20 --> prednisone 40 mg qd (01/21-01/25) * continue mycophenolate mofetil * duonebs JULIO q4h * Pulmonology consulted: no further workup from a pulmonology standpoint, network communications engineer should be consulted, f/u with pulm doctor at [facility] * Loader Engineer, Dr. Cantrell, reportedly out of town, will need outpatient f/u * mucinex to help with congestion -Possible Acute CHF exacerbation * Covid negative * Echo 04/2019 shows LVH, normal EF 60-65% * History of pulmonary HTN per patient; No mention of this in echo 04/2019, but scleroderma is new diagnosis * BNP: 1300, s/p 40 mg IV Lasix in ED. * Echo 01/21: EF 60-65%, no mention of PAP * Strict I/O, weigh daily, fluid restrict 1800 ml/day * s/p 40 IV lasix QAM, now on 20mg PO lasix - will have this as new home medication T2DM -restart equivalent of home insulin: 20 u Lantus daily --> increased to 25 u -Mild SSI, may require more insulin due to steroid treatment -ACHS accuchecks QT prolongation -avoid QT prolonging medication HTN -continue home medications Hx Gastric sleeve -aware Hx Iron Deficiency Anemia -s/p multiple iron transfusions -Difficulty with po absorption after gastric sleeve placement -Hgb 12.5, MCV 90 CARLOS/MDD -continue home medications Pulmonary HTN -as above CAD s/p stent 05/2019 -continue high dose statin and plavix Dispo: stable, likely DC today per CM, pending home O2. Addendum - Attending - Attending Attestation Date/Time: 01/28/20 1024 I personally evaluated the patient and discussed the management with Dr. Alvarado. I agree with the History, Examination, Assessment and Plan documented above with any addition or exceptions noted below. NO fever/chills. No changes to skin or nails. Overall reassuring exam and she feels improved. Home o2 and has follow up established.
[2020-01-28] MEDS: HumaLOG 300 UNITS/3 ML VIAL SC PRN ×2 (06:32→11:39)
[2020-01-28] MEDS: Insulin Glargine 25 UNITS in Pre-Filled Syringe 1 EACH SC SCH (08:15)
[2020-01-28] MEDS: Lisinopril/Hydrochlorothiazide 10 mg/12.5 mg Tablet PO SCH (08:16)
[2020-01-28] MEDS: Mycophenolate 250 MG CAP PO SCH (08:16)
[2020-01-28] MEDS: Bupropion 150 MG SR TAB PO SCH (08:17)
[2020-01-28] MEDS: Enoxaparin Sodium 40 MG/0.4 ML SYRINGE SC SCH (08:17)
[2020-01-28] MEDS: Clopidogrel Bisulfate 75 MG TAB PO SCH (08:17)
[2020-01-28] MEDS: Furosemide 20 MG TAB PO SCH (08:17)
[2020-01-28] MEDS: Amlodipine 5 MG TAB PO SCH (08:18)
[2020-01-28 15:23] VITALS: BP 97/65; TEMP 98.5
--- NOTE | 2020-01-29 06:24 | DIS ---
DATE OF ADMISSION: 01/21/2020 DATE OF DISCHARGE: 01/29/2020 RESIDENT: Jennifer Alvarado DO ADMITTING ATTENDING: Nanci Gupta MD DISCHARGE ATTENDING: Forrest Gee MD CONSULTS: Daniel James MD, pulmonology. PROCEDURES: None. PRIMARY DIAGNOSIS: Acute hypoxic respiratory failure, 2/2 interstitial lung disease exacerbation. SECONDARY DIAGNOSES: HFpEF, Type 2 diabetes, QT prolongation, hypertension, history of gastric sleeve, history of iron deficiency anemia, generalized anxiety disorder/major depressive disorder, pulmonary hypertension, coronary artery disease, status post stent. DISCHARGE MEDICATIONS: 1. Amlodipine 2.5 mg p.o. daily. 2. Atorvastatin calcium 80 mg p.o. every night. 3. Bupropion Hydrochloride 150 mg daily. 4. Clopidogrel bisulfate 75 mg p.o. daily. 5. Escitalopram oxalate 20 mg p.o. q.p.m. 6. Lisinopril and hydrochlorothiazide 10 mg/12.5 mg tablet, one tablet p.o. daily. 7. Metoprolol succinate 25 mg p.o. daily. 8. Mycophenolate mofetil 1000 mg p.o. b.i.d. 9. Dexlansoprazole 60 mg p.o. daily. 10. Insulin degludec/liraglutide 20 units subcu q.p.m. 11. Furosemide 20 mg p.o. daily for 30 days. DISCONTINUED MEDICATIONS: None. HISTORY OF PRESENT ILLNESS/HOSPITAL COURSE: The patient is a 49-year-old female with past medical history of interstitial lung disease, 2/2 scleroderma recently diagnosed in May 2019, type 2 diabetes, anemia, CAD/MDD, pulmonary hypertension, who presented to the ED with shortness of breath. On admission, patient was hypoxic requiring oxygen. CTA showed bilateral ground-glass opacities, 2/2 pulmonary edema versus bilateral pneumonia, bilateral pleural effusion, and small pericardial effusion. Antibiotics started in the ED were discontinued and the patient was worked up for acute hypoxic respiratory failure secondary to CHF versus ILD exacerbation. She was diuresed with Lasix and started on prednisone and DuoNebs. Echo was ordered, which showed an EF of 60% to 65% with diastolic dysfunction not documented on previous echo 04/2019. Pulmonary was consulted who recommended no further workup and follow up with her outpatient senior clinical consultant and pulmonary doctor. Patient called to set up appointment before discharge. During her stay it was established with walking O2 tests that the patient required oxygen with walking. The patient was set up for home oxygen, and was discharged on a new medication - lasix, with follow up with her specialists. DISPOSITION: Stable. DISCHARGE INSTRUCTIONS: Location: Home. Diet: Regular. Activity: Ad rakesh. Followup: Follow up with your senior clinical consultant and your parcel wrapper in the next 14 days. Follow up with your PCP in 7-14 days. Job ID: [id number]
== END 2020-01-28 17:45 | disposition home or self-care (01) | DRG 196 ==
LOC: ERS 13:31 → OBSVTOIN 17:02 → 2NO 17:02 → INTOOBSV 17:02 → 2NO 22:15
PROVIDERS: ADMIT Student in an Organized Health Care Education/Training Program; ATTEND Student in an Organized Health Care Education/Training Program
DX: J84.9 Interstitial pulmonary disease, unspecified (principal); J96.01 Acute respiratory failure with hypoxia; I50.31 Acute diastolic (congestive) heart failure; M34.81 Systemic sclerosis with lung involvement; I11.0 Hypertensive heart disease with heart failure; Z20.828 Contact with and (suspected) exposure to other viral communicable diseases; I27.20 Pulmonary hypertension, unspecified; E11.9 Type 2 diabetes mellitus without complications; F32.9 Major depressive disorder, single episode, unspecified; F41.9 Anxiety disorder, unspecified; I25.10 Atherosclerotic heart disease of native coronary artery without angina pectoris; R94.31 Abnormal electrocardiogram [ECG] [EKG]; Z79.02 Long term (current) use of antithrombotics/antiplatelets; Z95.5 Presence of coronary angioplasty implant and graft; Z90.710 Acquired absence of both cervix and uterus; Z98.51 Tubal ligation status; Z98.84 Bariatric surgery status; Z87.891 Personal history of nicotine dependence
CPT/HCPCS: 36415; 36416; 71045; 71275; 80048; 80053; 81003; 83036; 83605; 83735; 83880; 84100; 84145; 84484; 85025; 87040; 87086; 87635; 87804; 90471; 90662; 93005; 93306; 94640; 94664; 94760; 96365; 96375; G0008; J0696; J1100; J1650; J1815; J1940; J2405; J3475; J7512; J7517; J7611; J7620; Q9967; U0003

== ENCOUNTER 2020-06-27 18:01 | Emergency (ER) | payer BC, SELFPAY ==
[2020-06-27] MEDS ORDERED: Dexamethasone 4 mg/ml Vial ONE ×2 (18:47→19:03)
[2020-06-27 19:25] LABS: #Basophils 0.1 thou/uL (0.0-0.2); #Eosinphils 0.1 thou/uL (0.0-0.7); #Lymphocytes 1.9 thou/uL (1.20-3.40); #Monocytes 1.1 thou/uL (0.11-0.59); #Neutrophils 9.2 thou/uL (1.40-6.50); %Basophils 0.4 % (0.0-1.0); %Eosinophils 0.7 % (0.0-10.0); %Lymphocytes 15.3 % (21.0-51.0); %Monocytes 8.7 % (0.0-10.0); %Neutrophils 74.8 % (42.0-75.0); Mean Corpuscular HGB CONC 31.8 g/dL (32.0-36.0); Mean Corpuscular Hemoglobin 30.2 pg (27.0-31.0); Mean Corpuscular Volume 95.1 fL (78.0-98.0); Mean Platelet Volume 6.6 fL (7.4-10.4); Platelet Count 338 thou/uL (130-400); RBC Distribution Width 16.5 % (11.5-14.5); Red Blood Cell (RBC) Count 3.97 mill/uL (4.20-5.40); White Blood Cell (WBC) Count 12.4 thou/uL (4.8-10.8)
[2020-06-27 20:22] LABS: ALT (SGPT) 18 U/L (8-55); AST (SGOT) 17 U/L (5-34); Albumin 3.1 g/dL (3.5-5.0); Alkaline Phosphatase 97 U/L (40-110); Anion Gap 14 mmol/L (10-20); BUN (Urea Nitrogen) 16 mg/dL (7.0-18.7); Bilirubin, Total 0.3 mg/dL (0.2-1.2); Calc. Creatinine Clearance 0 mL/min (70-130); Calcium 8.7 mg/dL (7.8-10.44); Carbon Dioxide 25 mmol/L (22-29); Chloride 102 mmol/L (98-107); Globulin 3.2 g/dL (2.4-3.5); Glucose 116 mg/dL (70-105); Potassium 3.7 mmol/L (3.5-5.1); Protein, Total 6.3 g/dL (6.0-8.3); Sodium 137 mmol/L (136-145)
[2020-06-27] MEDS ORDERED: Ketorolac Tromethamine 30 MG/ML VIAL ONE (21:26)
== END 2020-06-27 21:30 | disposition home or self-care (01) ==
LOC: ERS 18:01
DX: U07.1 COVID-19 (principal); E11.9 Type 2 diabetes mellitus without complications; Z79.4 Long term (current) use of insulin; Z87.442 Personal history of urinary calculi; Z79.899 Other long term (current) drug therapy
CPT/HCPCS: 71045; 80053; 84484; 85025; 93005; 96374; 96375; J1100; J1885

== ENCOUNTER 2020-07-09 20:46 | Emergency (ER) | payer BC ==
[2020-07-09 21:42] LABS: #Basophils 0.1 thou/uL (0.0-0.2); #Eosinphils 0.1 thou/uL (0.0-0.7); #Lymphocytes 1.9 thou/uL (1.20-3.40); #Monocytes 0.8 thou/uL (0.11-0.59); #Neutrophils 10.4 thou/uL (1.40-6.50); %Basophils 0.5 % (0.0-1.0); %Lymphocytes 14.5 % (21.0-51.0); %Monocytes 6.1 % (0.0-10.0); %Neutrophils 77.9 % (42.0-75.0); Hemoglobin 13.3 g/dL (12.0-16.0); Mean Corpuscular HGB CONC 32.6 g/dL (32.0-36.0); Mean Corpuscular Hemoglobin 31.6 pg (27.0-31.0); Mean Corpuscular Volume 96.8 fL (78.0-98.0); Mean Platelet Volume 7.4 fL (7.4-10.4); Platelet Count 342 thou/uL (130-400); RBC Distribution Width 16.4 % (11.5-14.5); White Blood Cell (WBC) Count 13.3 thou/uL (4.8-10.8)
[2020-07-09 21:59] LABS: ALT (SGPT) 16 U/L (8-55); AST (SGOT) 15 U/L (5-34); Albumin 3.1 g/dL (3.5-5.0); Alkaline Phosphatase 92 U/L (40-110); Anion Gap 15 mmol/L (10-20); BUN (Urea Nitrogen) 20 mg/dL (7.0-18.7); Bilirubin, Total 0.2 mg/dL (0.2-1.2); Calc. Creatinine Clearance 0 mL/min (70-130); Calcium 8.6 mg/dL (7.8-10.44); Carbon Dioxide 24 mmol/L (22-29); Chloride 103 mmol/L (98-107); Glucose 94 mg/dL (70-105); Potassium 3.5 mmol/L (3.5-5.1); Protein, Total 6.1 g/dL (6.0-8.3); Sodium 138 mmol/L (136-145)
== END 2020-07-09 23:10 | disposition home or self-care (01) ==
LOC: ERS 20:46
DX: J18.9 Pneumonia, unspecified organism (principal); E11.9 Type 2 diabetes mellitus without complications; Z79.899 Other long term (current) drug therapy
CPT/HCPCS: 36415; 71045; 71275; 80053; 83880; 84484; 85025; 93005; 94760; Q9967

== ENCOUNTER 2020-07-26 22:12 | Emergency (ER) | payer BC ==
[2020-07-26] MEDS ORDERED: Promethazine HCl 25 MG/ML VIAL ONE (23:12)
[2020-07-26 23:48] LABS: #Eosinphils 0.1 thou/uL (0.0-0.7); #Lymphocytes 1.1 thou/uL (1.20-3.40); #Monocytes 0.8 thou/uL (0.11-0.59); #Neutrophils 11.7 thou/uL (1.40-6.50); %Eosinophils 0.6 % (0.0-10.0); %Lymphocytes 7.7 % (21.0-51.0); %Monocytes 5.7 % (0.0-10.0); %Neutrophils 85.9 % (42.0-75.0); Hemoglobin 12.5 g/dL (12.0-16.0); Mean Corpuscular HGB CONC 33.8 g/dL (32.0-36.0); Mean Corpuscular Hemoglobin 32.8 pg (27.0-31.0); Mean Corpuscular Volume 97.2 fL (78.0-98.0); Mean Platelet Volume 7.1 fL (7.4-10.4); Platelet Count 226 thou/uL (130-400); RBC Distribution Width 15.2 % (11.5-14.5); White Blood Cell (WBC) Count 13.6 thou/uL (4.8-10.8)
[2020-07-27 00:13] LABS: ALT (SGPT) 14 U/L (8-55); AST (SGOT) 13 U/L (5-34); Albumin 2.8 g/dL (3.5-5.0); Alkaline Phosphatase 87 U/L (40-110); Anion Gap 10 mmol/L (10-20); BUN (Urea Nitrogen) 9 mg/dL (7.0-18.7); Bilirubin, Total 0.3 mg/dL (0.2-1.2); Calc. Creatinine Clearance 0 mL/min (70-130); Calcium 8.3 mg/dL (7.8-10.44); Carbon Dioxide 27 mmol/L (22-29); Chloride 103 mmol/L (98-107); Globulin 2.6 g/dL (2.4-3.5); Glucose 121 mg/dL (70-105); Lipase Less than 4 U/L (8-78); Potassium 3.2 mmol/L (3.5-5.1); Protein, Total 5.4 g/dL (6.0-8.3); Sodium 137 mmol/L (136-145)
[2020-07-27 00:59] LABS: Bilirubin Negative (Negative); Blood, Urine Trace (Negative); Clarity Clear (Clear); Glucose, Urine (Dipstick) Normal (Negative); Ketone, Urine Negative (Negative); Leukocyte 250 Leu/uL (Negative); Nitrite Negative (Negative); Protein, Urine (Dipstick) Negative (Neg-Trace); RBC/HPF 0-3 HPF (0-3); Specific Gravity, Urine 1.003 (1.002-1.036); Urobilinogen Normal mg/dL (Less than 2)
[2020-07-27 01:00] LABS: Bacteria/HPF 1+ HPF (None Seen)
[2020-07-27] MEDS ORDERED: Promethazine HCl 25 MG/ML VIAL ONE (01:28)
== END 2020-07-27 03:20 | disposition home or self-care (01) ==
LOC: ERS 22:12
DX: R11.2 Nausea with vomiting, unspecified (principal); R19.7 Diarrhea, unspecified; E11.9 Type 2 diabetes mellitus without complications; Z79.899 Other long term (current) drug therapy
CPT/HCPCS: 36415; 71045; 80053; 81003; 81015; 83690; 84484; 85025; 93005; 96365; 96366; 96372; J0500; J2550

== ENCOUNTER 2020-08-12 17:10 | Emergency (ER) | payer BC, SELFPAY ==
[2020-08-12] MEDS ORDERED: Morphine 4 MG/ML VIAL ONE (19:28)
[2020-08-12] MEDS ORDERED: Ketorolac Tromethamine 30 MG/ML VIAL ONE (19:28)
== END 2020-08-12 23:40 | disposition home or self-care (01) ==
LOC: ERS 17:10
DX: M51.26 Other intervertebral disc displacement, lumbar region (principal); M48.061 Spinal stenosis, lumbar region without neurogenic claudication; E11.9 Type 2 diabetes mellitus without complications; Z79.899 Other long term (current) drug therapy
CPT/HCPCS: 72131; 72192; 96372; J1885; J2270

== ENCOUNTER 2021-05-31 13:48 | Inpatient (IN) | payer BC, OTHER, SELFPAY ==
[2021-05-31] MEDS ORDERED: Cefepime 2 GM VIAL ONE (14:35)
[2021-05-31 14:41] LABS: #Lymphocytes 1.3 thou/uL (1.20-3.40); #Neutrophils 11.8 thou/uL (1.40-6.50); %Basophils 0.1 % (0.0-1.0); %Eosinophils 0.3 % (0.0-10.0); %Lymphocytes 9.1 % (21.0-51.0); %Monocytes 6.8 % (0.0-10.0); %Neutrophils 83.6 % (42.0-75.0); Hemoglobin 14.1 g/dL (12.0-16.0); Mean Corpuscular HGB CONC 30.6 g/dL (32.0-36.0); Mean Corpuscular Hemoglobin 30.4 pg (27.0-31.0); Mean Corpuscular Volume 99.4 fL (78.0-98.0); Mean Platelet Volume 7.6 fL (7.4-10.4); Platelet Count 290 thou/uL (130-400); RBC Distribution Width 13.5 % (11.5-14.5); Red Blood Cell (RBC) Count 4.64 mill/uL (4.20-5.40); White Blood Cell (WBC) Count 14.1 thou/uL (4.8-10.8)
[2021-05-31 15:02] LABS: ALT (SGPT) 14 U/L (8-55); AST (SGOT) 19 U/L (5-34); Albumin 3.1 g/dL (3.5-5.0); Alkaline Phosphatase 192 U/L (40-110); Anion Gap 20 mmol/L (10-20); BUN (Urea Nitrogen) 28 mg/dL (9.8-20.1); Bilirubin, Total 0.4 mg/dL (0.2-1.2); Calc. Creatinine Clearance 0 mL/min (70-130); Calcium 8.7 mg/dL (7.8-10.44); Carbon Dioxide 17 mmol/L (22-29); Chloride 101 mmol/L (98-107); Globulin 3.1 g/dL (2.4-3.5); Glucose 262 mg/dL (70-105); Potassium 4.8 mmol/L (3.5-5.1); Protein, Total 6.2 g/dL (6.0-8.3); Sodium 133 mmol/L (136-145)
[2021-05-31] MEDS ORDERED: Vancomycin HCl 1 GM in Sodium Chloride 0.9% 250 ML 250 ML IVPB SCH (15:15)
[2021-05-31 15:43] LABS: Bacteria/HPF 2+ HPF (None Seen); Bilirubin Negative (Negative); Blood, Urine Negative (Negative); Clarity Clear (Clear); Glucose, Urine (Dipstick) Normal (Negative); Ketone, Urine 20 mg/dL (Negative); Leukocyte 25 Leu/uL (Negative); Nitrite Negative (Negative); Protein, Urine (Dipstick) 50 mg/dL (Neg-Trace); RBC/HPF 0-3 HPF (0-3); Specific Gravity, Urine 1.027 (1.002-1.036); Urobilinogen Normal mg/dL (Less than 2)
[2021-05-31] MEDS ORDERED: Calcium Carbonate 500 MG ChewTAB PO PRN (17:30)
[2021-05-31] MEDS ORDERED: Ondansetron PF 4 MG/2 ML Vial IVP PRN (17:30)
[2021-05-31] MEDS ORDERED: Acetaminophen 650 MG Suppository PR PRN (17:30)
[2021-05-31] MEDS ORDERED: Sodium Chloride 0.9% 1,000 ML IV SCH (17:45)
[2021-05-31 17:49] LABS: SARS-CoV-2 NAA Rapid Test Not Detected (NotDetected)
[2021-05-31] MEDS ORDERED: Dextrose 50% Abboject 50 ML SYRINGE SLOW IVP PRN (17:53)
[2021-05-31] MEDS ORDERED: Dextrose 5% in Water 1,000 ML IV PRN (17:53)
[2021-05-31] MEDS ORDERED: HumaLOG 300 UNITS/3 ML VIAL SC PRN (17:53)
[2021-05-31 18:11] LABS: Lactic Acid 2.4 mmol/L (0.5-2.2)
[2021-05-31] MEDS: Lactated Ringer's 1,000 ML IV SCH (18:32)
[2021-05-31 19:08] VITALS: BMI 26.9
[2021-05-31] MEDS ORDERED: INSULIN DEGLUDEC SC SCH (21:00)
[2021-05-31] MEDS ORDERED: LIRAGLUTIDE SC SCH (21:00)
[2021-05-31 21:27] LABS: Lactic Acid 4.3 mmol/L (0.5-2.2)
[2021-05-31] MEDS: Acetaminophen 325 MG TAB PO PRN (21:36)
[2021-05-31] MEDS: traZODone HCl 50 MG TAB PO PRN (21:38)
[2021-05-31] MEDS: Escitalopram Oxalate 20 mg Tablet PO SCH (21:38)
[2021-06-01] MEDS: HumaLOG 300 UNITS/3 ML VIAL SC PRN ×2 (00:19→20:33)
[2021-06-01] MEDS: Cefepime 2 GM in Sodium Chloride 0.9% 100 ML IVPB SCH ×2 (03:41→14:53)
[2021-06-01] MEDS: Ondansetron ODT 4 MG TAB PO PRN ×2 (03:48→10:51)
[2021-06-01] MEDS: Lactated Ringer's 1,000 ML IV SCH ×3 (04:12→23:04)
[2021-06-01] MEDS: Vancomycin 1 GM in Premix Bag 1 BAG IVPB SCH ×2 (04:28→20:22)
[2021-06-01 04:56] LABS: #Eosinphils 0.1 thou/uL (0.0-0.7); #Lymphocytes 1.3 thou/uL (1.20-3.40); #Neutrophils 8.9 thou/uL (1.40-6.50); %Basophils 0.1 % (0.0-1.0); %Eosinophils 0.8 % (0.0-10.0); %Lymphocytes 11.1 % (21.0-51.0); %Monocytes 8.8 % (0.0-10.0); %Neutrophils 79.2 % (42.0-75.0); Hemoglobin 11.6 g/dL (12.0-16.0); Mean Corpuscular HGB CONC 30.4 g/dL (32.0-36.0); Mean Corpuscular Hemoglobin 30.5 pg (27.0-31.0); Mean Platelet Volume 7.7 fL (7.4-10.4); Platelet Count 239 thou/uL (130-400); RBC Distribution Width 13.6 % (11.5-14.5); Red Blood Cell (RBC) Count 3.81 mill/uL (4.20-5.40); White Blood Cell (WBC) Count 11.3 thou/uL (4.8-10.8)
[2021-06-01 05:20] LABS: ALT (SGPT) 17 U/L (8-55); AST (SGOT) 19 U/L (5-34); Albumin 2.4 g/dL (3.5-5.0); Alkaline Phosphatase 255 U/L (40-110); Anion Gap 12 mmol/L (10-20); BUN (Urea Nitrogen) 24 mg/dL (9.8-20.1); Bilirubin, Total 0.3 mg/dL (0.2-1.2); Calc. Creatinine Clearance 78 mL/min (70-130); Calcium 7.8 mg/dL (7.8-10.44); Carbon Dioxide 17 mmol/L (22-29); Chloride 108 mmol/L (98-107); Globulin 2.7 g/dL (2.4-3.5); Glucose 141 mg/dL (70-105); Potassium 4.2 mmol/L (3.5-5.1); Protein, Total 5.1 g/dL (6.0-8.3); Sodium 133 mmol/L (136-145)
[2021-06-01 08:45] LABS: Lactic Acid 1.6 mmol/L (0.5-2.2)
[2021-06-01 08:51] LABS: Troponin I 0.071 ng/mL (< 0.028)
[2021-06-01] MEDS ORDERED: Amlodipine 5 MG TAB PO SCH (09:00)
[2021-06-01] MEDS ORDERED: Lisinopril/Hydrochlorothiazide 10 mg/12.5 mg Tablet PO SCH (09:00)
[2021-06-01] MEDS: Ubidecarenone 50 MG CAP PO SCH (10:53)
[2021-06-01] MEDS: Bupropion 150 MG SR TAB PO SCH (10:53)
[2021-06-01] MEDS: Enoxaparin Sodium 40 MG/0.4 ML SYRINGE SC SCH (10:53)
[2021-06-01] MEDS: Benzonatate 100 MG CAP PO SCH ×2 (14:53→20:16)
[2021-06-01] MEDS: guaiFENesin/Codeine 200 mg/20 mg 10 ml Cup PO PRN (18:16)
[2021-06-01] MEDS: Acetaminophen 325 MG TAB PO PRN (20:15)
[2021-06-01] MEDS: Escitalopram Oxalate 20 mg Tablet PO SCH (20:16)
[2021-06-01] MEDS: traZODone HCl 50 MG TAB PO PRN (20:22)
[2021-06-01] MEDS ORDERED: guaiFENesin ER 600 MG TAB PO SCH (21:00)
[2021-06-01] MEDS ORDERED: Lactated Ringer's 500 ML IV SCH (22:15)
[2021-06-02 03:13] LABS: Vancomycin, Trough 26.1 ug/mL
[2021-06-02] MEDS: Cefepime 2 GM in Sodium Chloride 0.9% 100 ML IVPB SCH (03:32)
[2021-06-02] MEDS: Vancomycin 1 GM in Premix Bag 1 BAG IVPB SCH (04:21)
[2021-06-02] MEDS: Enoxaparin Sodium 40 MG/0.4 ML SYRINGE SC SCH (08:28)
[2021-06-02] MEDS: Benzonatate 100 MG CAP PO SCH ×3 (08:28→20:44)
[2021-06-02] MEDS: Lactated Ringer's 1,000 ML IV SCH ×2 (08:28→14:57)
[2021-06-02] MEDS: Ubidecarenone 50 MG CAP PO SCH (08:29)
[2021-06-02] MEDS: Bupropion 150 MG SR TAB PO SCH (08:29)
[2021-06-02] MEDS ORDERED: Vancomycin HCl 1.5 GM in Sodium Chloride 0.9% 250 ML 300 ML IVPB SCH (16:00)
[2021-06-02] MEDS: Escitalopram Oxalate 20 mg Tablet PO SCH (20:45)
[2021-06-02] MEDS: guaiFENesin/Codeine 200 mg/20 mg 10 ml Cup PO PRN (23:24)
[2021-06-03] MEDS: Lactated Ringer's 1,000 ML IV SCH (06:00)
[2021-06-03 09:01] LABS: #Eosinphils 0.1 thou/uL (0.0-0.7); #Lymphocytes 1.3 thou/uL (1.20-3.40); #Monocytes 0.9 thou/uL (0.11-0.59); #Neutrophils 4.9 thou/uL (1.40-6.50); %Basophils 0.2 % (0.0-1.0); %Eosinophils 1.5 % (0.0-10.0); %Monocytes 12.8 % (0.0-10.0); %Neutrophils 67.4 % (42.0-75.0); Hemoglobin 11.5 g/dL (12.0-16.0); Mean Corpuscular HGB CONC 31.3 g/dL (32.0-36.0); Mean Platelet Volume 7.9 fL (7.4-10.4); Platelet Count 254 thou/uL (130-400); RBC Distribution Width 14.1 % (11.5-14.5); White Blood Cell (WBC) Count 7.3 thou/uL (4.8-10.8)
[2021-06-03 09:15] LABS: ALT (SGPT) 10 U/L (8-55); AST (SGOT) 14 U/L (5-34); Albumin 2.3 g/dL (3.5-5.0); Alkaline Phosphatase 186 U/L (40-110); Anion Gap 10 mmol/L (10-20); BUN (Urea Nitrogen) 20 mg/dL (9.8-20.1); Bilirubin, Total 0.2 mg/dL (0.2-1.2); Calc. Creatinine Clearance 86 mL/min (70-130); Calcium 7.8 mg/dL (7.8-10.44); Carbon Dioxide 17 mmol/L (22-29); Chloride 111 mmol/L (98-107); Globulin 2.7 g/dL (2.4-3.5); Glucose 115 mg/dL (70-105); Potassium 3.6 mmol/L (3.5-5.1); Sodium 134 mmol/L (136-145)
[2021-06-03] MEDS: Benzonatate 100 MG CAP PO SCH ×2 (10:12→17:53)
[2021-06-03] MEDS: Ubidecarenone 50 MG CAP PO SCH (10:13)
[2021-06-03] MEDS: Bupropion 150 MG SR TAB PO SCH (10:13)
[2021-06-03] MEDS: Enoxaparin Sodium 40 MG/0.4 ML SYRINGE SC SCH (10:13)
[2021-06-03] MEDS: guaiFENesin/Codeine 200 mg/20 mg 10 ml Cup PO PRN (13:41)
[2021-06-03] MEDS: Acetaminophen 325 MG TAB PO PRN (13:41)
[2021-06-03 19:05] VITALS: BP 94/59; TEMP 98
== END 2021-06-03 19:20 | disposition home or self-care (01) | DRG 315 ==
LOC: ERS 13:48 → 2NO 16:59
PROVIDERS: ADMIT Emergency Medicine; ATTEND Emergency Medicine
DX: I40.0 Infective myocarditis (principal); I31.3 Pericardial effusion (noninflammatory); R65.10 Systemic inflammatory response syndrome (SIRS) of non-infectious origin without acute organ dysfunction; M34.81 Systemic sclerosis with lung involvement; I31.9 Disease of pericardium, unspecified; Z20.822 Contact with and (suspected) exposure to COVID-19; I10 Essential (primary) hypertension; F41.9 Anxiety disorder, unspecified; F32.A Depression, unspecified; K21.9 Gastro-esophageal reflux disease without esophagitis; I95.9 Hypotension, unspecified; J84.89 Other specified interstitial pulmonary diseases; E11.9 Type 2 diabetes mellitus without complications; I25.10 Atherosclerotic heart disease of native coronary artery without angina pectoris; Z95.5 Presence of coronary angioplasty implant and graft; Z87.442 Personal history of urinary calculi; Z79.4 Long term (current) use of insulin; Z90.710 Acquired absence of both cervix and uterus; Z87.891 Personal history of nicotine dependence
CPT/HCPCS: 36415; 36416; 51701; 71045; 71275; 74176; 76705; 80053; 80202; 81003; 81015; 82977; 83605; 83690; 83880; 84145; 84484; 85025; 87040; 87086; 87804; 93005; 93010; 93306; 96365; 96375; J0692; J1650; J1815; J3370; J3490; J7050; J7120; Q0162; U0002

== ENCOUNTER 2021-06-29 09:22 | Inpatient (IN) | payer OTHER ==
[2021-06-29] MEDS ORDERED: Midazolam HCl 2 mg/2 ml Vial ONE (10:08)
[2021-06-29] MEDS ORDERED: Magnesium 2 GM/50 ML BAG (IN WATER) ONE (10:09)
[2021-06-29 10:35] LABS: #Eosinphils 0.5 thou/uL (0.0-0.7); #Lymphocytes 1.6 thou/uL (1.20-3.40); #Monocytes 0.8 thou/uL (0.11-0.59); #Neutrophils 6.8 thou/uL (1.40-6.50); %Basophils 0.3 % (0.0-1.0); %Eosinophils 5.1 % (0.0-10.0); %Lymphocytes 16.6 % (21.0-51.0); %Monocytes 8.4 % (0.0-10.0); %Neutrophils 69.6 % (42.0-75.0); Hemoglobin 14.5 g/dL (12.0-16.0); Mean Corpuscular HGB CONC 31.1 g/dL (32.0-36.0); Mean Corpuscular Hemoglobin 30.6 pg (27.0-31.0); Mean Corpuscular Volume 98.5 fL (78.0-98.0); Mean Platelet Volume 7.2 fL (7.4-10.4); Platelet Count 580 thou/uL (130-400); RBC Distribution Width 14.6 % (11.5-14.5); Red Blood Cell (RBC) Count 4.75 mill/uL (4.20-5.40); White Blood Cell (WBC) Count 9.7 thou/uL (4.8-10.8)
[2021-06-29 10:59] LABS: ALT (SGPT) 7 U/L (8-55); AST (SGOT) 14 U/L (5-34); Albumin 3.4 g/dL (3.5-5.0); Alkaline Phosphatase 130 U/L (40-110); Anion Gap 13 mmol/L (10-20); BUN (Urea Nitrogen) 20 mg/dL (9.8-20.1); Bilirubin, Total 0.4 mg/dL (0.2-1.2); Calc. Creatinine Clearance 0 mL/min (70-130); Calcium 9.4 mg/dL (7.8-10.44); Carbon Dioxide 30 mmol/L (22-29); Chloride 91 mmol/L (98-107); Globulin 4.4 g/dL (2.4-3.5); Lipase 23 U/L (8-78); Potassium 3.7 mmol/L (3.5-5.1); Protein, Total 7.8 g/dL (6.0-8.3); Sodium 130 mmol/L (136-145)
[2021-06-29 11:02] LABS: Troponin I Less than 0.010 ng/mL (< 0.028)
[2021-06-29 11:19] LABS: Glucose 58 mg/dL (70-105)
[2021-06-29] MEDS ORDERED: Ondansetron ODT 4 MG TAB SL PRN (15:00)
[2021-06-29] MEDS ORDERED: Acetaminophen 325 MG TAB PO PRN ×2 (15:00→18:15)
[2021-06-29] MEDS ORDERED: Ondansetron PF 4 MG/2 ML Vial IVP PRN (15:00)
[2021-06-29] MEDS ORDERED: Dextrose 5% in Water 1,000 ML IV PRN (15:51)
[2021-06-29] MEDS ORDERED: Dextrose 50% Abboject 50 ML SYRINGE SLOW IVP PRN (15:51)
[2021-06-29 15:54] VITALS: BMI 24.4
[2021-06-29] MEDS ORDERED: Dextrose 5%-Lactated Ringers 1,000 ML IV SCH (16:00)
[2021-06-29 16:09] LABS: Bacteria/HPF None Seen HPF (None Seen); Bilirubin Negative (Negative); Blood, Urine Negative (Negative); Clarity Clear (Clear); Glucose, Urine (Dipstick) Normal (Negative); Ketone, Urine Negative (Negative); Leukocyte Negative Leu/uL (Negative); Nitrite Negative (Negative); Protein, Urine (Dipstick) Negative (Neg-Trace); RBC/HPF 0-3 HPF (0-3); Squamous Epithelial 0-3 HPF (0-3); Urine Culture Reflex No No; Urobilinogen Normal mg/dL (Less than 2); WBC/HPF 0-3 HPF (0-3); pH, Urine 5.5 (5.0-9.0)
[2021-06-29 16:54] LABS: Magnesium 1.8 mg/dL (1.6-2.6); Phosphorus 3.5 mg/dL (2.3-4.7)
[2021-06-29] MEDS ORDERED: Potassium Chloride 20 MEQ TAB PO SCH (17:15)
[2021-06-29] MEDS ORDERED: Magnesium 2 GM/50 ML(in water) 2 GM in Premix Bag 1 BAG IVPB SCH (17:15)
[2021-06-29] MEDS ORDERED: PHOS-NAK 1 PKT PACK PO SCH (17:15)
[2021-06-29] MEDS ORDERED: Insulin Regular 300 UNITS/3 ML VIAL SC PRN (17:56)
[2021-06-29] MEDS ORDERED: LIRAGLUTIDE SC PRN (18:29)
[2021-06-29] MEDS ORDERED: INSULIN DEGLUDEC SC PRN (18:29)
[2021-06-29] MEDS: Mycophenolate 250 MG CAP PO SCH (20:13)
[2021-06-29] MEDS: Escitalopram Oxalate 20 mg Tablet PO SCH (20:13)
[2021-06-29] MEDS: traZODone HCl 50 MG TAB PO PRN (21:46)
[2021-06-29] MEDS: Lactated Ringer's 1,000 ML IV SCH (23:43)
[2021-06-30 05:15] LABS: #Eosinphils 0.2 thou/uL (0.0-0.7); #Lymphocytes 1.2 thou/uL (1.20-3.40); #Monocytes 0.7 thou/uL (0.11-0.59); #Neutrophils 5.4 thou/uL (1.40-6.50); %Basophils 0.2 % (0.0-1.0); %Eosinophils 2.9 % (0.0-10.0); %Lymphocytes 16.1 % (21.0-51.0); %Monocytes 9.6 % (0.0-10.0); %Neutrophils 71.2 % (42.0-75.0); Hemoglobin 13.3 g/dL (12.0-16.0); Mean Corpuscular Hemoglobin 30.1 pg (27.0-31.0); Mean Platelet Volume 7.2 fL (7.4-10.4); Platelet Count 438 thou/uL (130-400); White Blood Cell (WBC) Count 7.6 thou/uL (4.8-10.8)
[2021-06-30 05:29] LABS: Anion Gap 14 mmol/L (10-20); BUN (Urea Nitrogen) 20 mg/dL (9.8-20.1); Calc. Creatinine Clearance 61 mL/min (70-130); Calcium 8.6 mg/dL (7.8-10.44); Carbon Dioxide 24 mmol/L (22-29); Chloride 101 mmol/L (98-107); Glucose 140 mg/dL (70-105); Potassium 4.8 mmol/L (3.5-5.1); Sodium 134 mmol/L (136-145)
[2021-06-30 07:51] LABS: Magnesium 2.5 mg/dL (1.6-2.6)
[2021-06-30] MEDS: Amlodipine 5 MG TAB PO SCH (08:47)
[2021-06-30] MEDS: Enoxaparin Sodium 40 MG/0.4 ML SYRINGE SC SCH (08:49)
[2021-06-30] MEDS: Bupropion 150 MG SR TAB PO SCH (08:49)
[2021-06-30] MEDS: Folic Acid 1 MG TAB PO SCH (08:49)
[2021-06-30] MEDS: Lisinopril/Hydrochlorothiazide 10 mg/12.5 mg Tablet PO SCH (08:50)
[2021-06-30] MEDS: Mycophenolate 250 MG CAP PO SCH ×2 (08:52→23:13)
[2021-06-30] MEDS: Ubidecarenone 50 MG CAP PO SCH (08:53)
[2021-06-30] MEDS: Lactated Ringer's 1,000 ML IV SCH (08:58)
[2021-06-30] MEDS ORDERED: Prevnar 13-Val Conj/PF 0.5 ML SYRINGE IM ONE (09:00)
[2021-06-30 11:58] LABS: SARS-CoV-2 PCR by NAA Not Detected (NotDetected)
[2021-06-30] MEDS: HumaLOG 300 UNITS/3 ML VIAL SC PRN (12:01)
[2021-06-30 12:39] LABS: SARS-CoV-2 NAA Rapid Test Not Detected (NotDetected)
[2021-06-30] MEDS: Benzonatate 100 MG CAP PO PRN ×2 (17:26→23:13)
[2021-06-30] MEDS: Escitalopram Oxalate 20 mg Tablet PO SCH (23:13)
[2021-06-30] MEDS: traZODone HCl 50 MG TAB PO PRN (23:13)
[2021-07-01 05:44] LABS: #Basophils 0.1 thou/uL (0.0-0.2); #Eosinphils 0.3 thou/uL (0.0-0.7); #Lymphocytes 1.2 thou/uL (1.20-3.40); #Monocytes 0.7 thou/uL (0.11-0.59); #Neutrophils 4.4 thou/uL (1.40-6.50); %Basophils 1.5 % (0.0-1.0); %Eosinophils 4.8 % (0.0-10.0); %Lymphocytes 17.1 % (21.0-51.0); %Monocytes 10.9 % (0.0-10.0); %Neutrophils 65.8 % (42.0-75.0); Mean Corpuscular HGB CONC 30.7 g/dL (32.0-36.0); Mean Corpuscular Hemoglobin 30.9 pg (27.0-31.0); Mean Platelet Volume 7.4 fL (7.4-10.4); Platelet Count 351 thou/uL (130-400); RBC Distribution Width 14.9 % (11.5-14.5); Red Blood Cell (RBC) Count 3.89 mill/uL (4.20-5.40); White Blood Cell (WBC) Count 6.8 thou/uL (4.8-10.8)
[2021-07-01 06:03] LABS: Anion Gap 11 mmol/L (10-20); BUN (Urea Nitrogen) 17 mg/dL (9.8-20.1); Calc. Creatinine Clearance 72 mL/min (70-130); Calcium 8.2 mg/dL (7.8-10.44); Carbon Dioxide 25 mmol/L (22-29); Chloride 103 mmol/L (98-107); Glucose 172 mg/dL (70-105); Potassium 4.6 mmol/L (3.5-5.1); Sodium 134 mmol/L (136-145)
[2021-07-01] MEDS: Enoxaparin Sodium 40 MG/0.4 ML SYRINGE SC SCH (08:11)
[2021-07-01] MEDS: Bupropion 150 MG SR TAB PO SCH (08:12)
[2021-07-01] MEDS: Folic Acid 1 MG TAB PO SCH (08:12)
[2021-07-01] MEDS: Amlodipine 5 MG TAB PO SCH (08:12)
[2021-07-01] MEDS: Lisinopril/Hydrochlorothiazide 10 mg/12.5 mg Tablet PO SCH (08:12)
[2021-07-01] MEDS: Ubidecarenone 50 MG CAP PO SCH (08:13)
[2021-07-01] MEDS: Mycophenolate 250 MG CAP PO SCH (08:14)
[2021-07-01] MEDS: Benzonatate 100 MG CAP PO PRN (08:17)
[2021-07-01] MEDS: HumaLOG 300 UNITS/3 ML VIAL SC PRN (11:53)
[2021-07-01 12:14] VITALS: BP 112/69; TEMP 97.6
== END 2021-07-01 17:56 | disposition home or self-care (01) | DRG 638 ==
LOC: ERS 09:22 → 2SW 13:08 → OBSVTOIN 06-30 12:07 → T4-A 06-30 15:01
PROVIDERS: ADMIT Student in an Organized Health Care Education/Training Program; ATTEND Student in an Organized Health Care Education/Training Program
DX: E11.649 Type 2 diabetes mellitus with hypoglycemia without coma (principal); E87.1 Hypo-osmolality and hyponatremia; J11.1 Influenza due to unidentified influenza virus with other respiratory manifestations; E86.0 Dehydration; Z20.822 Contact with and (suspected) exposure to COVID-19; M34.9 Systemic sclerosis, unspecified; I27.20 Pulmonary hypertension, unspecified; I10 Essential (primary) hypertension; D64.9 Anemia, unspecified; E87.6 Hypokalemia; E83.42 Hypomagnesemia; E83.39 Other disorders of phosphorus metabolism; R33.9 Retention of urine, unspecified; R94.31 Abnormal electrocardiogram [ECG] [EKG]; I25.10 Atherosclerotic heart disease of native coronary artery without angina pectoris; K21.9 Gastro-esophageal reflux disease without esophagitis; F41.9 Anxiety disorder, unspecified; F32.A Depression, unspecified; Z79.899 Other long term (current) drug therapy; Z79.4 Long term (current) use of insulin; Z90.710 Acquired absence of both cervix and uterus; Z98.84 Bariatric surgery status; Z83.3 Family history of diabetes mellitus; Z82.49 Family history of ischemic heart disease and other diseases of the circulatory system; Z87.891 Personal history of nicotine dependence; Z95.5 Presence of coronary angioplasty implant and graft
CPT/HCPCS: 36415; 36416; 71045; 74177; 80048; 80053; 81001; 83690; 83735; 84100; 84484; 85025; 93005; 96365; 96375; J1650; J1815; J2250; J2405; J3475; J7120; J7517; J7620; Q9967; U0003; U0005

== ENCOUNTER 2021-07-07 16:25 | Outpatient (CLI) | payer SELFPAY | END 2021-07-07 16:26 | disposition home or self-care (01) | LOC: RAD 16:25 | PROVIDERS: ATTEND Physical Medicine & Rehabilitation | DX: M54.50 Low back pain, unspecified (principal); M47.816 Spondylosis without myelopathy or radiculopathy, lumbar region; W19.XXXA Unspecified fall, initial encounter | CPT/HCPCS: 72100 ==

== ENCOUNTER 2021-07-28 11:31 | Outpatient (CLI) | payer OTHER | END 2021-07-28 11:32 | disposition home or self-care (01) | LOC: RAD 11:31 | PROVIDERS: ATTEND Internal Medicine Critical Care Medicine | DX: R06.00 Dyspnea, unspecified (principal); R91.8 Other nonspecific abnormal finding of lung field | CPT/HCPCS: 71046 ==

== ENCOUNTER 2021-10-19 10:50 | Outpatient (CLI) | payer OTHER | END 2021-10-19 10:51 | disposition home or self-care (01) | LOC: RAD 10:50 | PROVIDERS: ATTEND Internal Medicine Critical Care Medicine | DX: R06.00 Dyspnea, unspecified (principal); J84.9 Interstitial pulmonary disease, unspecified | CPT/HCPCS: 71046 ==

== ENCOUNTER 2021-11-02 14:02 | Inpatient (IN) | payer OTHER ==
[2021-11-02 14:40] LABS: #Eosinphils 0.2 thou/uL (0.0-0.7); #Lymphocytes 1.5 thou/uL (1.20-3.40); #Monocytes 0.9 thou/uL (0.11-0.59); #Neutrophils 7.4 thou/uL (1.40-6.50); %Basophils 0.3 % (0.0-1.0); %Eosinophils 1.6 % (0.0-10.0); %Lymphocytes 14.5 % (21.0-51.0); %Monocytes 9.4 % (0.0-10.0); %Neutrophils 74.2 % (42.0-75.0); Hemoglobin 13.2 g/dL (12.0-16.0); Mean Corpuscular HGB CONC 31.8 g/dL (32.0-36.0); Mean Corpuscular Volume 94.4 fL (78.0-98.0); Mean Platelet Volume 7.8 fL (7.4-10.4); Platelet Count 334 thou/uL (130-400); RBC Distribution Width 12.3 % (11.5-14.5)
[2021-11-02] MEDS ORDERED: Morphine 4 MG/ML VIAL ONE (15:09)
[2021-11-02 15:19] LABS: ALT (SGPT) 13 U/L (8-55); AST (SGOT) 12 U/L (5-34); Albumin 3.8 g/dL (3.5-5.0); Alkaline Phosphatase 119 U/L (40-110); Anion Gap 17 mmol/L (10-20); BUN (Urea Nitrogen) 18 mg/dL (9.8-20.1); Bilirubin, Total 0.4 mg/dL (0.2-1.2); Calc. Creatinine Clearance 0 mL/min (70-130); Calcium 9.3 mg/dL (7.8-10.44); Carbon Dioxide 23 mmol/L (22-29); Chloride 98 mmol/L (98-107); Estimated GFR 74; Globulin 3.3 g/dL (2.4-3.5); Glucose 189 mg/dL (70-105); Lipase 6 U/L (8-78); Potassium 3.4 mmol/L (3.5-5.1); Protein, Total 7.1 g/dL (6.0-8.3); Sodium 135 mmol/L (136-145)
[2021-11-02] MEDS ORDERED: Promethazine HCl 12.5 MG in Sodium Chloride 0.9% 100 ML IVPB SCH (15:30)
[2021-11-02] MEDS ORDERED: Lactated Ringer's 1,000 ML IV SCH (17:30)
[2021-11-02] MEDS ORDERED: Aspirin Chewable 81 MG TAB ONE (17:31)
[2021-11-02] MEDS ORDERED: Lorazepam 1 MG TAB ONE (17:58)
[2021-11-02] MEDS ORDERED: Insulin Regular 300 UNITS/3 ML VIAL SC PRN (17:58)
[2021-11-02] MEDS ORDERED: Dextrose 50% Abboject 50 ML SYRINGE SLOW IVP PRN (17:58)
[2021-11-02] MEDS ORDERED: Dextrose 5% in Water 1,000 ML IV PRN (17:58)
[2021-11-02] MEDS ORDERED: traZODone HCl 50 MG TAB PO PRN (18:21)
[2021-11-02] MEDS ORDERED: guaiFENesin/Codeine 200 mg/20 mg 10 ml Cup PO PRN (18:21)
[2021-11-02] MEDS: Metoclopramide HCl 10 MG TAB PO SCH (21:58)
[2021-11-02] MEDS: Mycophenolate 250 MG CAP PO SCH (21:58)
[2021-11-02] MEDS: Escitalopram Oxalate 20 mg Tablet PO SCH (21:58)
[2021-11-02 22:52] VITALS: BMI 21.7
[2021-11-02 23:08] LABS: SARS-CoV-2 NAA Rapid Test Not Detected (NotDetected)
[2021-11-03 05:21] LABS: Anion Gap 16 mmol/L (10-20); BUN (Urea Nitrogen) 16 mg/dL (9.8-20.1); Calc. Creatinine Clearance 73 mL/min (70-130); Calcium 9.1 mg/dL (7.8-10.44); Carbon Dioxide 24 mmol/L (22-29); Chloride 99 mmol/L (98-107); Estimated GFR 89; Glucose 150 mg/dL (70-105); Potassium 3.2 mmol/L (3.5-5.1); Sodium 136 mmol/L (136-145)
[2021-11-03] MEDS ORDERED: Potassium Chloride 20 MEQ TAB PO SCH ×2 (08:30→15:30)
[2021-11-03] MEDS: Potassium Chloride 20 MEQ in Premix Bag 1 BAG IVPB SCH ×3 (13:14→17:00)
[2021-11-03] MEDS: Metoclopramide HCl 10 MG TAB PO SCH ×3 (16:57→21:26)
[2021-11-03] MEDS: Mycophenolate 250 MG CAP PO SCH ×2 (16:58→21:26)
[2021-11-03] MEDS: Lisinopril/Hydrochlorothiazide 10 mg/12.5 mg Tablet PO SCH (16:58)
[2021-11-03] MEDS: Folic Acid 1 MG TAB PO SCH (16:58)
[2021-11-03] MEDS: Amlodipine 5 MG TAB PO SCH (16:58)
[2021-11-03] MEDS: Bupropion 150 MG SR TAB PO SCH (16:58)
[2021-11-03] MEDS: Ondansetron PF 4 MG/2 ML Vial IVP PRN (17:04)
[2021-11-03] MEDS: Escitalopram Oxalate 20 mg Tablet PO SCH (21:26)
[2021-11-04] MEDS: Acetaminophen 325 MG TAB PO PRN (04:45)
[2021-11-04 05:36] LABS: ALT (SGPT) 8 U/L (8-55); AST (SGOT) 10 U/L (5-34); Albumin 3.1 g/dL (3.5-5.0); Alkaline Phosphatase 97 U/L (40-110); Anion Gap 14 mmol/L (10-20); BUN (Urea Nitrogen) 13 mg/dL (9.8-20.1); Bilirubin, Total 0.3 mg/dL (0.2-1.2); Calc. Creatinine Clearance 77 mL/min (70-130); Calcium 8.5 mg/dL (7.8-10.44); Carbon Dioxide 24 mmol/L (22-29); Chloride 100 mmol/L (98-107); Estimated GFR 95; Glucose 205 mg/dL (70-105); Potassium 3.7 mmol/L (3.5-5.1); Protein, Total 6.1 g/dL (6.0-8.3); Sodium 134 mmol/L (136-145)
[2021-11-04] MEDS: Folic Acid 1 MG TAB PO SCH (09:55)
[2021-11-04] MEDS: Lisinopril/Hydrochlorothiazide 10 mg/12.5 mg Tablet PO SCH (09:55)
[2021-11-04] MEDS: Bupropion 150 MG SR TAB PO SCH (09:55)
[2021-11-04] MEDS: Amlodipine 5 MG TAB PO SCH (09:55)
[2021-11-04] MEDS: Metoclopramide HCl 10 MG TAB PO SCH ×4 (09:56→20:14)
[2021-11-04] MEDS: Mycophenolate 250 MG CAP PO SCH ×2 (10:02→20:12)
[2021-11-04] MEDS: Ondansetron PF 4 MG/2 ML Vial IVP PRN (13:08)
[2021-11-04] MEDS: Escitalopram Oxalate 20 mg Tablet PO SCH (20:14)
[2021-11-05 07:10] LABS: #Eosinphils 0.1 thou/uL (0.0-0.7); #Lymphocytes 1.3 thou/uL (1.20-3.40); #Monocytes 0.9 thou/uL (0.11-0.59); #Neutrophils 6.1 thou/uL (1.40-6.50); %Basophils 0.5 % (0.0-1.0); %Eosinophils 1.4 % (0.0-10.0); %Lymphocytes 15.6 % (21.0-51.0); %Monocytes 10.9 % (0.0-10.0); %Neutrophils 71.6 % (42.0-75.0); Hemoglobin 12.3 g/dL (12.0-16.0); Mean Corpuscular HGB CONC 31.2 g/dL (32.0-36.0); Mean Corpuscular Hemoglobin 29.9 pg (27.0-31.0); Mean Corpuscular Volume 95.6 fL (78.0-98.0); Mean Platelet Volume 7.8 fL (7.4-10.4); Platelet Count 261 thou/uL (130-400); RBC Distribution Width 12.4 % (11.5-14.5); Red Blood Cell (RBC) Count 4.11 mill/uL (4.20-5.40); White Blood Cell (WBC) Count 8.5 thou/uL (4.8-10.8)
[2021-11-05 07:31] LABS: Anion Gap 15 mmol/L (10-20); BUN (Urea Nitrogen) 11 mg/dL (9.8-20.1); Calc. Creatinine Clearance 78 mL/min (70-130); Carbon Dioxide 24 mmol/L (22-29); Chloride 101 mmol/L (98-107); Estimated GFR 96; Glucose 139 mg/dL (70-105); Potassium 3.8 mmol/L (3.5-5.1); Sodium 136 mmol/L (136-145)
[2021-11-05] MEDS: Bupropion 150 MG SR TAB PO SCH (08:06)
[2021-11-05] MEDS: Mycophenolate 250 MG CAP PO SCH ×2 (08:06→20:07)
[2021-11-05] MEDS: Amlodipine 5 MG TAB PO SCH (08:07)
[2021-11-05] MEDS: Lisinopril/Hydrochlorothiazide 10 mg/12.5 mg Tablet PO SCH (08:07)
[2021-11-05] MEDS: Folic Acid 1 MG TAB PO SCH (08:07)
[2021-11-05] MEDS: Metoclopramide HCl 10 MG TAB PO SCH ×4 (08:07→20:07)
[2021-11-05] MEDS ORDERED: PROPOFOL 200 MG/20 ML VIAL ONE (13:12)
[2021-11-05] MEDS ORDERED: Polyethylene Glycol 3350 17 GM Packet PO PRN (18:14)
[2021-11-05] MEDS: Acetaminophen 325 MG TAB PO PRN (18:40)
[2021-11-05] MEDS: Escitalopram Oxalate 20 mg Tablet PO SCH (20:07)
[2021-11-05] MEDS: Pantoprazole 40 MG VIAL IVP SCH (20:26)
[2021-11-06] MEDS: Mycophenolate 250 MG CAP PO SCH (08:14)
[2021-11-06] MEDS: Metoclopramide HCl 10 MG TAB PO SCH ×2 (08:14→12:34)
[2021-11-06] MEDS: Lisinopril/Hydrochlorothiazide 10 mg/12.5 mg Tablet PO SCH (08:14)
[2021-11-06] MEDS: Folic Acid 1 MG TAB PO SCH (08:15)
[2021-11-06] MEDS: Amlodipine 5 MG TAB PO SCH (08:15)
[2021-11-06] MEDS: Pantoprazole 40 MG VIAL IVP SCH (08:16)
[2021-11-06] MEDS: Ondansetron PF 4 MG/2 ML Vial IVP PRN (08:16)
[2021-11-06] MEDS: Acetaminophen 325 MG TAB PO PRN (08:20)
[2021-11-06] MEDS: Bupropion 150 MG SR TAB PO SCH (08:34)
[2021-11-06 12:08] VITALS: BP 117/74; TEMP 97.9
[2021-11-06] MEDS ORDERED: hydrOXYzine 25 MG TAB PO SCH (14:30)
[2021-11-06] MEDS ORDERED: Acetaminophen 325 MG TAB PO SCH (16:00)
== END 2021-11-06 16:33 | disposition home or self-care (01) | DRG 381 ==
LOC: ERS 14:02 → 2SW 16:51 → OBSVTOIN 11-04 12:22 → MSONC 11-05 16:42
PROVIDERS: ADMIT Student in an Organized Health Care Education/Training Program; ATTEND Student in an Organized Health Care Education/Training Program
PROC: 0DB58ZX Excision of Esophagus, Via Natural or Artificial Opening Endoscopic, Diagnostic (ICD-10-PCS; principal; 2021-11-05)
PROC: 0DB78ZX Excision of Stomach, Pylorus, Via Natural or Artificial Opening Endoscopic, Diagnostic (ICD-10-PCS; 2021-11-05)
DX: K22.10 Ulcer of esophagus without bleeding (principal); E87.2 Acidosis; K52.9 Noninfective gastroenteritis and colitis, unspecified; K92.0 Hematemesis; M34.1 CR(E)ST syndrome; Z20.822 Contact with and (suspected) exposure to COVID-19; J84.10 Pulmonary fibrosis, unspecified; I25.10 Atherosclerotic heart disease of native coronary artery without angina pectoris; I10 Essential (primary) hypertension; K21.9 Gastro-esophageal reflux disease without esophagitis; M54.9 Dorsalgia, unspecified; G89.29 Other chronic pain; E11.9 Type 2 diabetes mellitus without complications; F41.9 Anxiety disorder, unspecified; F32.A Depression, unspecified; F17.210 Nicotine dependence, cigarettes, uncomplicated; E86.0 Dehydration; E87.6 Hypokalemia; K29.70 Gastritis, unspecified, without bleeding; M34.9 Systemic sclerosis, unspecified; Z90.710 Acquired absence of both cervix and uterus; Z98.51 Tubal ligation status; Z99.81 Dependence on supplemental oxygen
CPT/HCPCS: 36415; 36416; 71045; 74177; 80048; 80053; 83690; 83880; 84484; 85025; 88305; 93005; 94640; 94760; 96365; 96375; C9113; G0378; J1815; J2270; J2405; J2550; J2704; J3480; J3490; J7120; J7517; J7620; Q9967; U0002

== ENCOUNTER 2021-11-29 13:11 | Outpatient (CLI) | payer OTHER | END 2021-11-29 13:12 | disposition home or self-care (01) | LOC: BICCT 13:11 | PROVIDERS: ATTEND Internal Medicine Critical Care Medicine | DX: J84.9 Interstitial pulmonary disease, unspecified (principal); R59.0 Localized enlarged lymph nodes; K44.9 Diaphragmatic hernia without obstruction or gangrene; J84.10 Pulmonary fibrosis, unspecified | CPT/HCPCS: 71250 ==

== ENCOUNTER 2022-03-16 00:03 | Emergency (ER) | payer MEDICAID, MEDICARE, OTHER ==
[2022-03-16] MEDS ORDERED: Ondansetron PF 4 MG/2 ML Vial ONE (04:01)
[2022-03-16 04:33] LABS: #Eosinphils 0.1 thou/uL (0.0-0.7); #Lymphocytes 1.4 thou/uL (1.20-3.40); #Monocytes 0.8 thou/uL (0.11-0.59); #Neutrophils 14.4 thou/uL (1.40-6.50); %Basophils 0.1 % (0.0-1.0); %Eosinophils 0.3 % (0.0-10.0); %Lymphocytes 8.4 % (21.0-51.0); %Monocytes 4.7 % (0.0-10.0); %Neutrophils 86.5 % (42.0-75.0); Mean Corpuscular HGB CONC 31.9 g/dL (32.0-36.0); Mean Corpuscular Hemoglobin 28.6 pg (27.0-31.0); Mean Corpuscular Volume 89.6 fl (78.0-98.0); Mean Platelet Volume 7.1 fL (7.4-10.4); Platelet Count 481 10x3/uL (130-400); RBC Distribution Width 12.8 % (11.5-14.5); Red Blood Cell (RBC) Count 3.49 mill/uL (4.20-5.40); White Blood Cell (WBC) Count 16.7 10x3/uL (4.8-10.8)
[2022-03-16 04:50] LABS: ALT (SGPT) Less than 7 U/L (8-55); AST (SGOT) 16 U/L (5-34); Alkaline Phosphatase 112 U/L (40-110); Anion Gap 19 mmol/L (10-20); BUN (Urea Nitrogen) 20 mg/dL (9.8-20.1); Bilirubin, Total 0.2 mg/dL (0.2-1.2); Calc. Creatinine Clearance 0 mL/min (70-130); Calcium 9.2 mg/dL (7.8-10.44); Carbon Dioxide 21 mmol/L (22-29); Chloride 99 mmol/L (98-107); Estimated GFR 71; Glucose 160 mg/dL (70-105); Lipase 6 U/L (8-78); Potassium 4.6 mmol/L (3.5-5.1); Sodium 134 mmol/L (136-145)
[2022-03-16 05:20] LABS: SARS-CoV-2 NAA Rapid Test Not Detected (NotDetected)
[2022-03-16 05:35] LABS: Bilirubin Negative (Negative); Blood, Urine Negative (Negative); Clarity Clear (Clear); Glucose, Urine (Dipstick) Normal (Negative); Ketone, Urine Negative (Negative); Leukocyte Negative Leu/uL (Negative); Nitrite Negative (Negative); Protein, Urine (Dipstick) Negative (Neg-Trace); Specific Gravity, Urine 1.016 (1.002-1.036); Urobilinogen Normal mg/dL (Less than 2); pH, Urine 5.5 (5.0-9.0)
[2022-03-16] MEDS ORDERED: Iopamidol-370 76% 500 ML 1 ML ONE (09:02)
== END 2022-03-16 06:55 | disposition home or self-care (01) ==
LOC: ERS 00:03
DX: B34.9 Viral infection, unspecified (principal); D72.829 Elevated white blood cell count, unspecified; E11.9 Type 2 diabetes mellitus without complications; Z79.4 Long term (current) use of insulin; Z79.899 Other long term (current) drug therapy
CPT/HCPCS: 71046; 74177; 80053; 81003; 83690; 84484; 85025; 87804 ×2; U0002; 96374; J2405; Q9967

== ENCOUNTER 2022-06-03 17:35 | Inpatient (IN) | payer MEDICARE, MEDICAID ==
[2022-06-03 19:12] LABS: #Eosinphils 0.2 thou/uL (0.0-0.7); #Lymphocytes 1.1 thou/uL (1.20-3.40); #Monocytes 1.2 thou/uL (0.11-0.59); #Neutrophils 9.7 thou/uL (1.40-6.50); %Basophils 0.1 % (0.0-1.0); %Eosinophils 1.3 % (0.0-10.0); %Lymphocytes 8.9 % (21.0-51.0); %Monocytes 9.9 % (0.0-10.0); %Neutrophils 79.7 % (42.0-75.0); Hemoglobin 11.4 g/dL (12.0-16.0); Mean Corpuscular HGB CONC 30.8 g/dL (32.0-36.0); Mean Corpuscular Hemoglobin 28.3 pg (27.0-31.0); Mean Corpuscular Volume 91.6 fl (78.0-98.0); Mean Platelet Volume 8.1 fL (7.4-10.4); Platelet Count 340 10x3/uL (130-400); Red Blood Cell (RBC) Count 4.03 mill/uL (4.20-5.40); White Blood Cell (WBC) Count 12.2 10x3/uL (4.8-10.8)
[2022-06-03 19:23] LABS: ALT (SGPT) 8 U/L (8-55); AST (SGOT) 12 U/L (5-34); Albumin 3.8 g/dL (3.5-5.0); Alkaline Phosphatase 87 U/L (40-110); Anion Gap 16 mmol/L (10-20); BUN (Urea Nitrogen) 16 mg/dL (9.8-20.1); Bilirubin, Total 0.2 mg/dL (0.2-1.2); Calc. Creatinine Clearance 0 mL/min (70-130); Calcium 9.2 mg/dL (7.8-10.44); Carbon Dioxide 23 mmol/L (22-29); Chloride 104 mmol/L (98-107); Estimated GFR 90; Globulin 2.9 g/dL (2.4-3.5); Potassium 3.8 mmol/L (3.5-5.1); Protein, Total 6.7 g/dL (6.0-8.3); Sodium 139 mmol/L (136-145)
[2022-06-03 19:28] LABS: Glucose 50 mg/dL (70-105)
[2022-06-03] MEDS ORDERED: Acetaminophen 325 MG TAB PO PRN (20:00)
[2022-06-03] MEDS ORDERED: Ondansetron PF 4 MG/2 ML Vial IVP PRN (20:00)
[2022-06-03] MEDS ORDERED: Ondansetron ODT 4 MG TAB SL PRN (20:00)
[2022-06-03 21:38] VITALS: BMI 23.3
[2022-06-03] MEDS ORDERED: Dextrose 50% Abboject 50 ML SYRINGE SLOW IVP PRN (21:44)
[2022-06-03] MEDS ORDERED: Dextrose 5% in Water 1,000 ML IV PRN (21:44)
[2022-06-03] MEDS ORDERED: HumaLOG 300 UNITS/3 ML VIAL SC PRN (21:47)
[2022-06-03] MEDS ORDERED: Acetaminophen/Codeine 30-300mg Tablet PO PRN (21:49)
[2022-06-03] MEDS ORDERED: traZODone HCl 50 MG TAB PO PRN (21:49)
[2022-06-03 23:42] LABS: SARS-CoV-2 NAA Rapid Test Not Detected (NotDetected)
[2022-06-03] MEDS ORDERED: Escitalopram Oxalate 20 mg Tablet PO SCH (23:45)
[2022-06-03] MEDS ORDERED: busPIRone HCl 10 MG TAB PO SCH (23:45)
[2022-06-04] MEDS ORDERED: Mycophenolate 250 MG CAP PO SCH ×2 (00:15→09:00)
[2022-06-04] MEDS: Ipratropium/Albuterol 3 ML NEB NEB SCH ×5 (00:31→23:15)
[2022-06-04 05:25] LABS: Hemoglobin 9.6 g/dL (12.0-16.0); Mean Corpuscular HGB CONC 29.6 g/dL (32.0-36.0); Mean Corpuscular Hemoglobin 27.2 pg (27.0-31.0); Mean Corpuscular Volume 91.8 fl (78.0-98.0); Mean Platelet Volume 8.4 fL (7.4-10.4); Platelet Count 249 10x3/uL (130-400); RBC Distribution Width 22.1 % (11.5-14.5); Red Blood Cell (RBC) Count 3.52 mill/uL (4.20-5.40); White Blood Cell (WBC) Count 9.2 10x3/uL (4.8-10.8)
[2022-06-04] MEDS ORDERED: Ipratropium/Albuterol 3 ML NEB NEB PRN (05:52)
[2022-06-04 05:54] LABS: ALT (SGPT) Less than 7 U/L (8-55); AST (SGOT) 10 U/L (5-34); Alkaline Phosphatase 75 U/L (40-110); Anion Gap 12 mmol/L (10-20); BUN (Urea Nitrogen) 17 mg/dL (9.8-20.1); Bilirubin, Total Less than 0.2 mg/dL (0.2-1.2); Calc. Creatinine Clearance 71 mL/min (70-130); Calcium 8.3 mg/dL (7.8-10.44); Carbon Dioxide 21 mmol/L (22-29); Chloride 106 mmol/L (98-107); Estimated GFR 86; Globulin 2.7 g/dL (2.4-3.5); Glucose 185 mg/dL (70-105); Potassium 3.9 mmol/L (3.5-5.1); Protein, Total 5.7 g/dL (6.0-8.3); Sodium 135 mmol/L (136-145)
[2022-06-04 06:04] LABS: #Eosinphils 0.1 thou/uL (0.0-0.7); #Lymphocytes 0.9 thou/uL (1.20-3.40); #Neutrophils 7.2 thou/uL (1.40-6.50); %Basophils 0.1 % (0.0-1.0); %Eosinophils 1.4 % (0.0-10.0); %Lymphocytes 9.8 % (21.0-51.0); %Monocytes 10.9 % (0.0-10.0); %Neutrophils 77.9 % (42.0-75.0); Anisocytosis SLIGHT = 6-15 cells (100X) (0-5/hpf); Hypochromia SLIGHT = 6-15 cells (100X) (0-5/hpf); MDiff Complete? YES
[2022-06-04] MEDS ORDERED: predniSONE 20 MG TAB PO SCH (06:30)
[2022-06-04] MEDS: Lisinopril/Hydrochlorothiazide 10 mg/12.5 mg Tablet PO SCH (08:06)
[2022-06-04] MEDS: Amlodipine 5 MG TAB PO SCH (08:06)
[2022-06-04] MEDS: Folic Acid 1 MG TAB PO SCH (08:07)
[2022-06-04] MEDS: Benzonatate 100 MG CAP PO PRN ×2 (08:07→20:16)
[2022-06-04] MEDS: Bupropion 150 MG XL TAB PO SCH (08:07)
[2022-06-04] MEDS: Mycophenolate 250 MG CAP PO SCH ×2 (08:07→20:16)
[2022-06-04] MEDS: busPIRone HCl 10 MG TAB PO SCH ×2 (08:07→20:16)
[2022-06-04] MEDS: INSULIN DEGLUDEC SC SCH (08:08)
[2022-06-04] MEDS: LIRAGLUTIDE SC SCH (08:08)
[2022-06-04] MEDS ORDERED: LIRAGLUTIDE SC SCH (09:00)
[2022-06-04] MEDS ORDERED: busPIRone HCl 10 MG TAB PO SCH (09:00)
[2022-06-04] MEDS ORDERED: INSULIN DEGLUDEC SC SCH (09:00)
[2022-06-04] MEDS: HumaLOG 300 UNITS/3 ML VIAL SC PRN ×2 (11:09→17:56)
[2022-06-04] MEDS: guaiFENesin ER 600 MG TAB PO SCH (20:16)
[2022-06-04] MEDS: Buprenorphine Hcl [Belbuca] 150 MCG Film SL SCH (20:17)
[2022-06-04] MEDS ORDERED: Escitalopram Oxalate 20 mg Tablet PO SCH ×2 (21:00)
[2022-06-05 05:40] LABS: #Eosinphils 0.1 thou/uL (0.0-0.7); #Lymphocytes 1.1 thou/uL (1.20-3.40); #Neutrophils 7.2 thou/uL (1.40-6.50); %Basophils 0.3 % (0.0-1.0); %Eosinophils 1.1 % (0.0-10.0); %Lymphocytes 11.8 % (21.0-51.0); %Neutrophils 75.8 % (42.0-75.0); Hemoglobin 10.1 g/dL (12.0-16.0); Mean Corpuscular HGB CONC 29.1 g/dL (32.0-36.0); Mean Corpuscular Hemoglobin 27.2 pg (27.0-31.0); Mean Corpuscular Volume 93.6 fl (78.0-98.0); Mean Platelet Volume 7.9 fL (7.4-10.4); Platelet Count 288 10x3/uL (130-400); RBC Distribution Width 21.6 % (11.5-14.5); White Blood Cell (WBC) Count 9.5 10x3/uL (4.8-10.8)
[2022-06-05 06:09] LABS: ALT (SGPT) 11 U/L (8-55); AST (SGOT) 12 U/L (5-34); Albumin 3.1 g/dL (3.5-5.0); Alkaline Phosphatase 82 U/L (40-110); Anion Gap 11 mmol/L (10-20); BUN (Urea Nitrogen) 16 mg/dL (9.8-20.1); Bilirubin, Total Less than 0.2 mg/dL (0.2-1.2); Calc. Creatinine Clearance 68 mL/min (70-130); Calcium 8.5 mg/dL (7.8-10.44); Carbon Dioxide 24 mmol/L (22-29); Chloride 105 mmol/L (98-107); Estimated GFR 81; Globulin 2.8 g/dL (2.4-3.5); Glucose 186 mg/dL (70-105); Potassium 3.8 mmol/L (3.5-5.1); Protein, Total 5.9 g/dL (6.0-8.3); Sodium 136 mmol/L (136-145)
[2022-06-05] MEDS: Ipratropium/Albuterol 3 ML NEB NEB SCH ×2 (06:57→13:23)
[2022-06-05] MEDS: busPIRone HCl 10 MG TAB PO SCH (10:28)
[2022-06-05] MEDS: guaiFENesin ER 600 MG TAB PO SCH (10:28)
[2022-06-05] MEDS: Folic Acid 1 MG TAB PO SCH (10:28)
[2022-06-05] MEDS: Amlodipine 5 MG TAB PO SCH (10:28)
[2022-06-05] MEDS: Bupropion 150 MG XL TAB PO SCH (10:28)
[2022-06-05] MEDS: Lisinopril/Hydrochlorothiazide 10 mg/12.5 mg Tablet PO SCH (10:29)
[2022-06-05] MEDS: INSULIN DEGLUDEC SC SCH (11:03)
[2022-06-05] MEDS: Mycophenolate 250 MG CAP PO SCH ×2 (11:03→11:10)
[2022-06-05] MEDS: LIRAGLUTIDE SC SCH (11:03)
[2022-06-05] MEDS: Buprenorphine Hcl [Belbuca] 150 MCG Film SL SCH (11:04)
[2022-06-05 12:43] VITALS: BP 141/73; TEMP 97.3
== END 2022-06-05 17:04 | disposition home or self-care (01) | DRG 189 ==
LOC: ERS 17:35 → 2SW 20:05 → OBSVTOIN 06-05 14:50
PROVIDERS: ADMIT Student in an Organized Health Care Education/Training Program; ATTEND Student in an Organized Health Care Education/Training Program
DX: J96.21 Acute and chronic respiratory failure with hypoxia (principal); J84.9 Interstitial pulmonary disease, unspecified; M34.81 Systemic sclerosis with lung involvement; B34.9 Viral infection, unspecified; T78.40XA Allergy, unspecified, initial encounter; Z20.822 Contact with and (suspected) exposure to COVID-19; M34.1 CR(E)ST syndrome; I10 Essential (primary) hypertension; E11.9 Type 2 diabetes mellitus without complications; I25.10 Atherosclerotic heart disease of native coronary artery without angina pectoris; F32.A Depression, unspecified; F41.9 Anxiety disorder, unspecified; K21.9 Gastro-esophageal reflux disease without esophagitis; D64.9 Anemia, unspecified; Z87.442 Personal history of urinary calculi; Z95.5 Presence of coronary angioplasty implant and graft; Z99.81 Dependence on supplemental oxygen; Z79.899 Other long term (current) drug therapy; Z79.4 Long term (current) use of insulin; Z82.49 Family history of ischemic heart disease and other diseases of the circulatory system; Z87.891 Personal history of nicotine dependence
CPT/HCPCS: 36415; 36416; 71045; 80053; 83880; 84484; 85025; 87081; 87430; 93005; 94640; 96372; 96374; G0378; J1650; J1815; J2405; J7512; J7517; J7620

== ENCOUNTER 2022-09-08 11:55 | Day surgery (SDC) | payer MEDICARE, MEDICAID ==
[2022-09-06 12:25] VITALS: BMI 22.6
[2022-09-08] MEDS ORDERED: PROPOFOL 200 MG/20 ML VIAL ONE (12:57)
[2022-09-08] MEDS ORDERED: Lidocaine 1% PF 5 ML VIAL ONE (12:57)
[2022-09-08] MEDS ORDERED: Ipratropium/Albuterol 3 ML NEB ONE (13:40)
[2022-09-08] MEDS ORDERED: Morphine 2 MG/ML VIAL ONE (14:47)
== END 2022-09-08 15:00 | disposition home or self-care (01) ==
LOC: SDC 11:55
PROVIDERS: ATTEND Internal Medicine Gastroenterology
PROC: 0DB58ZX Excision of Esophagus, Via Natural or Artificial Opening Endoscopic, Diagnostic (ICD-10-PCS; principal; 2022-09-08)
DX: K22.10 Ulcer of esophagus without bleeding (principal); K29.50 Unspecified chronic gastritis without bleeding; K21.00 Gastro-esophageal reflux disease with esophagitis, without bleeding; M34.9 Systemic sclerosis, unspecified; K44.9 Diaphragmatic hernia without obstruction or gangrene; D50.9 Iron deficiency anemia, unspecified; Z79.899 Other long term (current) drug therapy
CPT/HCPCS: 36416; 88305; J2272; J2704; J7620

== ENCOUNTER 2022-10-27 21:40 | Inpatient (IN) | payer MEDICARE, MEDICAID ==
[2022-10-28 00:42] VITALS: BMI 22.7
[2022-10-28] MEDS ORDERED: HYDROcodone/Acetaminophen 10/325 mg Tablet PO SCH (00:59)
[2022-10-28] MEDS ORDERED: HumaLOG 300 UNITS/3 ML VIAL SC PRN (01:01)
[2022-10-28] MEDS ORDERED: Dextrose 50% Abboject 50 ML SYRINGE SLOW IVP PRN (01:01)
[2022-10-28] MEDS ORDERED: Dextrose 5% in Water 1,000 ML IV PRN (01:01)
[2022-10-28] MEDS ORDERED: Glucagon 1 MG/ML KIT IM PRN (01:01)
[2022-10-28] MEDS ORDERED: traZODone HCl 50 MG TAB PO SCH (02:15)
[2022-10-28] MEDS: Cefepime 1 GM in Sodium Chloride 0.9% 100 ML IVPB SCH ×2 (03:45→15:01)
[2022-10-28] MEDS: Vancomycin HCl 750 MG in Sodium Chloride 0.9% 250 ML 250 ML IVPB SCH ×2 (05:50→17:53)
[2022-10-28 06:56] LABS: #Eosinphils 0.3 thou/uL (0.0-0.7); #Monocytes 0.7 thou/uL (0.11-0.59); #Neutrophils 3.8 thou/uL (1.40-6.50); %Basophils 0.5 % (0.0-1.0); %Eosinophils 5.5 % (0.0-10.0); %Lymphocytes 20.7 % (21.0-51.0); %Monocytes 11.1 % (0.0-10.0); Hematocrit 33.1 % (36.0-47.0); Hemoglobin 9.8 g/dL (12.0-16.0); Mean Corpuscular HGB CONC 29.6 g/dL (32.0-36.0); Mean Corpuscular Hemoglobin 28.8 pg (27.0-31.0); Mean Corpuscular Volume 97.4 fl (78.0-98.0); Mean Platelet Volume 10.3 fL (7.4-10.4); Platelet Count 226 10x3/uL (130-400); RBC Distribution Width 13.6 % (11.5-14.5); White Blood Cell (WBC) Count 6.2 10x3/uL (4.8-10.8)
[2022-10-28 07:24] LABS: Anion Gap 9 mmol/L (10-20); BUN (Urea Nitrogen) 18 mg/dL (9.8-20.1); Calc. Creatinine Clearance 72 mL/min (70-130); Calcium 8.5 mg/dL (7.8-10.44); Carbon Dioxide 27 mmol/L (22-29); Chloride 107 mmol/L (98-107); Estimated GFR 90; Glucose 100 mg/dL (70-105); Potassium 3.6 mmol/L (3.5-5.1); Sodium 139 mmol/L (136-145)
[2022-10-28] MEDS ORDERED: Cefepime 1 GM in Sodium Chloride 0.9% 100 ML IVPB SCH (09:00)
[2022-10-28] MEDS: busPIRone HCl 10 MG TAB PO SCH ×2 (09:20→21:58)
[2022-10-28] MEDS: Mycophenolate 250 MG CAP PO SCH ×2 (09:20→21:58)
[2022-10-28] MEDS: BuPROPion XL 150 MG ER.TAB PO SCH (09:20)
[2022-10-28] MEDS: Amlodipine 5 MG TAB PO SCH (09:21)
[2022-10-28] MEDS: Folic Acid 1 MG TAB PO SCH (09:21)
[2022-10-28] MEDS: Lisinopril/Hydrochlorothiazide 20 mg/12.5 mg Tablet PO SCH (09:22)
[2022-10-28] MEDS: Pantoprazole 40 MG VIAL IVP SCH ×2 (09:24→21:59)
[2022-10-28] MEDS: HYDROcodone/Acetaminophen 10/325 mg Tablet PO PRN ×3 (09:30→21:59)
[2022-10-28] MEDS: Ipratropium/Albuterol 3 ML NEB NEB PRN (11:21)
[2022-10-28] MEDS: Escitalopram Oxalate 20 mg Tablet PO SCH (21:58)
[2022-10-28] MEDS: traZODone HCl 50 MG TAB PO PRN (21:58)
[2022-10-29] MEDS: HYDROcodone/Acetaminophen 10/325 mg Tablet PO PRN ×2 (03:50→09:54)
[2022-10-29] MEDS: Cefepime 1 GM in Sodium Chloride 0.9% 100 ML IVPB SCH ×2 (03:50→15:14)
[2022-10-29 05:27] LABS: #Eosinphils 0.4 thou/uL (0.0-0.7); #Monocytes 0.7 thou/uL (0.11-0.59); #Neutrophils 3.8 thou/uL (1.40-6.50); %Basophils 0.2 % (0.0-1.0); %Eosinophils 6.3 % (0.0-10.0); %Lymphocytes 17.2 % (21.0-51.0); %Monocytes 11.7 % (0.0-10.0); %Neutrophils 64.3 % (42.0-75.0); Hematocrit 34.6 % (36.0-47.0); Hemoglobin 10.4 g/dL (12.0-16.0); Mean Corpuscular HGB CONC 30.1 g/dL (32.0-36.0); Mean Corpuscular Hemoglobin 29.5 pg (27.0-31.0); Mean Corpuscular Volume 98.3 fl (78.0-98.0); Mean Platelet Volume 9.7 fL (7.4-10.4); Platelet Count 216 10x3/uL (130-400); RBC Distribution Width 13.8 % (11.5-14.5); Red Blood Cell (RBC) Count 3.52 mill/uL (4.20-5.40); White Blood Cell (WBC) Count 5.9 10x3/uL (4.8-10.8)
[2022-10-29 05:45] LABS: Anion Gap 9 mmol/L (10-20); BUN (Urea Nitrogen) 15 mg/dL (9.8-20.1); Calc. Creatinine Clearance 71 mL/min (70-130); Calcium 8.6 mg/dL (7.8-10.44); Carbon Dioxide 25 mmol/L (22-29); Chloride 107 mmol/L (98-107); Estimated GFR 89; Glucose 117 mg/dL (70-105); Potassium 3.8 mmol/L (3.5-5.1); Sodium 137 mmol/L (136-145)
[2022-10-29 05:46] LABS: Vancomycin, Trough 12.3 ug/mL
[2022-10-29] MEDS: Vancomycin HCl 750 MG in Sodium Chloride 0.9% 250 ML 250 ML IVPB SCH ×2 (06:31→18:48)
[2022-10-29] MEDS: Pantoprazole 40 MG VIAL IVP SCH ×2 (09:55→20:03)
[2022-10-29] MEDS: Lisinopril/Hydrochlorothiazide 20 mg/12.5 mg Tablet PO SCH (09:56)
[2022-10-29] MEDS: Amlodipine 5 MG TAB PO SCH (09:56)
[2022-10-29] MEDS: busPIRone HCl 10 MG TAB PO SCH ×2 (09:56→20:03)
[2022-10-29] MEDS: Folic Acid 1 MG TAB PO SCH (09:56)
[2022-10-29] MEDS: Mycophenolate 250 MG CAP PO SCH ×2 (09:56→20:03)
[2022-10-29] MEDS: BuPROPion XL 150 MG ER.TAB PO SCH (09:56)
[2022-10-29] MEDS: Ketorolac Tromethamine 30 MG/ML VIAL IVP PRN ×2 (12:09→18:52)
[2022-10-29] MEDS ORDERED: HumaLOG 300 UNITS/3 ML VIAL SC PRN (14:40)
[2022-10-29] MEDS: HYDROcodone/Acetaminophen 5/325 mg Tablet PO PRN ×2 (15:12→20:34)
[2022-10-29] MEDS: Escitalopram Oxalate 20 mg Tablet PO SCH (20:03)
[2022-10-29] MEDS: traZODone HCl 50 MG TAB PO PRN (23:58)
[2022-10-30] MEDS: Cefepime 1 GM in Sodium Chloride 0.9% 100 ML IVPB SCH ×2 (02:54→15:23)
[2022-10-30] MEDS: HYDROcodone/Acetaminophen 5/325 mg Tablet PO PRN ×4 (03:49→20:23)
[2022-10-30] MEDS: Vancomycin HCl 750 MG in Sodium Chloride 0.9% 250 ML 250 ML IVPB SCH ×2 (05:09→17:53)
[2022-10-30 06:59] LABS: #Eosinphils 0.4 thou/uL (0.0-0.7); #Monocytes 0.8 thou/uL (0.11-0.59); #Neutrophils 4.5 thou/uL (1.40-6.50); %Basophils 0.3 % (0.0-1.0); %Eosinophils 5.5 % (0.0-10.0); %Lymphocytes 20.8 % (21.0-51.0); %Monocytes 10.7 % (0.0-10.0); %Neutrophils 62.4 % (42.0-75.0); Hematocrit 37.7 % (36.0-47.0); Hemoglobin 11.5 g/dL (12.0-16.0); Mean Corpuscular HGB CONC 30.5 g/dL (32.0-36.0); Mean Corpuscular Hemoglobin 29.6 pg (27.0-31.0); Mean Corpuscular Volume 97.2 fl (78.0-98.0); Mean Platelet Volume 9.6 fL (7.4-10.4); Platelet Count 229 10x3/uL (130-400); RBC Distribution Width 13.7 % (11.5-14.5); Red Blood Cell (RBC) Count 3.88 mill/uL (4.20-5.40); White Blood Cell (WBC) Count 7.3 10x3/uL (4.8-10.8)
[2022-10-30 07:23] LABS: Anion Gap 12 mmol/L (10-20); BUN (Urea Nitrogen) 15 mg/dL (9.8-20.1); CRP (Inflammatory) 6.62 mg/dL (= or < 0.5); Calc. Creatinine Clearance 76 mL/min (70-130); Calcium 8.8 mg/dL (7.8-10.44); Carbon Dioxide 26 mmol/L (22-29); Chloride 105 mmol/L (98-107); Estimated GFR 96; Glucose 125 mg/dL (70-105); Potassium 4.2 mmol/L (3.5-5.1); Sodium 139 mmol/L (136-145)
[2022-10-30] MEDS ORDERED: Polyethylene Glycol 3350 17 GM Packet PO PRN (08:42)
[2022-10-30] MEDS ORDERED: Docusate 100 MG CAP PO PRN (08:43)
[2022-10-30] MEDS: Mycophenolate 250 MG CAP PO SCH ×2 (09:28→20:05)
[2022-10-30] MEDS: Lisinopril/Hydrochlorothiazide 20 mg/12.5 mg Tablet PO SCH (09:29)
[2022-10-30] MEDS: BuPROPion XL 150 MG ER.TAB PO SCH (09:29)
[2022-10-30] MEDS: Pantoprazole 40 MG VIAL IVP SCH ×2 (09:29→20:05)
[2022-10-30] MEDS: Ketorolac Tromethamine 30 MG/ML VIAL IVP PRN ×2 (09:29→15:24)
[2022-10-30] MEDS: Folic Acid 1 MG TAB PO SCH (09:30)
[2022-10-30] MEDS: Amlodipine 5 MG TAB PO SCH (09:30)
[2022-10-30] MEDS: busPIRone HCl 10 MG TAB PO SCH ×2 (09:30→20:05)
[2022-10-30] MEDS: Ipratropium/Albuterol 3 ML NEB NEB PRN ×2 (17:15→22:45)
[2022-10-30 17:20] LABS: Vancomycin, Trough 17.2 ug/mL
[2022-10-30] MEDS: Escitalopram Oxalate 20 mg Tablet PO SCH (20:05)
[2022-10-31] MEDS: traZODone HCl 50 MG TAB PO PRN ×2 (00:05→23:14)
[2022-10-31] MEDS: Ketorolac Tromethamine 30 MG/ML VIAL IVP PRN ×4 (00:06→20:36)
[2022-10-31] MEDS: Cefepime 1 GM in Sodium Chloride 0.9% 100 ML IVPB SCH ×2 (02:58→16:55)
[2022-10-31] MEDS: HYDROcodone/Acetaminophen 5/325 mg Tablet PO PRN ×4 (03:47→23:14)
[2022-10-31] MEDS: Vancomycin HCl 750 MG in Sodium Chloride 0.9% 250 ML 250 ML IVPB SCH ×2 (06:05→18:06)
[2022-10-31] MEDS: Ipratropium/Albuterol 3 ML NEB NEB PRN (06:13)
[2022-10-31 06:35] LABS: #Eosinphils 0.3 thou/uL (0.0-0.7); #Monocytes 0.7 thou/uL (0.11-0.59); #Neutrophils 3.8 thou/uL (1.40-6.50); %Basophils 0.3 % (0.0-1.0); %Eosinophils 4.6 % (0.0-10.0); %Lymphocytes 25.5 % (21.0-51.0); %Monocytes 11.1 % (0.0-10.0); %Neutrophils 58.3 % (42.0-75.0); Hematocrit 35.8 % (36.0-47.0); Mean Corpuscular HGB CONC 30.7 g/dL (32.0-36.0); Mean Corpuscular Hemoglobin 29.5 pg (27.0-31.0); Mean Platelet Volume 9.5 fL (7.4-10.4); Platelet Count 248 10x3/uL (130-400); RBC Distribution Width 13.6 % (11.5-14.5); Red Blood Cell (RBC) Count 3.73 mill/uL (4.20-5.40); White Blood Cell (WBC) Count 6.5 10x3/uL (4.8-10.8)
[2022-10-31 07:03] LABS: Anion Gap 13 mmol/L (10-20); BUN (Urea Nitrogen) 15 mg/dL (9.8-20.1); Calc. Creatinine Clearance 74 mL/min (70-130); Carbon Dioxide 26 mmol/L (22-29); Chloride 101 mmol/L (98-107); Estimated GFR 93; Glucose 134 mg/dL (70-105); Potassium 3.5 mmol/L (3.5-5.1); Sodium 136 mmol/L (136-145)
[2022-10-31] MEDS: Amlodipine 5 MG TAB PO SCH (09:39)
[2022-10-31] MEDS: busPIRone HCl 10 MG TAB PO SCH ×2 (09:39→20:36)
[2022-10-31] MEDS: BuPROPion XL 150 MG ER.TAB PO SCH (09:39)
[2022-10-31] MEDS: Folic Acid 1 MG TAB PO SCH (09:39)
[2022-10-31] MEDS: Lisinopril/Hydrochlorothiazide 20 mg/12.5 mg Tablet PO SCH (09:40)
[2022-10-31] MEDS: Pantoprazole 40 MG VIAL IVP SCH ×2 (09:40→20:36)
[2022-10-31] MEDS: Mycophenolate 250 MG CAP PO SCH ×2 (09:40→20:37)
[2022-10-31] MEDS ORDERED: metFORMIN 500 MG TAB PO SCH (17:00)
[2022-10-31] MEDS: Escitalopram Oxalate 20 mg Tablet PO SCH (20:37)
[2022-11-01] MEDS: HYDROcodone/Acetaminophen 5/325 mg Tablet PO PRN ×3 (03:02→17:18)
[2022-11-01] MEDS: Cefepime 1 GM in Sodium Chloride 0.9% 100 ML IVPB SCH ×2 (03:02→15:29)
[2022-11-01 05:06] LABS: #Eosinphils 0.4 thou/uL (0.0-0.7); #Monocytes 0.7 thou/uL (0.11-0.59); #Neutrophils 3.4 thou/uL (1.40-6.50); %Basophils 0.5 % (0.0-1.0); %Eosinophils 5.8 % (0.0-10.0); %Lymphocytes 27.2 % (21.0-51.0); %Monocytes 11.9 % (0.0-10.0); %Neutrophils 54.3 % (42.0-75.0); Hematocrit 36.7 % (36.0-47.0); Hemoglobin 11.2 g/dL (12.0-16.0); Mean Corpuscular HGB CONC 30.5 g/dL (32.0-36.0); Mean Corpuscular Hemoglobin 29.6 pg (27.0-31.0); Mean Corpuscular Volume 96.8 fl (78.0-98.0); Mean Platelet Volume 9.6 fL (7.4-10.4); Platelet Count 246 10x3/uL (130-400); RBC Distribution Width 13.7 % (11.5-14.5); Red Blood Cell (RBC) Count 3.79 mill/uL (4.20-5.40); White Blood Cell (WBC) Count 6.2 10x3/uL (4.8-10.8)
[2022-11-01 05:28] LABS: Anion Gap 9 mmol/L (10-20); BUN (Urea Nitrogen) 15 mg/dL (9.8-20.1); Calc. Creatinine Clearance 73 mL/min (70-130); Calcium 8.7 mg/dL (7.8-10.44); Carbon Dioxide 28 mmol/L (22-29); Chloride 102 mmol/L (98-107); Estimated GFR 91; Glucose 138 mg/dL (70-105); Potassium 3.8 mmol/L (3.5-5.1); Sodium 135 mmol/L (136-145); Vancomycin, Trough 17.6 ug/mL
[2022-11-01] MEDS: Vancomycin HCl 750 MG in Sodium Chloride 0.9% 250 ML 250 ML IVPB SCH ×2 (05:40→17:18)
[2022-11-01] MEDS: Pantoprazole 40 MG VIAL IVP SCH ×2 (08:14→20:20)
[2022-11-01] MEDS: busPIRone HCl 10 MG TAB PO SCH ×2 (09:13→20:19)
[2022-11-01] MEDS: Mycophenolate 250 MG CAP PO SCH ×2 (09:14→20:18)
[2022-11-01] MEDS: Ketorolac Tromethamine 30 MG/ML VIAL IVP PRN ×2 (12:43→20:26)
[2022-11-01] MEDS: Amlodipine 5 MG TAB PO SCH (13:05)
[2022-11-01] MEDS: Lisinopril/Hydrochlorothiazide 20 mg/12.5 mg Tablet PO SCH (17:17)
[2022-11-01] MEDS: BuPROPion XL 150 MG ER.TAB PO SCH (17:17)
[2022-11-01] MEDS: Folic Acid 1 MG TAB PO SCH (17:17)
[2022-11-01] MEDS: Escitalopram Oxalate 20 mg Tablet PO SCH (20:18)
[2022-11-01] MEDS: traZODone HCl 50 MG TAB PO PRN (22:23)
[2022-11-02] MEDS: Cefepime 1 GM in Sodium Chloride 0.9% 100 ML IVPB SCH ×2 (03:29→15:26)
[2022-11-02] MEDS: HYDROcodone/Acetaminophen 5/325 mg Tablet PO PRN ×4 (03:30→20:26)
[2022-11-02] MEDS: Vancomycin HCl 750 MG in Sodium Chloride 0.9% 250 ML 250 ML IVPB SCH ×2 (05:35→18:59)
[2022-11-02 06:39] LABS: #Eosinphils 0.5 thou/uL (0.0-0.7); #Monocytes 0.9 thou/uL (0.11-0.59); #Neutrophils 4.1 thou/uL (1.40-6.50); %Basophils 0.4 % (0.0-1.0); %Eosinophils 6.7 % (0.0-10.0); %Lymphocytes 20.6 % (21.0-51.0); %Monocytes 12.6 % (0.0-10.0); %Neutrophils 59.4 % (42.0-75.0); Hematocrit 37.1 % (36.0-47.0); Hemoglobin 11.3 g/dL (12.0-16.0); Mean Corpuscular HGB CONC 30.5 g/dL (32.0-36.0); Mean Corpuscular Volume 95.1 fl (78.0-98.0); Mean Platelet Volume 9.5 fL (7.4-10.4); Platelet Count 320 10x3/uL (130-400); RBC Distribution Width 13.8 % (11.5-14.5); White Blood Cell (WBC) Count 6.8 10x3/uL (4.8-10.8)
[2022-11-02 07:02] LABS: Anion Gap 11 mmol/L (10-20); BUN (Urea Nitrogen) 16 mg/dL (9.8-20.1); Calc. Creatinine Clearance 72 mL/min (70-130); Calcium 9.1 mg/dL (7.8-10.44); Carbon Dioxide 28 mmol/L (22-29); Chloride 101 mmol/L (98-107); Estimated GFR 90; Glucose 136 mg/dL (70-105); Potassium 3.9 mmol/L (3.5-5.1); Sodium 136 mmol/L (136-145)
[2022-11-02] MEDS: Mycophenolate 250 MG CAP PO SCH ×2 (08:33→20:27)
[2022-11-02] MEDS: busPIRone HCl 10 MG TAB PO SCH ×2 (08:33→20:28)
[2022-11-02] MEDS: Lisinopril/Hydrochlorothiazide 20 mg/12.5 mg Tablet PO SCH (08:33)
[2022-11-02] MEDS: Folic Acid 1 MG TAB PO SCH (08:34)
[2022-11-02] MEDS: Amlodipine 5 MG TAB PO SCH (08:34)
[2022-11-02] MEDS: BuPROPion XL 150 MG ER.TAB PO SCH (08:34)
[2022-11-02] MEDS: Pantoprazole 40 MG VIAL IVP SCH ×2 (08:35→20:20)
[2022-11-02] MEDS: metFORMIN XR 500 MG ER.TAB PO SCH (08:35)
[2022-11-02] MEDS: Ipratropium/Albuterol 3 ML NEB NEB PRN (12:48)
[2022-11-02] MEDS: Ketorolac Tromethamine 30 MG/ML VIAL IVP PRN ×2 (14:47→20:24)
[2022-11-02] MEDS: Ondansetron PF 4 MG/2 ML Vial IVP PRN (15:23)
[2022-11-02] MEDS ORDERED: Bupivacaine PF 0.5% 30 ML VIAL ONE (15:34)
[2022-11-02] MEDS ORDERED: EPINEPHrine 1 MG/ML AMP ONE (15:34)
[2022-11-02] MEDS ORDERED: Bupivacaine 0.25% HCL 30 ML VIAL ONE (15:34)
[2022-11-02] MEDS ORDERED: Lidocaine 2% PF 5 ML VIAL ONE (15:47)
[2022-11-02] MEDS ORDERED: fentaNYL PF 100 MCG/2 ML SYRINGE ONE (15:57)
[2022-11-02] MEDS ORDERED: SUGAMMADEX SODIUM 200 MG/2 ML VIAL ONE (15:57)
[2022-11-02] MEDS ORDERED: Vancomycin 1 GM VIAL ONE (16:09)
[2022-11-02] MEDS ORDERED: Bacitracin Zinc Ointment 30 gm TUBE ONE (16:09)
[2022-11-02] MEDS ORDERED: Ondansetron PF 4 MG/2 ML Vial ONE (16:24)
[2022-11-02] MEDS ORDERED: ePHEDrine Sulfate 50 MG/10 ML VIAL ONE (16:24)
[2022-11-02] MEDS ORDERED: PROPOFOL 200 MG/20 ML VIAL ONE (16:24)
[2022-11-02] MEDS ORDERED: Lidocaine 1% PF 5 ML VIAL ONE (16:24)
[2022-11-02] MEDS ORDERED: HYDROmorphone 2 MG/ML VIAL SLOW IVP PRN (17:31)
[2022-11-02] MEDS ORDERED: Meperidine HCl/PF 25 MG/ML VIAL SLOW IVP PRN (17:31)
[2022-11-02] MEDS ORDERED: Morphine Sulfate 2 MG/ML SYRINGE SLOW IVP PRN (17:31)
[2022-11-02] MEDS ORDERED: Promethazine HCl 25 MG/ML VIAL IM PRN (17:31)
[2022-11-02] MEDS ORDERED: Ondansetron HCl/PF 4 MG/2 ML Vial IVP PRN (17:31)
[2022-11-02] MEDS ORDERED: fentaNYL 50 mcg/mL 1 mL Vial ONE (17:33)
[2022-11-02] MEDS: Escitalopram Oxalate 20 mg Tablet PO SCH (20:29)
[2022-11-02] MEDS: traZODone HCl 50 MG TAB PO PRN (23:31)
[2022-11-03] MEDS: HYDROcodone/Acetaminophen 5/325 mg Tablet PO PRN ×5 (00:17→19:20)
[2022-11-03] MEDS: Cefepime 1 GM in Sodium Chloride 0.9% 100 ML IVPB SCH ×2 (02:37→14:29)
[2022-11-03 05:18] LABS: #Eosinphils 0.3 thou/uL (0.0-0.7); #Monocytes 0.8 thou/uL (0.11-0.59); #Neutrophils 4.5 thou/uL (1.40-6.50); %Basophils 0.4 % (0.0-1.0); %Eosinophils 4.4 % (0.0-10.0); %Lymphocytes 19.8 % (21.0-51.0); %Monocytes 10.8 % (0.0-10.0); %Neutrophils 64.3 % (42.0-75.0); Hematocrit 34.9 % (36.0-47.0); Hemoglobin 10.8 g/dL (12.0-16.0); Mean Corpuscular HGB CONC 30.9 g/dL (32.0-36.0); Mean Corpuscular Volume 96.9 fl (78.0-98.0); Mean Platelet Volume 9.4 fL (7.4-10.4); Platelet Count 316 10x3/uL (130-400); RBC Distribution Width 13.6 % (11.5-14.5); White Blood Cell (WBC) Count 7.1 10x3/uL (4.8-10.8)
[2022-11-03] MEDS: Ketorolac Tromethamine 30 MG/ML VIAL IVP PRN ×2 (05:39→14:20)
[2022-11-03] MEDS: Vancomycin HCl 750 MG in Sodium Chloride 0.9% 250 ML 250 ML IVPB SCH ×2 (05:40→17:50)
[2022-11-03 05:52] LABS: Anion Gap 9 mmol/L (10-20); BUN (Urea Nitrogen) 17 mg/dL (9.8-20.1); Calc. Creatinine Clearance 68 mL/min (70-130); Calcium 8.8 mg/dL (7.8-10.44); Carbon Dioxide 30 mmol/L (22-29); Chloride 101 mmol/L (98-107); Estimated GFR 84; Glucose 191 mg/dL (70-105); Potassium 3.7 mmol/L (3.5-5.1); Sodium 136 mmol/L (136-145)
[2022-11-03] MEDS: busPIRone HCl 10 MG TAB PO SCH ×2 (08:56→20:24)
[2022-11-03] MEDS: BuPROPion XL 150 MG ER.TAB PO SCH (08:56)
[2022-11-03] MEDS: Amlodipine 5 MG TAB PO SCH (08:57)
[2022-11-03] MEDS: Lisinopril/Hydrochlorothiazide 20 mg/12.5 mg Tablet PO SCH (08:57)
[2022-11-03] MEDS: Folic Acid 1 MG TAB PO SCH (08:57)
[2022-11-03] MEDS: Mycophenolate 250 MG CAP PO SCH ×2 (08:57→20:24)
[2022-11-03] MEDS: Pantoprazole 40 MG VIAL IVP SCH ×2 (08:58→20:26)
[2022-11-03] MEDS ORDERED: Loratadine 10 MG TAB PO SCH (10:00)
[2022-11-03] MEDS ORDERED: Ketorolac Tromethamine 30 MG/ML VIAL IVP SCH (14:00)
[2022-11-03] MEDS: Escitalopram Oxalate 20 mg Tablet PO SCH (20:24)
[2022-11-03] MEDS: metroNIDAZOLE 500 MG TAB PO SCH (20:34)
[2022-11-03] MEDS: Ondansetron PF 4 MG/2 ML Vial IVP PRN (22:28)
[2022-11-04] MEDS: Ketorolac Tromethamine 30 MG/ML VIAL IVP PRN ×3 (00:17→14:48)
[2022-11-04] MEDS: Cefepime 1 GM in Sodium Chloride 0.9% 100 ML IVPB SCH ×2 (02:30→14:02)
[2022-11-04] MEDS: HYDROcodone/Acetaminophen 5/325 mg Tablet PO PRN ×3 (02:47→17:32)
[2022-11-04] MEDS: Vancomycin HCl 750 MG in Sodium Chloride 0.9% 250 ML 250 ML IVPB SCH ×2 (06:46→17:33)
[2022-11-04 06:54] LABS: #Eosinphils 0.3 thou/uL (0.0-0.7); #Monocytes 0.7 thou/uL (0.11-0.59); #Neutrophils 3.6 thou/uL (1.40-6.50); %Basophils 0.5 % (0.0-1.0); %Eosinophils 4.6 % (0.0-10.0); %Monocytes 11.2 % (0.0-10.0); %Neutrophils 59.4 % (42.0-75.0); Hematocrit 37.4 % (36.0-47.0); Hemoglobin 11.5 g/dL (12.0-16.0); Mean Corpuscular HGB CONC 30.7 g/dL (32.0-36.0); Mean Corpuscular Hemoglobin 29.4 pg (27.0-31.0); Mean Corpuscular Volume 95.7 fl (78.0-98.0); Mean Platelet Volume 9.1 fL (7.4-10.4); Platelet Count 324 10x3/uL (130-400); RBC Distribution Width 13.5 % (11.5-14.5); Red Blood Cell (RBC) Count 3.91 mill/uL (4.20-5.40); White Blood Cell (WBC) Count 6.1 10x3/uL (4.8-10.8)
[2022-11-04 07:28] LABS: Anion Gap 12 mmol/L (10-20); BUN (Urea Nitrogen) 14 mg/dL (9.8-20.1); Calc. Creatinine Clearance 75 mL/min (70-130); Calcium 9.3 mg/dL (7.8-10.44); Carbon Dioxide 27 mmol/L (22-29); Chloride 98 mmol/L (98-107); Estimated GFR 94; Glucose 104 mg/dL (70-105); Potassium 3.8 mmol/L (3.5-5.1); Sodium 133 mmol/L (136-145)
[2022-11-04] MEDS: Ondansetron PF 4 MG/2 ML Vial IVP PRN (08:24)
[2022-11-04] MEDS: Lisinopril/Hydrochlorothiazide 20 mg/12.5 mg Tablet PO SCH (08:54)
[2022-11-04] MEDS: Mycophenolate 250 MG CAP PO SCH ×2 (08:54→20:49)
[2022-11-04] MEDS: metFORMIN XR 500 MG ER.TAB PO SCH (08:54)
[2022-11-04] MEDS: metroNIDAZOLE 500 MG TAB PO SCH ×3 (08:56→20:49)
[2022-11-04] MEDS: Amlodipine 5 MG TAB PO SCH (08:56)
[2022-11-04] MEDS: Folic Acid 1 MG TAB PO SCH (08:56)
[2022-11-04] MEDS: busPIRone HCl 10 MG TAB PO SCH ×2 (08:57→20:49)
[2022-11-04] MEDS: Loratadine 10 MG TAB PO SCH (08:57)
[2022-11-04] MEDS: Pantoprazole 40 MG VIAL IVP SCH ×2 (08:57→20:51)
[2022-11-04] MEDS: BuPROPion XL 150 MG ER.TAB PO SCH (09:04)
[2022-11-04] MEDS: hydrALAZINE 20 MG/ML VIAL SLOW IVP PRN (14:03)
[2022-11-04] MEDS: Escitalopram Oxalate 20 mg Tablet PO SCH (20:49)
[2022-11-05] MEDS: Ketorolac Tromethamine 30 MG/ML VIAL IVP PRN (00:05)
[2022-11-05] MEDS: traZODone HCl 50 MG TAB PO PRN (01:45)
[2022-11-05] MEDS: Cefepime 1 GM in Sodium Chloride 0.9% 100 ML IVPB SCH (03:39)
[2022-11-05] MEDS: Vancomycin HCl 750 MG in Sodium Chloride 0.9% 250 ML 250 ML IVPB SCH ×2 (06:26→17:44)
[2022-11-05] MEDS: Lisinopril/Hydrochlorothiazide 20 mg/12.5 mg Tablet PO SCH (09:08)
[2022-11-05] MEDS: Loratadine 10 MG TAB PO SCH (09:09)
[2022-11-05] MEDS: metroNIDAZOLE 500 MG TAB PO SCH ×3 (09:09→21:22)
[2022-11-05] MEDS: Folic Acid 1 MG TAB PO SCH (09:09)
[2022-11-05] MEDS: busPIRone HCl 10 MG TAB PO SCH ×2 (09:09→21:22)
[2022-11-05] MEDS: Amlodipine 5 MG TAB PO SCH (09:09)
[2022-11-05] MEDS: Mycophenolate 250 MG CAP PO SCH ×2 (09:09→21:22)
[2022-11-05] MEDS: BuPROPion XL 150 MG ER.TAB PO SCH (09:09)
[2022-11-05] MEDS: metFORMIN XR 500 MG ER.TAB PO SCH (09:10)
[2022-11-05] MEDS: Pantoprazole 40 MG VIAL IVP SCH ×2 (09:14→21:23)
[2022-11-05 09:15] LABS: #Eosinphils 0.2 thou/uL (0.0-0.7); #Monocytes 0.8 thou/uL (0.11-0.59); #Neutrophils 4.9 thou/uL (1.40-6.50); %Basophils 0.4 % (0.0-1.0); %Eosinophils 3.3 % (0.0-10.0); %Lymphocytes 18.2 % (21.0-51.0); %Monocytes 11.5 % (0.0-10.0); %Neutrophils 66.3 % (42.0-75.0); Hematocrit 37.1 % (36.0-47.0); Hemoglobin 11.2 g/dL (12.0-16.0); Mean Corpuscular HGB CONC 30.2 g/dL (32.0-36.0); Mean Corpuscular Hemoglobin 29.1 pg (27.0-31.0); Mean Corpuscular Volume 96.4 fl (78.0-98.0); Mean Platelet Volume 9.3 fL (7.4-10.4); Platelet Count 362 10x3/uL (130-400); RBC Distribution Width 13.6 % (11.5-14.5); Red Blood Cell (RBC) Count 3.85 mill/uL (4.20-5.40); White Blood Cell (WBC) Count 7.3 10x3/uL (4.8-10.8)
[2022-11-05 09:36] LABS: Anion Gap 12 mmol/L (10-20); BUN (Urea Nitrogen) 17 mg/dL (9.8-20.1); Calc. Creatinine Clearance 69 mL/min (70-130); Carbon Dioxide 26 mmol/L (22-29); Chloride 103 mmol/L (98-107); Estimated GFR 86; Glucose 154 mg/dL (70-105); Sodium 137 mmol/L (136-145)
[2022-11-05] MEDS: HYDROcodone/Acetaminophen 5/325 mg Tablet PO PRN ×2 (10:04→17:44)
[2022-11-05] MEDS ORDERED: Amlodipine 5 MG TAB PO SCH (11:45)
[2022-11-05] MEDS: Ipratropium/Albuterol 3 ML NEB NEB PRN (19:12)
[2022-11-05] MEDS: Escitalopram Oxalate 20 mg Tablet PO SCH (21:22)
[2022-11-06] MEDS: traZODone HCl 50 MG TAB PO PRN ×2 (00:13→22:53)
[2022-11-06] MEDS: Ketorolac Tromethamine 30 MG/ML VIAL IVP PRN ×2 (00:14→12:15)
[2022-11-06] MEDS: Ipratropium/Albuterol 3 ML NEB NEB PRN ×2 (00:44→12:38)
[2022-11-06] MEDS: hydrALAZINE 20 MG/ML VIAL SLOW IVP PRN (01:03)
[2022-11-06 05:20] LABS: #Eosinphils 0.2 thou/uL (0.0-0.7); #Monocytes 0.9 thou/uL (0.11-0.59); #Neutrophils 6.4 thou/uL (1.40-6.50); %Basophils 0.3 % (0.0-1.0); %Eosinophils 2.5 % (0.0-10.0); %Lymphocytes 18.4 % (21.0-51.0); %Monocytes 9.4 % (0.0-10.0); %Neutrophils 69.1 % (42.0-75.0); Hematocrit 34.9 % (36.0-47.0); Hemoglobin 10.7 g/dL (12.0-16.0); Mean Corpuscular HGB CONC 30.7 g/dL (32.0-36.0); Mean Corpuscular Hemoglobin 29.7 pg (27.0-31.0); Mean Corpuscular Volume 96.9 fl (78.0-98.0); Mean Platelet Volume 9.3 fL (7.4-10.4); Platelet Count 379 10x3/uL (130-400); RBC Distribution Width 13.8 % (11.5-14.5); White Blood Cell (WBC) Count 9.2 10x3/uL (4.8-10.8)
[2022-11-06 05:48] LABS: Anion Gap 9 mmol/L (10-20); BUN (Urea Nitrogen) 20 mg/dL (9.8-20.1); Calc. Creatinine Clearance 60 mL/min (70-130); Calcium 8.7 mg/dL (7.8-10.44); Carbon Dioxide 27 mmol/L (22-29); Chloride 105 mmol/L (98-107); Estimated GFR 73; Glucose 173 mg/dL (70-105); Potassium 3.4 mmol/L (3.5-5.1); Sodium 138 mmol/L (136-145)
[2022-11-06] MEDS: Vancomycin HCl 750 MG in Sodium Chloride 0.9% 250 ML 250 ML IVPB SCH (06:18)
[2022-11-06] MEDS ORDERED: Potassium Chloride 20 MEQ TAB PO SCH (09:00)
[2022-11-06] MEDS: Loratadine 10 MG TAB PO SCH (09:46)
[2022-11-06] MEDS: BuPROPion XL 150 MG ER.TAB PO SCH (09:46)
[2022-11-06] MEDS: Amlodipine 10 MG TAB PO SCH (09:46)
[2022-11-06] MEDS: busPIRone HCl 10 MG TAB PO SCH ×2 (09:46→20:09)
[2022-11-06] MEDS: Pantoprazole 40 MG VIAL IVP SCH ×2 (09:47→20:10)
[2022-11-06] MEDS: Lisinopril/Hydrochlorothiazide 20/25 mg Tablet PO SCH (09:47)
[2022-11-06] MEDS: Folic Acid 1 MG TAB PO SCH (09:47)
[2022-11-06] MEDS: metFORMIN XR 500 MG ER.TAB PO SCH (09:47)
[2022-11-06] MEDS: Mycophenolate 250 MG CAP PO SCH ×2 (09:48→20:09)
[2022-11-06] MEDS: HYDROcodone/Acetaminophen 5/325 mg Tablet PO PRN ×2 (09:59→20:10)
[2022-11-06] MEDS: Lisinopril/Hydrochlorothiazide 20 mg/12.5 mg Tablet PO SCH (10:11)
[2022-11-06] MEDS: CEFAZOLIN 2 GM in Sodium Chloride 0.9% 100 ML IVPB SCH ×2 (14:34→21:03)
[2022-11-06] MEDS: Escitalopram Oxalate 20 mg Tablet PO SCH (20:09)
[2022-11-07] MEDS: CEFAZOLIN 2 GM in Sodium Chloride 0.9% 100 ML IVPB SCH ×3 (05:20→21:30)
[2022-11-07 05:53] LABS: #Basophils 0.1 thou/uL (0.0-0.2); #Eosinphils 0.4 thou/uL (0.0-0.7); #Monocytes 0.9 thou/uL (0.11-0.59); #Neutrophils 5.9 thou/uL (1.40-6.50); %Basophils 0.7 % (0.0-1.0); %Eosinophils 4.7 % (0.0-10.0); %Lymphocytes 18.3 % (21.0-51.0); %Monocytes 9.8 % (0.0-10.0); %Neutrophils 66.3 % (42.0-75.0); Hemoglobin 11.7 g/dL (12.0-16.0); Mean Corpuscular HGB CONC 30.8 g/dL (32.0-36.0); Mean Corpuscular Hemoglobin 29.5 pg (27.0-31.0); Mean Platelet Volume 9.3 fL (7.4-10.4); Platelet Count 413 10x3/uL (130-400); RBC Distribution Width 14.1 % (11.5-14.5); Red Blood Cell (RBC) Count 3.96 mill/uL (4.20-5.40); White Blood Cell (WBC) Count 8.9 10x3/uL (4.8-10.8)
[2022-11-07 06:21] LABS: Anion Gap 12 mmol/L (10-20); BUN (Urea Nitrogen) 14 mg/dL (9.8-20.1); Calc. Creatinine Clearance 66 mL/min (70-130); Calcium 9.1 mg/dL (7.8-10.44); Carbon Dioxide 27 mmol/L (22-29); Chloride 106 mmol/L (98-107); Estimated GFR 81; Glucose 80 mg/dL (70-105); Potassium 3.8 mmol/L (3.5-5.1); Sodium 141 mmol/L (136-145)
[2022-11-07] MEDS: HYDROcodone/Acetaminophen 5/325 mg Tablet PO PRN ×4 (06:40→21:29)
[2022-11-07] MEDS: Lisinopril/Hydrochlorothiazide 20/25 mg Tablet PO SCH (09:03)
[2022-11-07] MEDS: Amlodipine 10 MG TAB PO SCH (09:03)
[2022-11-07] MEDS: Folic Acid 1 MG TAB PO SCH (09:03)
[2022-11-07] MEDS: metFORMIN XR 500 MG ER.TAB PO SCH (09:04)
[2022-11-07] MEDS: Loratadine 10 MG TAB PO SCH (09:04)
[2022-11-07] MEDS: BuPROPion XL 150 MG ER.TAB PO SCH (09:04)
[2022-11-07] MEDS: busPIRone HCl 10 MG TAB PO SCH ×2 (09:04→20:26)
[2022-11-07] MEDS: Pantoprazole 40 MG VIAL IVP SCH ×2 (09:05→20:26)
[2022-11-07] MEDS: Mycophenolate 250 MG CAP PO SCH ×2 (09:05→20:26)
[2022-11-07] MEDS: Ipratropium/Albuterol 3 ML NEB NEB PRN ×2 (09:29→18:33)
[2022-11-07] MEDS: Ketorolac Tromethamine 30 MG/ML VIAL IVP PRN ×2 (14:40→22:47)
[2022-11-07] MEDS: guaiFENesin ER 600 MG TAB PO SCH (20:26)
[2022-11-07] MEDS: Escitalopram Oxalate 20 mg Tablet PO SCH (20:26)
[2022-11-07] MEDS: traZODone HCl 50 MG TAB PO PRN (22:48)
[2022-11-08] MEDS: Ketorolac Tromethamine 30 MG/ML VIAL IVP PRN ×2 (05:11→11:09)
[2022-11-08] MEDS: CEFAZOLIN 2 GM in Sodium Chloride 0.9% 100 ML IVPB SCH ×2 (05:12→14:36)
[2022-11-08] MEDS: HYDROcodone/Acetaminophen 5/325 mg Tablet PO PRN ×2 (06:13→11:10)
[2022-11-08 06:51] LABS: #Eosinphils 0.2 thou/uL (0.0-0.7); #Monocytes 0.8 thou/uL (0.11-0.59); #Neutrophils 6.5 thou/uL (1.40-6.50); %Basophils 0.3 % (0.0-1.0); %Eosinophils 2.4 % (0.0-10.0); %Monocytes 9.3 % (0.0-10.0); %Neutrophils 73.8 % (42.0-75.0); Hematocrit 37.4 % (36.0-47.0); Hemoglobin 11.3 g/dL (12.0-16.0); Mean Corpuscular HGB CONC 30.2 g/dL (32.0-36.0); Mean Corpuscular Hemoglobin 29.4 pg (27.0-31.0); Mean Corpuscular Volume 97.1 fl (78.0-98.0); Mean Platelet Volume 9.1 fL (7.4-10.4); Platelet Count 360 10x3/uL (130-400); Red Blood Cell (RBC) Count 3.85 mill/uL (4.20-5.40); White Blood Cell (WBC) Count 8.8 10x3/uL (4.8-10.8)
[2022-11-08 07:28] LABS: Anion Gap 13 mmol/L (10-20); BUN (Urea Nitrogen) 14 mg/dL (9.8-20.1); Calc. Creatinine Clearance 60 mL/min (70-130); Calcium 9.1 mg/dL (7.8-10.44); Carbon Dioxide 24 mmol/L (22-29); Chloride 106 mmol/L (98-107); Estimated GFR 72; Glucose 91 mg/dL (70-105); Potassium 3.6 mmol/L (3.5-5.1); Sodium 139 mmol/L (136-145)
[2022-11-08] MEDS: Amlodipine 10 MG TAB PO SCH (08:56)
[2022-11-08] MEDS: metFORMIN XR 500 MG ER.TAB PO SCH (08:56)
[2022-11-08] MEDS: Lisinopril/Hydrochlorothiazide 20/25 mg Tablet PO SCH (08:57)
[2022-11-08] MEDS: busPIRone HCl 10 MG TAB PO SCH (08:57)
[2022-11-08] MEDS: Pantoprazole 40 MG VIAL IVP SCH (08:57)
[2022-11-08] MEDS: Mycophenolate 250 MG CAP PO SCH (08:57)
[2022-11-08] MEDS: guaiFENesin ER 600 MG TAB PO SCH (08:57)
[2022-11-08] MEDS: Loratadine 10 MG TAB PO SCH (08:57)
[2022-11-08] MEDS: Folic Acid 1 MG TAB PO SCH (08:57)
[2022-11-08] MEDS: BuPROPion XL 150 MG ER.TAB PO SCH (08:57)
[2022-11-08 11:59] VITALS: BP 183/92; TEMP 97.9
== END 2022-11-08 17:26 | disposition home or self-care (01) | DRG 475 ==
LOC: T4-B 23:40 → OBSVTOIN 10-28 00:29
PROVIDERS: ADMIT Emergency Medicine; ATTEND Emergency Medicine
PROC: 0Y6N0Z9 Detachment at Left Foot, Partial 1st Ray, Open Approach (ICD-10-PCS; 2022-11-02)
PROC: 02HV33Z Insertion of Infusion Device into Superior Vena Cava, Percutaneous Approach (ICD-10-PCS; principal; 2022-11-04)
PROC: B5181ZA Fluoroscopy of Superior Vena Cava using Low Osmolar Contrast, Guidance (ICD-10-PCS; 2022-11-04)
PROC: B548ZZA Ultrasonography of Superior Vena Cava, Guidance (ICD-10-PCS; 2022-11-04)
DX: T87.44 Infection of amputation stump, left lower extremity (principal); L03.116 Cellulitis of left lower limb; M86.8X7 Other osteomyelitis, ankle and foot; E11.69 Type 2 diabetes mellitus with other specified complication; E11.628 Type 2 diabetes mellitus with other skin complications; I10 Essential (primary) hypertension; I25.10 Atherosclerotic heart disease of native coronary artery without angina pectoris; F41.9 Anxiety disorder, unspecified; F32.A Depression, unspecified; K21.9 Gastro-esophageal reflux disease without esophagitis; M34.1 CR(E)ST syndrome; J84.10 Pulmonary fibrosis, unspecified; M34.9 Systemic sclerosis, unspecified; E11.649 Type 2 diabetes mellitus with hypoglycemia without coma; Z79.899 Other long term (current) drug therapy; Z95.5 Presence of coronary angioplasty implant and graft; Z79.4 Long term (current) use of insulin; Z98.890 Other specified postprocedural states; Y83.5 Amputation of limb(s) as the cause of abnormal reaction of the patient, or of later complication, without mention of misadventure at the time of the procedure; E11.621 Type 2 diabetes mellitus with foot ulcer; L97.524 Non-pressure chronic ulcer of other part of left foot with necrosis of bone
CPT/HCPCS: 36415; 36416; 36569; 80048; 80202; 85025; 85652; 86140; 87070; 87077; 87186; 87205; 94640; 97139; 97605; C9113; G0277; J0171; J0360; J0692; J1650; J1885; J2001; J2405; J2704; J3010; J3370; J3490; J7050; J7517; J7620; J7999; S0020

== ENCOUNTER 2022-12-12 11:30 | Inpatient (IN) | payer MEDICARE, MEDICAID ==
[~2022-12-12 11:30] MED LIST changes: -Iopamidol-370 76% 500 ML 1 ML ONE; +Iopamidol-370 76% 500 ML MDV (1 ML CHARGE) ONE
[2022-12-12] MEDS ORDERED: Morphine 4 MG/ML VIAL ONE ×3 (12:07→18:15)
[2022-12-12] MEDS ORDERED: Mag-Al 1200 mg/1200 mg/30 ML UDCUP ONE (12:07)
[2022-12-12] MEDS ORDERED: Ondansetron PF 4 MG/2 ML Vial ONE ×2 (12:07→18:15)
[2022-12-12 12:26] LABS: #Basophils 0.1 thou/uL (0.0-0.2); #Eosinphils 0.3 thou/uL (0.0-0.7); #Monocytes 0.7 thou/uL (0.11-0.59); #Neutrophils 9.5 thou/uL (1.40-6.50); %Basophils 0.4 % (0.0-1.0); %Eosinophils 2.6 % (0.0-10.0); %Lymphocytes 6.5 % (21.0-51.0); %Monocytes 6.5 % (0.0-10.0); %Neutrophils 83.7 % (42.0-75.0); Hematocrit 39.6 % (36.0-47.0); Hemoglobin 11.9 g/dL (12.0-16.0); Mean Corpuscular HGB CONC 30.1 g/dL (32.0-36.0); Mean Corpuscular Hemoglobin 30.7 pg (27.0-31.0); Mean Corpuscular Volume 102.3 fl (78.0-98.0); Mean Platelet Volume 10.4 fL (7.4-10.4); Platelet Count 211 10x3/uL (130-400); RBC Distribution Width 17.2 % (11.5-14.5); Red Blood Cell (RBC) Count 3.87 mill/uL (4.20-5.40); White Blood Cell (WBC) Count 11.3 10x3/uL (4.8-10.8)
[2022-12-12 12:43] LABS: ALT (SGPT) Less than 7 U/L (8-55); AST (SGOT) 12 U/L (5-34); Albumin 2.2 g/dL (3.5-5.0); Alkaline Phosphatase 129 U/L (40-110); Anion Gap 11 mmol/L (10-20); BUN (Urea Nitrogen) 24 mg/dL (9.8-20.1); Bilirubin, Total Less than 0.2 mg/dL (0.2-1.2); Calc. Creatinine Clearance 0 mL/min (70-130); Calcium 7.7 mg/dL (7.8-10.44); Carbon Dioxide 26 mmol/L (22-29); Chloride 105 mmol/L (98-107); Estimated GFR 64; Globulin 2.7 g/dL (2.4-3.5); Glucose 94 mg/dL (70-105); Lipase 307 U/L (8-78); Potassium 3.1 mmol/L (3.5-5.1); Protein, Total 4.9 g/dL (6.0-8.3); Sodium 139 mmol/L (136-145)
[2022-12-12 12:47] LABS: Troponin I Less than 0.010 ng/mL (< 0.028)
[2022-12-12] MEDS ORDERED: Ketorolac Tromethamine 30 MG/ML VIAL ONE (13:50)
[2022-12-12] MEDS ORDERED: Acetaminophen 325 MG TAB PO PRN (15:24)
[2022-12-12] MEDS ORDERED: Lactated Ringer's 1,000 ML IV SCH ×3 (15:30→16:11)
[2022-12-12 15:51] LABS: Bilirubin Negative (Negative); Blood, Urine Small (Negative); Glucose, Urine (Dipstick) Negative (Negative); Ketone, Urine Negative (Negative); Leukocyte Negative (Negative); Nitrite Negative (Negative); Protein, Urine (Dipstick) > or equal to 300 mg/dL (Neg-Trace); Specific Gravity, Urine 1.015 (1.005-1.030); Urobilinogen 0.2 mg/dL (Less than 2)
[2022-12-12 15:52] LABS: Clarity Hazy (Clear)
[2022-12-12 15:58] LABS: Bacteria/HPF Rare-Few HPF (None Seen); CAUTI Indications for Culture Pelvic or flank pain; RBC/HPF 0-3 HPF (0-3); Squamous Epithelial 0-3 HPF (0-3); WBC/HPF 0-3 HPF (0-3)
[2022-12-12 16:00] VITALS: BMI 22.6
[2022-12-12 16:00] LABS: Urine Culture Reflex No No
[2022-12-12] MEDS ORDERED: Potassium Chloride 20 MEQ in Premix 1 BAG IVPB SCH (16:45)
[2022-12-12] MEDS ORDERED: Glucagon 1 MG/ML KIT IM PRN (16:58)
[2022-12-12] MEDS ORDERED: Dextrose 5% in Water 1,000 ML IV PRN (16:58)
[2022-12-12] MEDS ORDERED: Dextrose 50% Abboject 50 ML SYRINGE SLOW IVP PRN (16:58)
[2022-12-12] MEDS ORDERED: HumaLOG 300 UNITS/3 ML VIAL SC PRN (17:24)
[2022-12-12] MEDS: Ondansetron ODT 4 MG TAB PO PRN (18:24)
[2022-12-12] MEDS: Morphine 4 MG/ML VIAL SLOW IVP PRN (18:24)
[2022-12-12] MEDS: busPIRone HCl 10 MG TAB PO SCH (20:51)
[2022-12-12] MEDS: Mycophenolate 250 MG CAP PO SCH (20:51)
[2022-12-12] MEDS: traZODone HCl 50 MG TAB PO PRN (20:51)
[2022-12-12] MEDS: Escitalopram Oxalate 20 mg Tablet PO SCH (20:51)
[2022-12-12 21:01] LABS: Anion Gap 8 mmol/L (10-20); BUN (Urea Nitrogen) 23 mg/dL (9.8-20.1); Calc. Creatinine Clearance 62 mL/min (70-130); Calcium 7.3 mg/dL (7.8-10.44); Carbon Dioxide 26 mmol/L (22-29); Chloride 105 mmol/L (98-107); Estimated GFR 76; Glucose 72 mg/dL (70-105); Potassium 3.2 mmol/L (3.5-5.1); Sodium 136 mmol/L (136-145)
[2022-12-12] MEDS: Lactated Ringer's 1,000 ML IV SCH (21:22)
[2022-12-12] MEDS: Morphine 2 MG/ML VIAL SLOW IVP PRN (21:54)
[2022-12-12] MEDS ORDERED: CEFAZOLIN 1 GM VIAL SLOW IVP SCH (22:00)
[2022-12-12] MEDS: CEFAZOLIN 1 GM in Sodium Chloride 0.9% 100 ML IVPB SCH (22:01)
[2022-12-13 05:10] LABS: #Eosinphils 0.3 thou/uL (0.0-0.7); #Monocytes 0.6 thou/uL (0.11-0.59); #Neutrophils 5.6 thou/uL (1.40-6.50); %Basophils 0.3 % (0.0-1.0); %Eosinophils 4.2 % (0.0-10.0); %Lymphocytes 9.7 % (21.0-51.0); %Monocytes 8.3 % (0.0-10.0); %Neutrophils 77.4 % (42.0-75.0); Hemoglobin 13.4 g/dL (12.0-16.0); Mean Corpuscular HGB CONC 29.8 g/dL (32.0-36.0); Mean Corpuscular Hemoglobin 30.2 pg (27.0-31.0); Mean Corpuscular Volume 101.4 fl (78.0-98.0); Mean Platelet Volume 10.7 fL (7.4-10.4); Platelet Count 159 10x3/uL (130-400); RBC Distribution Width 17.1 % (11.5-14.5); Red Blood Cell (RBC) Count 4.44 mill/uL (4.20-5.40); White Blood Cell (WBC) Count 7.2 10x3/uL (4.8-10.8)
[2022-12-13] MEDS ORDERED: Potassium Chloride 20 MEQ TAB PO SCH (05:15)
[2022-12-13] MEDS: Lactated Ringer's 1,000 ML IV SCH ×3 (05:18→18:28)
[2022-12-13] MEDS: Potassium Chloride 20 MEQ in Premix 1 BAG IVPB SCH ×2 (05:39→09:04)
[2022-12-13 05:40] LABS: ALT (SGPT) Less than 7 U/L (8-55); AST (SGOT) 10 U/L (5-34); Alkaline Phosphatase 122 U/L (40-110); Anion Gap 11 mmol/L (10-20); BUN (Urea Nitrogen) 22 mg/dL (9.8-20.1); Bilirubin, Total 0.2 mg/dL (0.2-1.2); Calc. Creatinine Clearance 64 mL/min (70-130); Calcium 7.5 mg/dL (7.8-10.44); Carbon Dioxide 26 mmol/L (22-29); Chloride 106 mmol/L (98-107); Estimated GFR 79; Globulin 2.6 g/dL (2.4-3.5); Glucose 49 mg/dL (70-105); Potassium 3.8 mmol/L (3.5-5.1); Protein, Total 4.6 g/dL (6.0-8.3); Sodium 139 mmol/L (136-145)
[2022-12-13] MEDS: CEFAZOLIN 1 GM in Sodium Chloride 0.9% 100 ML IVPB SCH ×3 (05:41→23:09)
[2022-12-13] MEDS: Morphine 2 MG/ML VIAL SLOW IVP PRN (06:08)
[2022-12-13] MEDS ORDERED: metFORMIN XR 500 MG ER.TAB PO SCH (08:00)
[2022-12-13] MEDS: Ondansetron ODT 4 MG TAB PO PRN (09:03)
[2022-12-13] MEDS: busPIRone HCl 10 MG TAB PO SCH ×2 (09:06→20:23)
[2022-12-13] MEDS: BuPROPion XL 150 MG ER.TAB PO SCH (09:06)
[2022-12-13] MEDS: Loratadine 10 MG TAB PO SCH (09:06)
[2022-12-13] MEDS: Mycophenolate 250 MG CAP PO SCH ×2 (09:06→20:24)
[2022-12-13] MEDS: Folic Acid 1 MG TAB PO SCH (09:06)
[2022-12-13] MEDS: Amlodipine 10 MG TAB PO SCH (09:06)
[2022-12-13] MEDS: Morphine 4 MG/ML VIAL SLOW IVP PRN ×2 (10:12→15:29)
[2022-12-13] MEDS ORDERED: HYDROcodone/Acetaminophen 10/325 mg Tablet PO PRN (10:48)
[2022-12-13] MEDS ORDERED: Polyethylene Glycol 3350 17 GM Packet PO PRN (11:49)
[2022-12-13] MEDS: Lisinopril/Hydrochlorothiazide 20/25 mg Tablet PO SCH (12:04)
[2022-12-13] MEDS: Ondansetron ODT 4 MG TAB PO SCH ×3 (12:13→23:09)
[2022-12-13 14:46] LABS: Anion Gap 13 mmol/L (10-20); BUN (Urea Nitrogen) 21 mg/dL (9.8-20.1); Calc. Creatinine Clearance 58 mL/min (70-130); Calcium 7.7 mg/dL (7.8-10.44); Carbon Dioxide 24 mmol/L (22-29); Chloride 103 mmol/L (98-107); Estimated GFR 69; Glucose 86 mg/dL (70-105); Sodium 135 mmol/L (136-145)
[2022-12-13] MEDS: Escitalopram Oxalate 20 mg Tablet PO SCH (20:23)
[2022-12-13] MEDS: HYDROcodone/Acetaminophen 10/325 mg Tablet PO SCH (20:23)
[2022-12-14] MEDS: Morphine 4 MG/ML VIAL SLOW IVP PRN ×2 (00:25→11:03)
[2022-12-14] MEDS: traZODone HCl 50 MG TAB PO PRN (00:25)
[2022-12-14] MEDS: HYDROcodone/Acetaminophen 10/325 mg Tablet PO SCH ×3 (03:50→21:08)
[2022-12-14] MEDS: CEFAZOLIN 1 GM in Sodium Chloride 0.9% 100 ML IVPB SCH (05:02)
[2022-12-14 05:35] LABS: #Eosinphils 0.3 thou/uL (0.0-0.7); #Monocytes 0.9 thou/uL (0.11-0.59); #Neutrophils 5.8 thou/uL (1.40-6.50); %Basophils 0.4 % (0.0-1.0); %Eosinophils 4.2 % (0.0-10.0); Mean Corpuscular HGB CONC 29.3 g/dL (32.0-36.0); Mean Corpuscular Hemoglobin 30.1 pg (27.0-31.0); Mean Corpuscular Volume 102.9 fl (78.0-98.0); Mean Platelet Volume 10.8 fL (7.4-10.4); Platelet Count 143 10x3/uL (130-400); Red Blood Cell (RBC) Count 3.45 mill/uL (4.20-5.40); White Blood Cell (WBC) Count 8.1 10x3/uL (4.8-10.8)
[2022-12-14 05:53] LABS: Hematocrit 35.5 % (36.0-47.0); Hemoglobin 10.4 g/dL (12.0-16.0)
[2022-12-14] MEDS ORDERED: Lactated Ringer's 1,000 ML IV SCH ×2 (06:15→07:17)
[2022-12-14] MEDS: Ondansetron ODT 4 MG TAB PO SCH ×3 (06:37→21:03)
[2022-12-14 06:58] LABS: ALT (SGPT) Less than 7 U/L (8-55); AST (SGOT) 11 U/L (5-34); Albumin 1.7 g/dL (3.5-5.0); Alkaline Phosphatase 116 U/L (40-110); Anion Gap 9 mmol/L (10-20); BUN (Urea Nitrogen) 23 mg/dL (9.8-20.1); Bilirubin, Total 0.2 mg/dL (0.2-1.2); Calc. Creatinine Clearance 52 mL/min (70-130); Calcium 7.5 mg/dL (7.8-10.44); Carbon Dioxide 26 mmol/L (22-29); Chloride 104 mmol/L (98-107); Estimated GFR 61; Globulin 2.6 g/dL (2.4-3.5); Glucose 101 mg/dL (70-105); Potassium 4.7 mmol/L (3.5-5.1); Protein, Total 4.3 g/dL (6.0-8.3); Sodium 134 mmol/L (136-145)
[2022-12-14] MEDS ORDERED: Bisacodyl 10 MG SUPP PR PRN (07:14)
[2022-12-14] MEDS ORDERED: Senokot 8.6 MG TAB PO SCH (07:15)
[2022-12-14] MEDS ORDERED: Polyethylene Glycol 3350 17 GM Packet PER TUBE SCH (09:00)
[2022-12-14] MEDS: BuPROPion XL 150 MG ER.TAB PO SCH (09:36)
[2022-12-14] MEDS: Amlodipine 10 MG TAB PO SCH (09:39)
[2022-12-14] MEDS: Loratadine 10 MG TAB PO SCH (09:40)
[2022-12-14] MEDS: busPIRone HCl 10 MG TAB PO SCH ×2 (09:40→21:03)
[2022-12-14] MEDS: Lisinopril/Hydrochlorothiazide 20/25 mg Tablet PO SCH (09:40)
[2022-12-14] MEDS: Folic Acid 1 MG TAB PO SCH (09:40)
[2022-12-14] MEDS: Mycophenolate 250 MG CAP PO SCH ×2 (09:41→21:04)
[2022-12-14] MEDS: Polyethylene Glycol 3350 17 GM Packet PER TUBE SCH ×2 (09:43→21:03)
[2022-12-14] MEDS: Lactated Ringer's 1,000 ML IV SCH ×3 (14:11→21:05)
[2022-12-14] MEDS: CEFAZOLIN 2 GM in Sodium Chloride 0.9% 100 ML IVPB SCH ×2 (14:40→21:09)
[2022-12-14] MEDS: Escitalopram Oxalate 20 mg Tablet PO SCH (21:03)
[2022-12-15] MEDS: Ondansetron ODT 4 MG TAB PO SCH ×5 (00:21→22:08)
[2022-12-15] MEDS: Lactated Ringer's 1,000 ML IV SCH ×3 (00:21→07:53)
[2022-12-15] MEDS: HYDROcodone/Acetaminophen 10/325 mg Tablet PO SCH ×4 (00:21→22:39)
[2022-12-15 07:15] LABS: #Eosinphils 0.4 thou/uL (0.0-0.7); #Monocytes 0.9 thou/uL (0.11-0.59); #Neutrophils 6.2 thou/uL (1.40-6.50); %Basophils 0.5 % (0.0-1.0); %Eosinophils 4.8 % (0.0-10.0); %Lymphocytes 8.4 % (21.0-51.0); %Monocytes 11.3 % (0.0-10.0); %Neutrophils 74.6 % (42.0-75.0); Hematocrit 40.6 % (36.0-47.0); Hemoglobin 12.3 g/dL (12.0-16.0); Mean Corpuscular HGB CONC 30.3 g/dL (32.0-36.0); Mean Corpuscular Hemoglobin 30.7 pg (27.0-31.0); Mean Corpuscular Volume 101.2 fl (78.0-98.0); Mean Platelet Volume 11.2 fL (7.4-10.4); Platelet Count 144 10x3/uL (130-400); RBC Distribution Width 16.4 % (11.5-14.5); Red Blood Cell (RBC) Count 4.01 mill/uL (4.20-5.40); White Blood Cell (WBC) Count 8.3 10x3/uL (4.8-10.8)
[2022-12-15] MEDS ORDERED: Promethazine HCl 12.5 MG in Sodium Chloride 0.9% 50 ML IVPB PRN (08:39)
[2022-12-15 09:37] LABS: Chloride 102 mmol/L (98-107); Potassium 4.8 mmol/L (3.5-5.1); Sodium 132 mmol/L (136-145)
[2022-12-15 09:38] LABS: Calcium 7.7 mg/dL (7.8-10.44)
[2022-12-15 09:39] LABS: Globulin 2.7 g/dL (2.4-3.5); Glucose 65 mg/dL (70-105); Protein, Total 4.7 g/dL (6.0-8.3)
[2022-12-15 09:40] LABS: Anion Gap 12 mmol/L (10-20); Bilirubin, Total 0.2 mg/dL (0.2-1.2); Carbon Dioxide 23 mmol/L (22-29)
[2022-12-15 09:42] LABS: Alkaline Phosphatase 129 U/L (40-110); Calc. Creatinine Clearance 57 mL/min (70-130); Estimated GFR 69
[2022-12-15 09:43] LABS: BUN (Urea Nitrogen) 22 mg/dL (9.8-20.1)
[2022-12-15 09:44] LABS: AST (SGOT) 14 U/L (5-34)
[2022-12-15 09:45] LABS: ALT (SGPT) Less than 7 U/L (8-55)
[2022-12-15] MEDS: Polyethylene Glycol 3350 17 GM Packet PER TUBE SCH ×2 (09:56→22:40)
[2022-12-15] MEDS ORDERED: Promethazine HCl 12.5 MG SUPP PR PRN (10:25)
[2022-12-15] MEDS ORDERED: Promethazine HCl 12.5 MG SUPP PR SCH (10:45)
[2022-12-15] MEDS: Morphine 4 MG/ML VIAL SLOW IVP PRN (12:16)
[2022-12-15] MEDS: BuPROPion XL 150 MG ER.TAB PO SCH (15:25)
[2022-12-15] MEDS: Amlodipine 10 MG TAB PO SCH (15:25)
[2022-12-15] MEDS: busPIRone HCl 10 MG TAB PO SCH ×2 (15:25→22:09)
[2022-12-15] MEDS: Loratadine 10 MG TAB PO SCH (15:26)
[2022-12-15] MEDS: Folic Acid 1 MG TAB PO SCH (15:26)
[2022-12-15] MEDS: Lisinopril/Hydrochlorothiazide 20/25 mg Tablet PO SCH (15:26)
[2022-12-15] MEDS: Mycophenolate 250 MG CAP PO SCH ×2 (15:26→22:35)
[2022-12-15] MEDS: Collagenase 250 UNITS/GM Ointment 30 GM TUBE TOP SCH (15:28)
[2022-12-15] MEDS ORDERED: Dextrose 10% in Water 250 ML IVPB PRN (20:33)
[2022-12-15] MEDS: Dextrose 5%-Lactated Ringers 1,000 ML IV SCH (20:46)
[2022-12-15] MEDS: Escitalopram Oxalate 20 mg Tablet PO SCH (22:09)
[2022-12-16] MEDS: Dextrose 5%-Lactated Ringers 1,000 ML IV SCH ×2 (04:51→13:47)
[2022-12-16] MEDS: Ondansetron ODT 4 MG TAB PO SCH ×4 (04:54→21:15)
[2022-12-16 05:28] LABS: #Eosinphils 0.1 thou/uL (0.0-0.7); #Monocytes 0.9 thou/uL (0.11-0.59); #Neutrophils 5.8 thou/uL (1.40-6.50); %Basophils 0.4 % (0.0-1.0); %Eosinophils 1.8 % (0.0-10.0); %Monocytes 11.4 % (0.0-10.0); Hematocrit 37.4 % (36.0-47.0); Hemoglobin 11.4 g/dL (12.0-16.0); Mean Corpuscular HGB CONC 30.5 g/dL (32.0-36.0); Mean Corpuscular Hemoglobin 31.1 pg (27.0-31.0); Mean Corpuscular Volume 101.9 fl (78.0-98.0); Mean Platelet Volume 11.4 fL (7.4-10.4); Platelet Count 161 10x3/uL (130-400); RBC Distribution Width 16.3 % (11.5-14.5); Red Blood Cell (RBC) Count 3.67 mill/uL (4.20-5.40); White Blood Cell (WBC) Count 7.6 10x3/uL (4.8-10.8)
[2022-12-16] MEDS ORDERED: Lorazepam 2 MG/ML VIAL ONE (05:32)
[2022-12-16 06:08] LABS: ALT (SGPT) Less than 7 U/L (8-55); AST (SGOT) 12 U/L (5-34); Albumin 1.6 g/dL (3.5-5.0); Alkaline Phosphatase 120 U/L (40-110); Anion Gap 10 mmol/L (10-20); BUN (Urea Nitrogen) 20 mg/dL (9.8-20.1); Bilirubin, Total 0.2 mg/dL (0.2-1.2); Calc. Creatinine Clearance 51 mL/min (70-130); Calcium 7.5 mg/dL (7.8-10.44); Carbon Dioxide 23 mmol/L (22-29); Chloride 103 mmol/L (98-107); Estimated GFR 60; Globulin 2.7 g/dL (2.4-3.5); Glucose 139 mg/dL (70-105); Potassium 4.8 mmol/L (3.5-5.1); Protein, Total 4.3 g/dL (6.0-8.3); Sodium 131 mmol/L (136-145)
[2022-12-16] MEDS: HYDROcodone/Acetaminophen 10/325 mg Tablet PO SCH ×3 (06:11→21:28)
[2022-12-16] MEDS: busPIRone HCl 10 MG TAB PO SCH ×2 (08:44→21:17)
[2022-12-16] MEDS: Amlodipine 10 MG TAB PO SCH (08:44)
[2022-12-16] MEDS: Folic Acid 1 MG TAB PO SCH (08:44)
[2022-12-16] MEDS: Polyethylene Glycol 3350 17 GM Packet PER TUBE SCH ×2 (08:44→21:15)
[2022-12-16] MEDS: Loratadine 10 MG TAB PO SCH (08:44)
[2022-12-16] MEDS: BuPROPion XL 150 MG ER.TAB PO SCH (08:45)
[2022-12-16] MEDS: Mycophenolate 250 MG CAP PO SCH ×2 (08:45→21:16)
[2022-12-16] MEDS: Lisinopril/Hydrochlorothiazide 20/25 mg Tablet PO SCH (08:45)
[2022-12-16] MEDS: Collagenase 250 UNITS/GM Ointment 30 GM TUBE TOP SCH (08:46)
[2022-12-16] MEDS: Lactated Ringer's 1,000 ML IV SCH ×2 (08:54→21:17)
[2022-12-16] MEDS ORDERED: Simethicone Chewable 80 MG TAB PO PRN (11:26)
[2022-12-16] MEDS ORDERED: Simethicone Chewable 80 MG TAB PO SCH (11:30)
[2022-12-16] MEDS: Simethicone Chewable 80 MG TAB PO SCH ×3 (13:54→21:30)
[2022-12-16] MEDS: Promethazine HCl 12.5 MG SUPP PR SCH ×2 (13:54→18:17)
[2022-12-16] MEDS: Ipratropium/Albuterol 3 ML NEB NEB PRN (19:25)
[2022-12-16] MEDS: Escitalopram Oxalate 20 mg Tablet PO SCH (21:30)
[2022-12-17] MEDS: Promethazine HCl 12.5 MG SUPP PR SCH ×4 (00:50→20:22)
[2022-12-17] MEDS: Simethicone Chewable 80 MG TAB PO SCH ×6 (00:51→20:20)
[2022-12-17] MEDS: Ondansetron ODT 4 MG TAB PO SCH ×4 (03:15→20:19)
[2022-12-17] MEDS: HYDROcodone/Acetaminophen 10/325 mg Tablet PO SCH ×3 (05:14→21:27)
[2022-12-17 06:32] LABS: #Eosinphils 0.5 thou/uL (0.0-0.7); #Monocytes 0.9 thou/uL (0.11-0.59); #Neutrophils 5.6 thou/uL (1.40-6.50); %Basophils 0.4 % (0.0-1.0); %Eosinophils 5.9 % (0.0-10.0); %Lymphocytes 9.6 % (21.0-51.0); %Monocytes 11.1 % (0.0-10.0); %Neutrophils 72.6 % (42.0-75.0); Hematocrit 38.7 % (36.0-47.0); Hemoglobin 11.8 g/dL (12.0-16.0); Mean Corpuscular HGB CONC 30.5 g/dL (32.0-36.0); Mean Corpuscular Hemoglobin 31.1 pg (27.0-31.0); Mean Corpuscular Volume 101.8 fl (78.0-98.0); Mean Platelet Volume 11.3 fL (7.4-10.4); Platelet Count 176 10x3/uL (130-400); RBC Distribution Width 16.3 % (11.5-14.5); White Blood Cell (WBC) Count 7.6 10x3/uL (4.8-10.8)
[2022-12-17] MEDS: Ipratropium/Albuterol 3 ML NEB NEB PRN ×3 (07:08→18:55)
[2022-12-17 07:36] LABS: ALT (SGPT) Less than 7 U/L (8-55); AST (SGOT) 14 U/L (5-34); Albumin 1.9 g/dL (3.5-5.0); Alkaline Phosphatase 132 U/L (40-110); Anion Gap 9 mmol/L (10-20); BUN (Urea Nitrogen) 22 mg/dL (9.8-20.1); Bilirubin, Total 0.2 mg/dL (0.2-1.2); Calc. Creatinine Clearance 48 mL/min (70-130); Calcium 7.7 mg/dL (7.8-10.44); Carbon Dioxide 26 mmol/L (22-29); Chloride 102 mmol/L (98-107); Estimated GFR 56; Globulin 2.7 g/dL (2.4-3.5); Glucose 82 mg/dL (70-105); Potassium 4.4 mmol/L (3.5-5.1); Protein, Total 4.6 g/dL (6.0-8.3); Sodium 133 mmol/L (136-145)
[2022-12-17] MEDS: Mycophenolate 250 MG CAP PO SCH ×2 (08:21→20:20)
[2022-12-17] MEDS: Loratadine 10 MG TAB PO SCH (08:21)
[2022-12-17] MEDS: Folic Acid 1 MG TAB PO SCH (08:21)
[2022-12-17] MEDS: busPIRone HCl 10 MG TAB PO SCH ×2 (08:21→20:19)
[2022-12-17] MEDS: BuPROPion XL 150 MG ER.TAB PO SCH (08:21)
[2022-12-17] MEDS: Lisinopril/Hydrochlorothiazide 20/25 mg Tablet PO SCH (08:22)
[2022-12-17] MEDS: Amlodipine 10 MG TAB PO SCH (08:23)
[2022-12-17] MEDS: Lactated Ringer's 1,000 ML IV SCH (08:23)
[2022-12-17] MEDS: Collagenase 250 UNITS/GM Ointment 30 GM TUBE TOP SCH (08:24)
[2022-12-17] MEDS: Polyethylene Glycol 3350 17 GM Packet PER TUBE SCH ×2 (08:24→20:21)
[2022-12-17] MEDS ORDERED: Cefepime 1 GM in Sodium Chloride 0.9% 100 ML IVPB SCH (15:00)
[2022-12-17 15:19] LABS: SARS-CoV-2 NAA Rapid Test Not Detected (NotDetected)
[2022-12-17] MEDS: Escitalopram Oxalate 20 mg Tablet PO SCH (20:19)
[2022-12-17 20:52] VITALS: TEMP 97.3
[2022-12-17] MEDS: traZODone HCl 50 MG TAB PO PRN (21:26)
[2022-12-17] MEDS ORDERED: Benzonatate 100 MG CAP PO PRN (21:30)
[2022-12-18] MEDS ORDERED: Amiodarone 150 MG/3 ML VIAL ONE ×2 (00:54→01:33)
[2022-12-18] MEDS ORDERED: Naloxone HCl 0.4 mg/ml Vial ONE (00:54)
[2022-12-18] MEDS ORDERED: DOPamine/D5W 400 mg/250 ml PREMIX ONE (00:54)
[2022-12-18] MEDS ORDERED: Calcium Chloride 1 GM/10 ML Abboject SYRINGE ONE ×2 (00:54→01:33)
[2022-12-18] MEDS ORDERED: Sodium Bicarb 50 MEQ/50 ML Abboject 8.4% SYRINGE ONE ×2 (00:54→01:33)
[2022-12-18] MEDS ORDERED: EPINEPHrine 1 MG/10 ML Abboject SYRINGE ONE ×2 (00:54→01:33)
[2022-12-18] MEDS ORDERED: Lidocaine 2% PF 100 mg/5 ml Syringe ONE (01:33)
[2022-12-18 02:02] LABS: Actual Bicarbonate (HCO3a) 15.6 mEq/L (22-28); CO2 Tension 42.2 mmHg (35.0-45.0); Hematocrit-ABG 34 % (36.0-47.0); Hemoglobin (Hb) 11.4 g/dL (12.0-16.0); O2 Tension (PaO2), arterial 88.9 mmHg (80.0-100.0); Potassium - ABG Lab 4.78 mmol/L (3.70-5.30)
[2022-12-18 02:03] LABS: Puncture Site RRA; pH, Arterial 7.186 (7.35-7.45)
[2022-12-18 02:14] VITALS: BP 82/70
[2022-12-18] MEDS ORDERED: EPINEPHrine 4 MG in Dextrose 5% in Water 250 ML IVP SCH (02:15)
[2022-12-18] MEDS ORDERED: DOPamine 400 MG/D5W 250 ML 250 ML IVPB SCH (02:15)
[2022-12-18] MEDS ORDERED: NOREPINEPHRINE 8 MG/250 ML-D5W 250 ML IVPB SCH (02:30)
[2022-12-18 02:55] LABS: Hemoglobin 10.2 g/dL (12.0-16.0); Mean Corpuscular HGB CONC 29.1 g/dL (32.0-36.0); Mean Corpuscular Hemoglobin 31.1 pg (27.0-31.0); Mean Platelet Volume 11.5 fL (7.4-10.4); Platelet Count 106 10x3/uL (130-400); RBC Distribution Width 16.2 % (11.5-14.5); Red Blood Cell (RBC) Count 3.28 mill/uL (4.20-5.40); White Blood Cell (WBC) Count 12.7 10x3/uL (4.8-10.8)
[2022-12-18 02:56] LABS: Delete Auto Diff?? YES; Manual Diff?? YES; Mean Corpuscular Volume 106.7 fl (78.0-98.0)
[2022-12-18 03:06] LABS: Actual Bicarbonate (HCO3a) 19.1 mEq/L (22-28); CO2 Tension 45.7 mmHg (35.0-45.0); Carboxyhemoglobin (COHb) 1.2 gm% (0.0-3.0); Hematocrit-ABG 33 % (36.0-47.0); Hemoglobin (Hb) 11.2 g/dL (12.0-16.0); O2 Tension (PaO2), arterial 70.8 mmHg (80.0-100.0); Potassium - ABG Lab 4.86 mmol/L (3.70-5.30); Puncture Site LINE
[2022-12-18 03:07] LABS: ALV-art Gradient 585.075 mmHg (0-20)
[2022-12-18 03:08] LABS: Calc. Creatinine Clearance 36 mL/min (70-130); Estimated GFR 40
[2022-12-18 03:09] LABS: Troponin I 0.012 ng/mL (< 0.028)
[2022-12-18 03:13] LABS: Lactic Acid 12.7 mmol/L (0.5-2.2)
[2022-12-18 03:18] LABS: ALT (SGPT) 17 U/L (8-55); AST (SGOT) 256 U/L (5-34); Albumin 1.4 g/dL (3.5-5.0); Alkaline Phosphatase 403 U/L (40-110); Anion Gap 21 mmol/L (10-20); BUN (Urea Nitrogen) 26 mg/dL (9.8-20.1); Bilirubin, Total 0.3 mg/dL (0.2-1.2); Calcium 10.1 mg/dL (7.8-10.44); Carbon Dioxide 16 mmol/L (22-29); Chloride 105 mmol/L (98-107); Globulin 1.9 g/dL (2.4-3.5); Glucose 108 mg/dL (70-105); Phosphorus 7.4 mg/dL (2.3-4.7); Protein, Total 3.3 g/dL (6.0-8.3); Sodium 137 mmol/L (136-145)
[2022-12-18 03:31] LABS: Anisocytosis SLIGHT = 6-15 cells HPF (0-5); Band 6 % (5-11); Burr Cells SLIGHT = 2-5 cells HPF (0-1); CellaVision Operator ID LAB.JMM; Eosinophils 3 % (0-10); Large Platelets 3.1 % (0-5); Lymphocytes 18 % (21-51); Macrocytosis MODERATE=16-30 cells HPF (0-5); Metamyelocyte 1 % (0-0); Monocytes 4 % (0-10); Neutrophil 67 % (42-75); Nucleated RBC (Manual Ct) 1 % (0); Platelet Adequacy Comment Platelets Decreased; Polychromasia SLIGHT = 2-3 cells HPF (0-2); Smudge Cells 20.4 %; Total Cell Count 98
[2022-12-18] MEDS ORDERED: Lorazepam 2 MG/ML VIAL ONE (04:14)
[2022-12-18] MEDS ORDERED: Morphine 4 MG/ML VIAL SLOW IVP SCH (04:15)
[2022-12-18] MEDS ORDERED: Lorazepam 2 MG/ML VIAL SLOW IVP SCH (04:30)
[2022-12-18] MEDS ORDERED: NOREPINEPHRINE 8 MG/250 ML-D5W 250 ML ONE (05:36)
== END 2022-12-18 04:15 | disposition expired | DRG 438 ==
LOC: ERS 11:30 → ERHOLD 14:22 → T4-A 19:23 → CCU 12-18 01:32
PROVIDERS: ADMIT Student in an Organized Health Care Education/Training Program; ATTEND Student in an Organized Health Care Education/Training Program
PROC: 03HY32Z Insertion of Monitoring Device into Upper Artery, Percutaneous Approach (ICD-10-PCS; principal; 2022-12-18)
PROC: 4A133B1 Monitoring of Arterial Pressure, Peripheral, Percutaneous Approach (ICD-10-PCS; 2022-12-18)
PROC: 4A133J1 Monitoring of Arterial Pulse, Peripheral, Percutaneous Approach (ICD-10-PCS; 2022-12-18)
PROC: 02HV33Z Insertion of Infusion Device into Superior Vena Cava, Percutaneous Approach (ICD-10-PCS; 2022-12-18)
PROC: B548ZZA Ultrasonography of Superior Vena Cava, Guidance (ICD-10-PCS; 2022-12-18)
PROC: 5A12012 Performance of Cardiac Output, Single, Manual (ICD-10-PCS; 2022-12-18)
PROC: 5A1935Z Respiratory Ventilation, Less than 24 Consecutive Hours (ICD-10-PCS; 2022-12-18)
PROC: 0BH17EZ Insertion of Endotracheal Airway into Trachea, Via Natural or Artificial Opening (ICD-10-PCS; 2022-12-18)
PROC: 3E033XZ Introduction of Vasopressor into Peripheral Vein, Percutaneous Approach (ICD-10-PCS; 2022-12-18)
PROC: 4A133R1 Monitoring of Arterial Saturation, Peripheral, Percutaneous Approach (ICD-10-PCS; 2022-12-18)
DX: K85.90 Acute pancreatitis without necrosis or infection, unspecified (principal); J69.0 Pneumonitis due to inhalation of food and vomit; J96.20 Acute and chronic respiratory failure, unspecified whether with hypoxia or hypercapnia; M86.8X7 Other osteomyelitis, ankle and foot; L03.116 Cellulitis of left lower limb; J93.9 Pneumothorax, unspecified; E87.20 Acidosis, unspecified; M34.9 Systemic sclerosis, unspecified; K21.9 Gastro-esophageal reflux disease without esophagitis; I10 Essential (primary) hypertension; Z96.0 Presence of urogenital implants; F41.9 Anxiety disorder, unspecified; F32.A Depression, unspecified; E11.69 Type 2 diabetes mellitus with other specified complication; I25.10 Atherosclerotic heart disease of native coronary artery without angina pectoris; M34.1 CR(E)ST syndrome; J84.10 Pulmonary fibrosis, unspecified; E87.6 Hypokalemia; E83.51 Hypocalcemia; Z20.822 Contact with and (suspected) exposure to COVID-19; D53.9 Nutritional anemia, unspecified; G47.00 Insomnia, unspecified; R94.31 Abnormal electrocardiogram [ECG] [EKG]; E88.09 Other disorders of plasma-protein metabolism, not elsewhere classified; K59.00 Constipation, unspecified; J02.9 Acute pharyngitis, unspecified; R57.0 Cardiogenic shock; Z66 Do not resuscitate; Z79.4 Long term (current) use of insulin; Z87.442 Personal history of urinary calculi; Z87.09 Personal history of other diseases of the respiratory system; Z90.710 Acquired absence of both cervix and uterus; Z98.51 Tubal ligation status; Z98.890 Other specified postprocedural states; Z95.5 Presence of coronary angioplasty implant and graft; Z89.412 Acquired absence of left great toe; Z79.899 Other long term (current) drug therapy; Z79.51 Long term (current) use of inhaled steroids; Z79.891 Long term (current) use of opiate analgesic; Z79.2 Long term (current) use of antibiotics; Z79.84 Long term (current) use of oral hypoglycemic drugs; Z98.84 Bariatric surgery status; Z99.81 Dependence on supplemental oxygen; Z87.891 Personal history of nicotine dependence
CPT/HCPCS: 36415; 36416; 36600; 71045; 74177; 76705; 80053; 81001; 82805; 83605; 83690; 83735; 84100; 84478; 84484; 85025; 86140; 87070; 87077; 87186; 87205; 93005; 94002; 94640; 96374; 96375; 96376; 97139; J0171; J0282; J0690; J0692; J1265; J1650; J1885; J2001; J2270; J2272; J2310; J2405; J3480; J3490; J7070; J7120; J7517; J7620; Q0162; Q9967; U0002